=== PATIENT | male | born 1980 | race Caucasian/White ===

== ENCOUNTER 2025-01-19 10:11 | Emergency (ER) | payer OTHER, SELFPAY ==
[2025-01-19] VITALS (19 sets, daily range): BP systolic 156–198; BP diastolic 82–142; PULSE 66–82; RESP 14–22; TEMP 36.4–36.8; O2SAT 96–100; BMI 33.2
--- NOTE | 2025-01-19 10:27 | ED.DIZZY ---
HPI - Dizziness General Chief Complaint: General Medical Stated Complaint: HYPERTENSION,DIZZINESS PER EMS Time Seen by Provider: 01/19/25 10:25 Source: patient, EMS, RN notes reviewed and old records reviewed Mode of arrival: EMS History of Present Illness ED Provider: Autumn Mcneil PA-C HPI Narrative: 44-year-old male with a past medical history of HTN, anxiety, presenting to the ED via EMS complaining of elevated BP since the beginning of the year, worsening recently. Admits has been prescribed Propranolol for anxiety, &newly prescribed Hydralazine 1 week ago by his Digital Ad[employer] Specialist at the [place]. states he has been more aware/monitoring his blood pressures, today was 214/140 and 188/142 for EMS. Admits to compliance with prescribed medications, took 50 mg of Hydralazine this morning and his prescribed Propranolol. Reports mild headache x awhile, unchanged. Denies vision change or loss, numbness, tingling, weakness, CP/SOB, lightheadedness/dizziness, nausea/vomiting Related Data Allergies Allergy/AdvReac Type Severity Reaction Status Date / Time lactose Allergy Intermediate Gastrointestinal Verified 01/19/25 10:35 Upset Review of Systems Review of Systems: Yes all other systems are reviewed and are negative Constitutional: Constitutional: Reports as per HPI Neurologic: Denies Abnormal speech present [facility] Past Medical History Attestation statement: The following information was validated with the patient. Source: old records reviewed Social History Social History Advance Directives: No Advance Directives Information Provided: Yes Physical Exam Vital Signs: Vital Signs: Last Vital Signs Temp 98.1 F 01/19/25 16:01 Pulse 76 01/19/25 16:01 Resp 20 01/19/25 16:01 BP 181/112 H 01/19/25 16:01 Pulse Ox 99 01/19/25 16:01 O2 Del Method Room Air 01/19/25 16:01 BMI result Body Mass Index 33.2 Const: General: cooperative, healthy appearing and no acute distress Orientation/consciousness: patient oriented x3 Limitations: no limitations HEENT: Head: Yes normal to inspection and Yes atraumatic Ears: hearing grossly normal bilaterally General nose exam: Normal external nose present Face and sinus: Yes normal facial exam Throat: Yes posterior oropharynx normal, Yes tonsils normal and Yes uvula midline Eyes: General: appearance normal, both eyes and all related structures Pupils: Equal, round and reactive pupils present EOM: EOMs intact bilaterally Neck: Neck: Yes normal visual inspection and Yes no meningeal signs Resp: Effort & Inspection: normal respiratory effort and no respiratory distress Auscultation: clear to auscultation bilaterally, no crackles, no rales, no rhonchi and no wheezes Cardio: Rate: regular rate Heart sounds: S1 normal heart sound present and S2 normal heart sound present GI: Inspection: Yes normal to inspection Palpation (GI): Soft to palpation, nontender, no guarding and not rigid Skin: Rashes: no rashes Wounds: no wounds Neuro: General: patient oriented x3, tone normal, moves all extremities, no meningeal signs, no focal motor deficits and CN's II-XI intact bilaterally Cranial nerves: Yes CN's II-XII intact bilaterally, Yes Equal, round and reactive pupils present and Yes Bilaterally intact EOM present Cognition (Neuro): normal cognition Speech: No Abnormal speech present Gait exam (Neuro): Normal gait present Motor exam (neuro): 5/5 motor strength present throughout Extrem: General: Yes normal to inspection Course Course Course Narrative: -blood pressure increasing to 186/110 > patient states he is due for his 50 mg of hydralazine. Will dose appropriately and re-evaluate -labs are reassuring. Initial troponin 8.3, will obtain repeat -tox screen positive for THC > repeat troponin without rise, mi unlikely -BP remain elevated, patient very anxious, stressed, suspect this is related to his elevated BP. Will give dose of p.o. amlodipine > BP slightly improved after p.o. amlodipine. Patient increasingly anxious/agitated surrounding ride home. We will give his PRN home dose of Klonopin. Will be taking Uber home -1652--BP 177/103. Patient remains asymptomatic, continues to feel stressed he is in the emergency department. -1700--blood pressure 163/99 after home dose Klonopin given. Safe for discharge home at this time. Discussed he needs to [facility]. His hydralazine is new, & likely needs to be adjusted, his BP needs to be monitored closely. Will not be adding additional prescription at this time Results discussed with patient including worrisome signs and symptoms and strict return precautions, and when to return to the emergency department. They verbalized understanding and feel safe for discharge at this time. Medications Administered Discontinued Medications Generic Name Dose Route Start Last Admin Trade Name Cain PRN Reason Stop Dose Admin Amlodipine Besylate 5 mg 01/19/25 13:50 01/19/25 14:08 Amlodipine Besylate 5 Mg Tablet PO 01/19/25 13:51 5 mg ONCE ONE Administration Protocol Clonazepam 1 mg 01/19/25 15:52 01/19/25 16:04 Clonazepam 1 Mg Tablet PO 01/19/25 15:53 1 mg ONCE ONE Administration Hydralazine HCl 25 mg 01/19/25 11:53 01/19/25 12:36 Hydralazine Hcl 25 Mg Tablet PO 01/19/25 11:54 25 mg ONCE ONE Administration Protocol Hydralazine HCl 25 mg 01/19/25 12:28 01/19/25 12:36 Hydralazine Hcl 25 Mg Tablet PO 01/19/25 12:29 25 mg ONCE ONE Administration Protocol Medical Decision Making Medical Decision Making MDM Narrative: 44-year-old male with a past medical history of HTN, anxiety, presenting to the ED via EMS complaining of elevated BP since the beginning of the year, worsening recently. On exam hypertensive 174/106, NAD, nontoxic appearing, no focal neuro deficits. Concern for hypertensive urgency/emergency. Low suspicion for ICH. Rule out ADIN/atypical ACS. Plan: EKG, labs, BP monitoring Please refer to course for remaining clinical decision making, interpretation of labs/imaging results, and discussions with consultants and/or family members. Differential Diagnosis Differential Diagnoses: The differential diagnosis associated with the presentation includes As above Admission/Observation Consideration of admission/observation: Escalation of care including admission/observation considered Lab Data [facility] Lab Attestation statement: I reviewed the patient's lab results. 01/19/25 10:52 01/19/25 10:52 Labs: Lab Results 01/19/25 01/19/25 01/19/25 Range/Units 10:52 11:45 12:32 WBC 8.1 (4.8-10.8) X10*3/uL RBC 4.94 (4.60-5.80) X10*6/uL Hgb 14.7 (14.0-18.0) g/dl Hct 43.2 (42.0-52.0) % MCV 87.4 (80.0-98.0) fL MCH 29.8 (27.0-33.0) pg MCHC 34.0 (31.0-36.0) g/dl RDW 13.7 (11.0-16.0) % Plt Count 265 (160-400) X10*3/uL MPV 9.8 (9.4-12.4) fL Immature Gran % (Auto) 0.4 (0.0-0.4) % Neut % (Auto) 51.7 (45-73) % Lymph % (Auto) 36.9 (20-40) % [place] % (Auto) 8.4 (2-11) % Eos % (Auto) 2.0 (0-4) % Baso % (Auto) 0.6 (0-2) % Lymph # (Auto) 3.0 (1.2-4.9) X10*3/uL [place] # (Auto) 0.7 (0.1-1.2) X10*3/uL Eos # (Auto) 0.2 (0.0-0.4) X10*3/uL Baso # (Auto) 0.1 (0.0-0.2) X10*3/uL Abs Immat Gran (auto) 0.03 (0.00-0.03) X10*3/uL Absolute Neuts (auto) 4.2 (2.0-8.3) x10*3/uL Absolute Nucleated RBC 0.000 (0.0-0.012) X10*3/uL Nucleated RBC % (auto) 0.0 (0.0-0.2) /100WBC Sodium 140 (135-145) mmol/L Potassium 3.8 (3.3-5.1) mmol/L Chloride 106 (96-108) mmol/L Carbon Dioxide 26 (22-29) mmol/L Anion Gap 12 (12-20) BUN 15 (9-16) mg/dL Creatinine 0.85 (0.5-1.4) mg/dL Estim Creat Clear Calc 137.0 Estimated GFR > 60 Random Glucose 94 (60-115) mg/dL Calcium 9.0 (8.4-10.2) mg/dL Magnesium 2.1 (1.6-2.6) mg/dL Total Bilirubin 0.4 (0.0-1.0) mg/dL Direct Bilirubin 0.1 (0.0-0.5) mg/dL AST 21 (5-37) U/L ALT 31 (0-40) U/L Troponin I High Sens 8.3 6.4 (<3.5-35.0) ng/L Total Protein 6.8 (6.5-8.0) g/dL Albumin 4.3 (3.5-5.0) g/dL Urine Color Yellow Urine Appearance Clear Urine pH 7.0 (5.0-9.0) Ur Specific [place] <= 1.005 (1.005-1.025) Urine Protein Negative (Neg-Trace) mg/dL Urine Glucose (UA) Negative (Negative) mg/dL Urine Ketones Negative (Negative) mg/dL Urine Blood Negative (Negative) Urine Nitrite Negative (Negative) Ur Leukocyte Esterase Negative (Negative) Urine Opiates Screen Not Detected (Not Detect) Ur Buprenorphine Scrn Not Detected (Not Detect) ng/mL Ur Oxycodone Screen Not Detected (Not Detect) ng/mL Urine Methadone Screen Not Detected (Not Detect) ng/mL Urine Fentanyl Screen Not Detected (Not Detect) Ur Barbiturates Screen Not Detected (Not Detect) Ur Phencyclidine Scrn Not Detected (Not Detect) Ur Amphetamines Screen Not Detected (Not Detect) U Benzodiazepines Scrn Not Detected (Not Detect) Urine Cocaine Screen Not Detected (Not Detect) U Marijuana (THC) Screen POSITIVE H (Not Detect) Independent Interpretation I performed an independent interpretation of an: EKG Radiology Impression Discussion of test interpretation with radiology: I have reviewed the radiologist's reading. Independent Historian Clinical information obtained from an independent historian. History obtained from or confirmed by: EMS External Record Review External record reviewed: Inpatient record, Office record, Outpatient record, Prior outpatient labs, Prior outpatient radiology, Primary care record and Outside ED record Tests considered The following testing was considered but not selected: As above Prescription Management I considered prescription management with: Other Chronic Conditions Patient?s care impacted by: Hypertension and Other Social Determinants Patient?s care significantly limited by Social Determinants of Health including: Problems related to primary support group and Other Social Determinant of Health Discharge Plan Discharge Clinical Impression: Uncontrolled hypertension Patient Disposition: Home, Self-Care Instructions: Heart Healthy Diet (DC), Hypertension (ED) Additional Instructions: Your blood work was reassuring today It is crucial you take your blood pressure medications as prescribed and do not miss any doses Continue to monitor blood pressure if remains high, you develop any lightheadedness, dizziness, headaches, chest pains, weakness, numbness or tingling return to the ED immediately Referrals: Physician,Areli J [Primary Care Provider] - 2 days Print Language: French
--- NOTE | 2025-01-19 10:36 | ECG_ITS ---
Test Reason : htn Blood Pressure : */* mmHG Vent. Rate : 64 BPM Atrial Rate : 64 BPM P-R Int : 166 ms QRS Dur : 94 ms QT Int : 400 ms P-R-T Axes : 39 27 8 degrees QTcB Int : 412 ms Normal sinus rhythm Normal ECG No previous ECGs available Referred By: Autumn Mcneil Electronically Signed By: FANNIE CHI
[2025-01-19 10:58] LABS: MANUAL DIFF FLAG NO
[2025-01-19 10:59] LABS: Basophils Absolute Auto 0.1 X10*3/uL (0.0-0.2); Basophils Percent Auto 0.6 % (0-2); Eosinophils Absolute Auto 0.2 X10*3/uL (0.0-0.4); Hematocrit 43.2 % (42.0-52.0); Hemoglobin 14.7 g/dl (14.0-18.0); Imm Gran Abs Auto 0.03 X10*3/uL (0.00-0.03); Imm Gran Pct Auto 0.4 % (0.0-0.4); Lymphocytes Percent Auto 36.9 % (20-40); Mean Corpuscular Hemoglobin 29.8 pg (27.0-33.0); Mean Corpuscular Volume 87.4 fL (80.0-98.0); Mean Platelet Volume 9.8 fL (9.4-12.4); Monocytes Absolute Auto 0.7 X10*3/uL (0.1-1.2); Monocytes Percent Auto 8.4 % (2-11); Neutrophils Absolute Auto 4.2 x10*3/uL (2.0-8.3); Neutrophils Percent Auto 51.7 % (45-73); Platelet Count 265 X10*3/uL (160-400); Red Blood Count 4.94 X10*6/uL (4.60-5.80); Red Cell Distribution Width 13.7 % (11.0-16.0); White Blood Count 8.1 X10*3/uL (4.8-10.8)
[2025-01-19 11:29] LABS: Troponin-I High Sensitivity 8.3 ng/L (<3.5-35.0)
[2025-01-19 11:54] LABS: Appearance Urine Clear; Color Urine Yellow; Glucose Urine UA Negative (Negative); Leukocyte Esterase Urine Negative (Negative); Nitrite Urine Negative (Negative); Specific Gravity - Urine <= 1.005 (1.005-1.025); Urine Blood Negative (Negative); Urine Ketones Negative (Negative); Urine Protein Negative (Neg-Trace)
[2025-01-19 12:04] LABS: Amphetamine Screen Urine Not Detected (Not Detect); Barbiturates, Urine Not Detected (Not Detect); Benzodiazepines Screen Urine Not Detected (Not Detect); Buprenorphine Scr Not Detected (Not Detect); Cannabinoid Screen Urine POSITIVE (Not Detect); Cocaine Screen Urine Not Detected (Not Detect); Fentanyl, urine Not Detected (Not Detect); Methadone Screen, Urine Not Detected (Not Detect); Opiate Screen Urine Not Detected (Not Detect); Oxycodone Screen Urine Not Detected (Not Detect); Phencyclidine Screen Urine Not Detected (Not Detect)
[2025-01-19 12:07] LABS: Alanine Aminotransferase 31 U/L (0-40); Albumin Level 4.3 g/dL (3.5-5.0); Anion Gap 12 (12-20); Aspartate Amino Transferase 21 U/L (5-37); Bilirubin Direct 0.1 mg/dL (0.0-0.5); Bilirubin Total 0.4 mg/dL (0.0-1.0); Blood Urea Nitrogen 15 mg/dL (9-16); Carbon Dioxide 26 mmol/L (22-29); Chloride 106 mmol/L (96-108); Estimated Glomerular Filt Rate > 60; Glucose Random 94 mg/dL (60-115); Magnesium 2.1 mg/dL (1.6-2.6); Potassium 3.8 mmol/L (3.3-5.1); Sodium 140 mmol/L (135-145); Total Protein 6.8 g/dL (6.5-8.0)
--- NOTE | 2025-01-19 12:30 | PC.NURSE ---
When attempting to medicate the patient, he stated I normally take Hydralazine 50mg now . Spoke with FLORENCIA Singh regarding this. Agreed to enter a 2nd order of Hydralazine 25mg for a total administration of Hydralazine 50mg for elevated BP.
[2025-01-19] MEDS: hydrALAZINE HCl 25 MG TABLET PO ×2 (12:36)
--- OUTSIDE RECORDS SUMMARY | 2025-01-19 13:05 | XMS_ITS | Continuity of Care Document ---
Author Name [facility] Organization [facility] Care Team Providers Care Business Strategist Name Role Phone [facility] Unavailable Unavailable Problems Combined list of problems from Department of Defense and Veterans Affairs facilities. It does not include entries that were removed or entered in error. Problem Status Onset Date Problem Type Date of Resolution Comments Source Sleep Apnea (SCT 16766778) Active 020 Condition Sep 27, 2020 Entered By: ANDREA MADERA Comment: Home Sleep test 06/2020 [facility] Attention deficit hyperactivity disorder Active Condition [facility] Attention deficit hyperactivity disorder Active Condition Apr 172019 Entered By: TELMA GUERRERO Comment: per chart reviewJul 11, 2021 Entered By: TELMA GUERRERO Comment: reviewed [facility] Attention deficit hyperactivity disorder, combined type Active Condition [facility] Back pain Active Condition [facility] Bipolar disorder Active Condition Apr 29, 2020 Entered By: VEGA PAULINO Comment: on lithiumOct 2020 Entered By: TELMA GUERRERO Comment: reviewed [facility] Bipolar disorder (SNOMED CT 29134799) Active Condition [facility] Cannabis dependence, continuous (SNOMED CT 438391221) Active Condition [facility] Dyslipidaemia Active Condition Jul Entered By: VEGA PAULINO Comment: 05/2020 LDL 162 no pharm tx [facility] Erectile dysfunction Active Condition [facility] Erectile dysfunction Active Condition Apr 29, 2020 Entered By: VEGA PAULINO Comment: on sildenafil [facility] Erectile Dysfunction (SCT 782854593) Active Condition [place] Family history of diabetes mellitus type 2 Active Condition [facility] HTN - Hypertension (SCT 11390510) Active Condition [place] Hypercholesterolemia Active Condition [facility] Hyperlipidemia Active Condition [facility] Hyperlipidemia (SCT 44077524) Active Condition [place] Low back pain (SNOMED CT 690519251) Active Condition [facility] Mixed anxiety and depressive disorder (SNOMED CT 072449513) Active Condition [facility] Moderate mood disorder (SNOMED CT 8796642) Active Condition [facility] Obesity Active Condition [place] Pain in thoracic spine Active Condition [place] Panic disorder Active Condition Jun 172020 Entered By: TELMA GUERRERO Comment: reviewed [facility] Secondary hypertension Active Condition [place] Spasm of back muscles Active Condition [facility] Spasm of back muscles (SNOMED CT 950499555) Active Condition [facility] Tobacco Use * Active Condition [facility] Vitamin D Deficiency (SCT 55471455) Active Condition [place] Weight gain Active Condition [facility] BACK STRAIN Inactive Condition DoD SUBUNGUAL HEMATOMA RIGHT HAND THUMB Inactive Condition DoD SUBUNGUAL HEMATOMA LEFT HAND THUMB Inactive Condition DoD fear of possible inheritable condition Active Condition DoD AXIS IV PROBLEMS OCCUPATIONAL Active Condition DoD HYPERTENSION (SYSTEMIC) Active Condition DoD cough Active Condition Do[facility] Blood Pressure Isolated Elevated Active Condition [facility] Intervention And Counseling On Cessation Of Tobacco Use Active Condition DoD diarrhea Active Condition DoD ANKLE SPRAIN Inactive Condition DoD AXIS V GLOBAL ASSESS OF FUNCTIONING (GAF) SCALE ___ (100-0) Active Condition DoD PSYCHIATRIC DIAGNOSIS OR CONDITION DEFERRED ON AXIS III Active Condition DoD PSYCHIATRIC DIAGNOSIS OR CONDITION DEFERRED ON AXIS II Active Condition DoD ADJUSTMENT DISORDER WITH ANXIETY AND DEPRESSED MOOD Active Condition DoD midback pain Active Condition DoD ankle joint pain Active Condition DoD FRACTURE OF ANKLE Inactive Condition DoD Body Mass Index Inactive Condition DoD ESSENTIAL HYPERTRIGLYCERIDEMIA Active Condition DoD HYPERLIPIDEMIA Active Condition DoD HIP SPRAIN HAMSTRING INSERTION LEFT Active Condition DoD ADJUSTMENT DISORDER WITH DEPRESSED MOOD Active Condition DoD visit for: services physical Active Condition DoD Outpatient Physician Consultation Active Condition DoD DYSMETABOLIC SYNDROME X Active Condition DoD visit for: issue medical certificate Inactive Condition DoD ADJUSTMENT DISORDER W/ ANXIETY AND PROLONGED DEPRESSED MOOD Active Condition DoD ADJUSTMENT DISORDER WITH ANXIOUS MOOD Active Condition DoD ASSESSMENT OF PATIENT CONDITION WORK STATUS Active Condition DoD UPPER RESPIRATORY INFECTION ACUTE Inactive Condition DoD LUMBAGO Active Condition DoD ABNORMAL WEIGHT GAIN Active Condition D oD OBESITY Active Condition Overweight /Obe sity (NC-3.3) related to (cause by) energy intake exceeding energy output AEB elevated BMI (V85.32) DoD Patient Education Dietary Changing Eating Habits Active Condition Food and nutrition-rela chiki knowledge deficit (NB-1.1) related to (caused by) not fully understanding how diet and exercise lifestyle choices affect long-term health prognosis AEB referral for Medical Nutrition Therapy intervention education DoD RHINITIS Active Condition DoD SOMATIC DYSFUNCTION OF SACRUM Active Condition DoD NICOTINE DEPENDENCE Active Condition Previously used with efexor anmd stratera without problems DoD CERVICALGIA Active Condition likely s tress related. 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, PANIC ATTACKS Active Condition DoD tobacco use Active Condition DoD ALCOHOL ABUSE - IN REMISSION Active Condition DoD ANXIETY DISORD DUE TO GEN MEDICAL COND, GENERALIZED ANXIETY Active Condition DoD PSYCHIATRIC DIAGNOSIS OR CONDITION DEFERRED ON AXIS I Active Condition DoD ALCOHOL ABUSE Active Condition DoD GENERALIZED ANXIETY DISORDER Active Condition DoD PARTNER RELATIONAL PROBLEM Inactive Condition DoD DEPRESSION WITH ANXIETY Active Condition DoD ACUTE BRONCHITIS Inactive Condition DoD SOMATIC DYSFUNCTION OF LUMBAR REGION Active Condition DoD SOMATIC DYSFUNCTION OF CERVICAL REGION Active Condition DoD SOMATIC DYSFUNCTION OF THORACIC REGION Active Condition DoD KNEE SPRAIN Inactive Condition DoD ALLERGIC RHINITIS Active Condition DoD anxiety Active Condition pt to [facility]. Is presently seeing them. [facility] CORNEAL DEGENERATION RECURRENT EROSION Active Condition DoD REFRACTIVE ERROR - MYOPIA Active Condition DoD ASTIGMATISM - REGULAR Active Condition DoD DEPRESSION Active Condition DoD insomnia Active Condition Pt to call for refills prn. 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 Medication Details Route Status Patient Instructions Prescription Expires Prescription Number Last Dispense Date Ordering Provider Order Date Order Qty Source BUPROPION HCL 300MG 24HR TAB,SA TAKE ONE TABLET BY MOUTH EVERY MORNING FOR MOOD ORAL ACTIVE 11/28/2025 [id number] 5 LEESA GUERRERO 2024 30 [place] BUPROPION HCL 300MG 24HR TAB,SA TAKE ONE TABLET BY MOUTH EVERY MORNING FOR MOOD ORAL DISCONT INUED 08/29/2025 [id number] 5 LEESA GUERRERO ANGLE 2023 30 [place] BUPROPION HCL 300MG 24HR TAB,SA TAKE ONE TABLET BY MOUTH EVERY MORNING FOR MOOD ORAL DISCONT INUED 08/01/2025 [id number] 4 LEESA GUERRERO ANGLE 2023 30 [place] BUPROPION HCL 300MG 24HR TAB,SA TAKE ONE TABLET BY MOUTH EVERY MORNING FOR MOOD ORAL DISCONT INUED 01/09/2025 [id number] 4 LEESA GUERRERO ANGLE 2023 30 [place] BUPROPION HCL 300MG 24HR TAB,SA TAKE ONE TABLET BY MOUTH EVERY MORNING FOR MOOD ORAL DISCONT INUED 10/25/2024 [id number] 4 LEESA GUERRERO ANGLE 2023 30 [place] BUPROPION HCL 300MG 24HR TAB,SA TAKE ONE TABLET BY MOUTH EVERY MORNING FOR MOOD ORAL DISCONT INUED 08/01/2024 [id number] 4 LEESA GUERRERO ANGLE 2022 30 [place] CAMPHOR/MEN THOL/METHYL SALICYLATE PATCH APPLY 1 PATCH TOPICALL Y ONCE DAILY NEEDED FOR PAIN (REMOVE PATCH AFTER 8 TO 12 HOURS) TOPICA L 07/05/2024 [id number] ABIMAEL MARYEN F 2022 120 [place] CHOLECALCIF FARRAH 25MCG (1,000UNIT) TAB TAKE ONE TABLET BY MOUTH ONCE DAILY FOR VITAMIN SUPPLEME NTATION ORAL 08/12/2024 [id number] ABIMAEL MARY F 2022 90 [place] DIPHENHYDRA MINE HCL 12.5MG/5ML (ALC-F) LIQUID TAKE 1 TEASPOON FUL (5ML) BY MOUTH AT BEDTIME NEEDED ORAL ACTIVE LEESA GUERRERO 2019 [place] HYDRALAZINE HCL 25MG TAB TAKE ONE TABLET BY MOUTH THREE TIMES DAILY NEEDED FOR HIGH BLOOD PRESSURE TAKE ONE TABLET IF SYSTOLIC PRESSURE IS BETWEEN 150-165 AND 2 TABLETS IF SYSTOLIC PRESSURE IS GREATER THAN 165. DO NOT TAKE THE MED IN THE EVENING WHEN YOU TAKE SILDENAF IL SINCE BLOOD PRESSURE MAY DROP TOO LOW TAKE ONE TABLET IF SYSTOLIC PRESSURE IS BETWEEN 150-165 AND 2 TABLETS IF SYSTOLIC PRESSURE IS GREATER THAN 165. DO NOT TAKE THE MED IN THE EVENING WHEN YOU TAKE SILDENAF [place] SINCE BLOOD PRESSURE MAY DROP TOO LOW ORAL ACTIVE 01/05/2026 [id number] ROBERTODEMI TA 2024 250 [place] LITHIUM CARBONATE 300MG TAB,SA TAKE FIVE TABLETS BY MOUTH AT BEDTIME TO STABILIZ E MOOD ORAL DISCONT INUED BY PROVIDE R 08/01/2025 [id number] 4 LEESA GUERRERO 2023 150 [place] LITHIUM CARBONATE 300MG TAB,SA TAKE FIVE TABLETS BY MOUTH AT BEDTIME TO STABILIZ E MOOD ORAL DISCONT INUED 08/01/2024 [id number] 4 LEESA GUERRERO 2022 150 [place] LUMATEPERON E 21MG CAP,ORAL TAKE ONE CAPSULE BY MOUTH AT BEDTIME FOR BIPOLAR DEPRESSI ON ORAL DISCONT INUED (EDIT) 08/01/2025 [id number] LEESA GUERRERO 2023 30 [place] LUMATEPERON E 42MG CAP,ORAL TAKE ONE CAPSULE BY MOUTH AT BEDTIME FOR BIPOLAR DEPRESSI ON ORAL ACTIVE 11/28/2025 [id number] 5 LEESA GUERRERO 2024 30 [place] LUMATEPERON E 42MG CAP,ORAL TAKE ONE CAPSULE BY MOUTH AT BEDTIME FOR BIPOLAR DEPRESSI ON ORAL DISCONT INUED 10/24/2025 [id number] 5 LEESA GUERRERO 2024 30 [place] LUMATEPERON E 42MG CAP,ORAL TAKE ONE CAPSULE BY MOUTH AT BEDTIME FOR BIPOLAR DEPRESSI ON ORAL DISCONT INUED 08/29/2025 [id number] LEESA GUERRERO 2023 30 [place] MELATONIN CAP/TAB TAKE BY MOUTH AT BEDTIME NEEDED ORAL ACTIVE LEESA GUERRERO ANGLE 2019 [place] METOPROLOL SUCCINATE 50MG TAB,SA TAKE ONE TABLET BY MOUTH EVERY EVENING FOR BLOOD PRESSURE /HEART (REPLACE S 25 MG DOSE) ORAL 08/12/2024 [id number] ABIMAEL MARY RMEN F 2022 90 [facility] IELD PROPRANOLOL HCL 10MG TAB TAKE ONE TABLET BY MOUTH TWICE DAILY FOR ANXIETY ORAL ACTIVE 11/28/2025 [id number] 5 LEESA GUERRERO ANGLE 2024 60 [facility] IELD PROPRANOLOL HCL 10MG TAB TAKE ONE TABLET BY MOUTH TWICE DAILY FOR ANXIETY ORAL DISCONT INUED 08/29/2025 [id number] 4 LEESA GUERRERO ANGLE 2023 60 [facility] IELD PROPRANOLOL HCL 10MG TAB TAKE ONE TABLET BY MOUTH TWICE DAILY FOR ANXIETY ORAL DISCONT INUED 08/01/2025 [id number] 4 LEESA GUERRERO ANGLE 2023 60 [facility] IELD PROPRANOLOL HCL 10MG TAB TAKE ONE TABLET BY MOUTH TWICE DAILY FOR ANXIETY ORAL DISCONT INUED 01/09/2025 [id number] 4 LEESA GUERRERO ANGLE 2023 60 [facility] IELD PROPRANOLOL HCL 10MG TAB TAKE ONE TABLET BY MOUTH TWICE DAILY FOR ANXIETY ORAL DISCONT INUED 10/25/2024 [id number] 4 LEESA GUERRERO ANGLE 2023 60 [facility] IELD SALIVA,MARIE FICIAL SPRAY,ORAL 2 SPRAYS BY MOUTH EVERY 2 HOURS NEEDED FOR DRY MOUTH ORAL ACTIVE 11/28/2025 [id number] 5 LEESA GUERRERO ANGLE 2024 236 [place] SALIVA,MARIE FICIAL SPRAY,ORAL 2 SPRAYS BY MOUTH EVERY 2 HOURS NEEDED FOR DRY MOUTH ORAL DISCONT INUED 10/24/2025 [id number] LEESA GUERRERO ANGLE 2024 236 [place] SILDENAFIL CITRATE 100MG TAB TAKE ONE TABLET BY MOUTH ONCE DAILY NEEDED FOR ERECTILE DYSFUNCT ION TAKE 1 HOUR PRIOR TO SEXUAL ACTIVITY ORAL ACTIVE 11/28/2025 [id number] JEFFTYREELEESA ANGLE 2024 18 [facility] SILDENAFIL CITRATE 100MG TAB TAKE ONE TABLET BY MOUTH ONCE DAILY NEEDED TAKE 1 HOUR PRIOR TO SEXUAL ACTIVITY ORAL 08/05/2024 [id number] 4 ABIMAEL MARY RMEN F 2022 6 [facility] IELD Allergies, Adverse Reactions, Alerts Combined list of allergies from Department of Defense and Veterans Affairs facilities. It does not include entries that were removed or entered in error. Substance Category Reaction Severity Reaction type Status Date Reported Comments Source No Known Allergies Drug allergy (disorder) active 04/15/2008 [employer] Immunizations Combined list of available immunizations from the Department of Defense and Veterans Affairs facilities. 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 COVID-19 (MODERNA), MRNA, LNP-S, PF, 100 MCG/0.5 ML DOSE 1 2020 207 complet ed [facility] [place] [facility] INFLUENZA, INJECTABLE, QUADRIVALENT, PRESERVATIVE FREE 2019 150 complet ed HISTORICA L INFORMATI ON - FROM OTHER PROVIDER, Partner:C CN1.Admin istered by:[facility] ETT.([id number]).N DC:[phone].Add ress:[address]AMHERS GOLDSTEIN.[id number] [facility] [place] [facility] INFLUENZA, INJECTABLE, QUADRIVALENT 2018 158 complet ed Site: Left Deltoid [facility] FLU,3 YRS (HISTORICAL) 2015 88 complet ed Site: Left Deltoid [facility] PNEUMOCOCCAL POLYSACCHARID E [id number] 2015 33 complet ed [facility] DTAP, UNSPECIFIED FORMULATION 2013 107 complet ed Site: Left Deltoid [facility] influenza, live, intranasal, quadrivalent 10 2012 [id number] MedImmune[employer] Inc. (MED) complet ed influenza , live, intranasa l, quadrival ent DoD FLU,3 YRS (HISTORICAL) 2012 88 complet ed [place] [facility] influenza virus vaccine, live, attenuated, for intranasal use 9 2011 [id number] 111 [employer] (MED) complet ed influenza virus vaccine, live, attenuate d, for intranasa l use DoD tetanus toxoid, reduced diphtheria toxoid, and acellular pertu is vaccine, adsorbed 0 2011 [id number] 115 Sanofi Pasteur (PMC) complet ed tetanus toxoid, reduced diphtheri a toxoid, and acellular pertussis vaccine, adsorbed DoD Influenza, seasonal, injectable 1 2010 [id number] 141 Sanofi Pasteur (PMC) complet ed Influenza , seasonal, injectabl e DoD influenza virus vaccine, split virus (incl. purified surface antigen)-reti red CODE 1 2009 [id number] 15 Sanofi Pasteur (PMC) complet ed influenza virus vaccine, split virus (incl. purified surface antigen)- retired CODE DoD Novel influenza-H1N 1-09, injectable 1 2009 [id number] 1 127 [employer] (NOV) complet ed Novel influenza -Q1I1-07, injectabl e DoD influenza virus vaccine, live, attenuated, for intranasal use 1 2008 [id number] 111 MedImmune, Inc. (MED) complet ed influenza virus vaccine, live, attenuate d, for intranasa l use DoD influenza virus vaccine, live, attenuated, for intranasal use 1 2007 [id number] 111 MedImmune, Inc. (MED) complet ed influenza virus vaccine, live, attenuate d, for intranasa l use DoD influenza virus vaccine, live, attenuated, for intranasal use 1 2006 [id number] 111 MedImmune, Inc. (MED) complet ed influenza virus vaccine, live, attenuate d, for intranasa l use DoD anthrax vaccine 1 2006 [id number] 24 [facility] complet ed anthrax vaccine DoD influenza virus vaccine, live, attenuated, for intranasal use 1 2005 [id number] 111 [employer]. (MED) complet ed influenza virus vaccine, live, attenuate d, for intranasa l use DoD typhoid vaccine, live, oral 1 2005 [id number] 25 [employer] ([employer]) complet ed typhoid vaccine, live, oral DoD influenza virus vaccine, split virus (incl. purified surface antigen)-reti red CODE 1 2004 [id number] 15 Sanofi Pasteur (PMC) complet ed influenza virus vaccine, split virus (incl. purified surface antigen)- retired CODE DoD hepatitis A vaccine, adult dosage 2 2004 [id number] 52 Merck (MSD) complet ed hepatitis A vaccine, adult dosage DoD influenza virus vaccine, live, attenuated, for intranasal use 0 2003 [id number] 111 [employer] (MED) complet ed influenza virus vaccine, live, attenuate d, for intranasa l use DoD measles, mumps and rubella virus vaccine 0 2003 03 () Not Given measles, mumps and rubella virus vaccine DoD varicella virus vaccine 1 2003 21 () Not Given varicella virus vaccine DoD hepatitis B vaccine, adult dosage 1 2003 43 () Not Given hepatitis B vaccine, adult dosage DoD hepatitis A vaccine, adult dosage 1 2003 [id number] 52 [employer] (SKB) complet ed hepatitis A vaccine, adult dosage DoD tetanus and diphtheria toxoids, adsorbed, preservative free, for adult use (2 Lf of tetanus toxoid and 2 Lf of diphtheria toxoid) 0 2003 [id number] 09 Sanofi Pasteur (PMC) complet ed tetanus and diphtheri a toxoids, adsorbed, preservat [place] free, for adult use (2 Lf of tetanus toxoid and 2 Lf of diphtheri a toxoid) DoD poliovirus vaccine, inactivated 0 2003 [id number] Sanofi Pasteur (PMC) complet ed polioviru s vaccine, inactivat ed DoD meningococcal polysaccharid e vaccine (MPSV4) 0 2003 [id number] 32 Sanofi Pasteur (PMC) complet ed meningoco ccal polysacch aride vaccine (MPSV4) DoD Results Combined list of recent chemistry, hematology and other laboratory results from Department of Defense and Veterans Affairs, ranging from 15 months to all on record, depending upon the facility. Order Name Results Value Reference Range Date Interpretation Specimen Comments Source METANEPHR RALF, SAGAR ATKINS, PLASMA METANEPHRIN ES [MASS/VOLUM E] IN SERUM OR PLASMA 77 pg/mL 12/31 H Specimen Type: PLASMA Comment: REFERENCE RANGE: <=57 pg/mL This test was developed and its analytical performance characteris tics have been determined by [place]. It has not been cleared or approved by the U.S. Food and Drug Administrat ion. This assay has been validated pursuant to the CLIA regulations and is used for clinical purposes. REFERENCE RANGE: <=148 pg/mL This test was developed and its analytical performance characteris tics have been determined by [place]. It has not been cleared or approved by the U.S. Food and Drug Administrat ion. This assay has been validated pursuant to the CLIA regulations and is used for clinical purposes. REFERENCE RANGE: <=205 pg/mL For additional information , please refer to [email or web address] [email or web address] [email or web address] (This link is being provided for information al/educatio information al/educatio nal purposes only.) Elevations >4-fold upper reference range: strongly suggestive of a pheochromoc ytoma(1). Elevations >1- 4-fold upper reference range: significant but not diagnostic, may be due to medications or stress. Suggest running 24 hr urine fractionate d metanephrin es and/or serum Chromagrani n A for confirmatio n. Reference: (1)Tiffany Andrade et bharti, Plasma Chromograni n A or Urine Fractionate d Metanephrin es Follow-Up Testing Improves the Diagnostic Accuracy of Plasma Fractionate d Metanephrin es for Pheochromoc ytoma. The Journal of Clinical Endocrinolo gy # Metabolism 93(1), 91-95, 2008. This test was developed and its analytical performance characteris tics have been determined by [place] It has not been cleared or approved by the U.S. Food and Drug Administrat ion. This assay has been validated pursuant to the CLIA regulations and is used for clinical purposes. Test Performed by [facility], [employer], [address] [place], [place] Tripp Crowder M.D., Ph.D., Director of Laboratorie s , CLIA [id number] TEST PERFORMED AT: , Ordering Provider: UNRULY MEJIA Report Released Date/Time: Dec 30, 2024 10:58 PM Reporting Lab: [place] [facility] [place] [facility] [address] [id number] Performing Lab: [place] [address] [facility] [place] [facility] [address] [facility], [address] [place] [address] [place] [address] [facility] [place] [facility] METANEPHR RALF, FRACTIONA CHIKI, PLASMA NORMETANEPH RINE [MASS/VOLUM E] IN SERUM OR PLASMA 37 pg/mL 12/31 Specimen Type: PLASMA Comment: REFERENCE RANGE: <=57 pg/mL This test was developed and its analytical performance characteris tics have been determined by [place]. It has not been cleared or approved by the U.S. Food and Drug Administrat ion. This assay has been validated pursuant to the CLIA regulations and is used for clinical purposes. REFERENCE RANGE: <=148 pg/mL This test was developed and its analytical performance characteris tics have been determined by [place]. It has not been cleared or approved by the U.S. Food and Drug Administrat ion. This assay has been validated pursuant to the CLIA regulations and is used for clinical purposes. REFERENCE RANGE: <=205 pg/mL For additional information , please refer to [email or web address] [email or web address] [email or web address]/faq/Me tFractFree (This link is being provided for information al/educatio information al/educatio nal purposes only.) Elevations >4-fold upper reference range: strongly suggestive of a pheochromoc ytoma(1). Elevations >1- 4-fold upper reference range: significant but not diagnostic, may be due to medications or stress. Suggest running 24 hr urine fractionate d metanephrin es and/or serum Chromagrani n A for confirmatio n. Reference: (1)Tiffany Andrade et al, Plasma Chromograni n A or Urine Fractionate d Metanephrin es Follow-Up Testing Improves the Diagnostic Accuracy of Plasma Fractionate d Metanephrin es for Pheochromoc ytoma. The Journal of Clinical Endocrinolo gy # Metabolism 93(1), 91-95, 2007. This test was developed and its analytical performance characteris tics have been determined by [place]. It has not been cleared or approved by the U.S. Food and Drug Administrat ion. This assay has been validated pursuant to the CLIA regulations and is used for clinical purposes. Test Performed by [facility], [facility], [address] [place] [address] Tripp Crowder M.D., Ph.D., Director of Laboratorie s , CLIA [id number] TEST PERFORMED AT: , Ordering Provider: UNRULY MEJIA Report Released Date/Time: Dec 30, 2024 10:58 PM Reporting Lab: [facility] [address] [id number] Performing Lab: [facility] [address] [place] [facility] METANEPHR RALF, FRACTIONA CHIKI, PLASMA METANEPHRIN ES [MASS/VOLUM E] IN SERUM OR PLASMA 114 pg/mL 12/31 Specimen Type: PLASMA Comment: REFERENCE RANGE: <=57 pg/mL This test was developed and its analytical performance characteris tics have been determined by [place]. It has not been cleared or approved by the U.S. Food and Drug Administrat ion. This assay has been validated pursuant to the CLIA regulations and is used for clinical purposes. REFERENCE RANGE: <=148 pg/mL This test was developed and its analytical performance characteris tics have been determined by [place]. It has not been cleared or approved by the U.S. Food and Drug Administrat ion. This assay has been validated pursuant to the CLIA regulations and is used for clinical purposes. REFERENCE RANGE: <=205 pg/mL For additional information , please refer to [email or web address] (This link is being provided for information al/educatio information al/educatio nal purposes only.) Elevations >4-fold upper reference range: strongly suggestive of a pheochromoc ytoma(1). Elevations >1- 4-fold upper reference range: significant but not diagnostic, may be due to medications or stress. Suggest running 24 hr urine fractionate d metanephrin es and/or serum Chromagrani n A for confirmatio n. Reference: (1)Tiffany Andrade et al, Plasma Chromograni n A or Urine Fractionate d Metanephrin es Follow-Up Testing Improves the Diagnostic Accuracy of Plasma Fractionate d Metanephrin es for Pheochromoc ytoma. The Journal of Clinical Endocrinolo gy # Metabolism 93(1), 91-95, 2007. This test was developed and its analytical performance characteris tics have been determined by [employer] [place], [place]. It has not been cleared or approved by the U.S. Food and Drug Administrat ion. This assay has been validated pursuant to the CLIA regulations and is used for clinical purposes. Test Performed by [facility], [facility], [address] [place] [address] Tripp Crowder M.D., Ph.D., Director of Laboratorie s , CLIA [id number] TEST PERFORMED AT: , Ordering Provider: UNRULY MEJIA Report Released Date/Time: Dec 30, 2024 10:58 PM Reporting Lab: [place] [address] [facility] [address] [address] Performing Lab: [place] [address] [facility] CollegeFrogUSEMATTHEW VILLE [id number] [address] [facility] CARD.comCHUSE [facility] ALDOSTERO NE/PLASMA RENIN ACTIVITY RATIO ALDOSTERONE [MASS/VOLUM E] IN SERUM OR PLASMA --SUPINE 4 ng/dL 12/31 Specimen Type: PLASMA Comment: Unable to flag abnormal result(s), please refer Unable to flag abnormal result(s), please refer to reference range(s) below: to reference range(s) below: Adult Reference Ranges for Aldosterone , LC/MS/MS: Adult Reference Ranges for Aldosterone , LC/MS/MS: Upright 8:00 - 10:00 am < or = 28 ng/dL Upright 8:00 - 10:00 am < or = 28 ng/dL Upright 4:00 - 6:00 pm < or = 21 ng/dL Upright 4:00 - 6:00 pm < or = 21 ng/dL Supine 8:00 - 10:00 am 3 - 16 ng/dL Supine 8:00 - 10:00 am 3 - 16 ng/dL This test was developed and its analytical performance characteris tics have been determined by [facility] [place]. It has not been cleared or approved by the U.S. Food and Drug Administrat ion. This assay has been validated pursuant to the CLIA regulations and is used for clinical purposes. Test Performed by [facility], [facility], [address] [place] [address] Tripp Crowder M.D., Ph.D., Director of Laboratorie s , CLIA [id number] TEST PERFORMED AT: , Ordering Provider: UNRULY MEJIA Report Released Date/Time: Dec 30, 2024 10:58 PM Reporting Lab: [facility] [address] [address] Performing Lab: [facility]MAD[facility] [address] [address] [facility] ALDOSTERO NE/PLASMA RENIN ACTIVITY RATIO ALDOSTERONE [MASS/VOLUM E] IN SERUM OR PLASMA --UPRIGHT 4 ng/dL 12/31 Specimen Type: PLASMA Comment: Unable to flag abnormal result(s), please refer Unable to flag abnormal result(s), please refer to reference range(s) below: to reference range(s) below: Adult Reference Ranges for Aldosterone , LC/MS/MS: Adult Reference Ranges for Aldosterone , LC/MS/MS: Upright 8:00 - 10:00 am < or = 28 ng/dL Upright 8:00 - 10:00 am < or = 28 ng/dL Upright 4:00 - 6:00 pm < or = 21 ng/dL Upright 4:00 - 6:00 pm < or = 21 ng/dL Supine 8:00 - 10:00 am 3 - 16 ng/dL Supine 8:00 - 10:00 am 3 - 16 ng/dL This test was developed and its analytical performance characteris tics have been determined by [facility] [place]. It has not been cleared or approved by the U.S. Food and Drug Administrat ion. This assay has been validated pursuant to the CLIA regulations and is used for clinical purposes. Test Performed by [facility], [facility], [address] [place] [address] Tripp Crowder M.D., Ph.D., Director of Laboratorie s , CLIA [id number] TEST PERFORMED AT: , Ordering Provider: UNRULY MEJIA Report Released Date/Time: Dec 30, 2024 10:58 PM Reporting Lab: [facility] [address] [address] Performing Lab: [facility] [address] ALDOSTERO NE/PLASMA RENIN ACTIVITY RATIO RENIN [ENZYMATIC ACTIVITY/VO LUME] IN PLASMA 0.08 0.25 - 5.82 12/31 L Specimen Type: PLASMA Comment: Unable to flag abnormal result(s), please refer Unable to flag abnormal result(s), please refer to reference range(s) below: to reference range(s) below: Adult Reference Ranges for Aldosterone , LC/MS/MS: Adult Reference Ranges for Aldosterone , LC/MS/MS: Upright 8:00 - 10:00 am < or = 28 ng/dL Upright 8:00 - 10:00 am < or = 28 ng/dL Upright 4:00 - 6:00 pm < or = 21 ng/dL Upright 4:00 - 6:00 pm < or = 21 ng/dL Supine 8:00 - 10:00 am 3 - 16 ng/dL Supine 8:00 - 10:00 am 3 - 16 ng/dL This test was developed and its analytical performance characteris tics have been determined by [facility] [place]. It has not been cleared or approved by the U.S. Food and Drug Administrat ion. This assay has been validated pursuant to the CLIA regulations and is used for clinical purposes. Test Performed by [facility], [facility], [address] [place], [place] Tripp Crowder M.D., Ph.D., Director of Laboratorie s , CLIA [id number] TEST PERFORMED AT: , Ordering Provider: UNRULY MEJIA Report Released Date/Time: Dec 30, 2024 10:58 PM Reporting Lab: [facility] [address] [address] Performing Lab: [place] 25eight[facility] [[email or web address]] [facility] [address] [address] [facility] CARD.[facility]ST[facility] ALDOSTERO NE/PLASMA RENIN ACTIVITY RATIO ALDOSTERONE /RENIN [RATIO] IN PLASMA 50.0 {ratio } 0.9 - 28.9 12/31 H Specimen Type: PLASMA Comment: Unable to flag abnormal result(s), please refer Unable to flag abnormal result(s), please refer to reference range(s) below: to reference range(s) below: Adult Reference Ranges for Aldosterone , LC/MS/MS: Adult Reference Ranges for Aldosterone , LC/MS/MS: Upright 8:00 - 10:00 am < or = 28 ng/dL Upright 8:00 - 10:00 am < or = 28 ng/dL Upright 4:00 - 6:00 pm < or = 21 ng/dL Upright 4:00 - 6:00 pm < or = 21 ng/dL Supine 8:00 - 10:00 am 3 - 16 ng/dL Supine 8:00 - 10:00 am 3 - 16 ng/dL This test was developed and its analytical performance characteris tics have been determined by [place] It has not been cleared or approved by the U.S. Food and Drug Administrat ion. This assay has been validated pursuant to the CLIA regulations and is used for clinical purposes. Test Performed by [facility], [facility], [address] [place] [address] Tripp Crowder M.D., Ph.D., Director of Laboratorie s , CLIA [id number] TEST PERFORMED AT: , Ordering Provider: UNRULY MEJIA Report Released Date/Time: Dec 30, 2024 10:58 PM Reporting Lab: [facility]TRN [place] [facility] [address] [address] Performing Lab: [facility]CH[facility] [address] [place] [facility] CORTISOL (AM) CORTISOL [MASS/VOLUM E] IN SERUM OR PLASMA --AM PEAK SPECIMEN 3.83 ug/dL 6 - 28 12/31 L Specimen Type: SERUM No comment entered. Ordering Provider: UNRULY MEJIA Report Released Date/Time: Dec 30, 2024 10:58 PM Reporting Lab: [facility] [place] [facility] [address] [address] Performing Lab: [facility] [place] [facility] [address] [address] [facility] [place] MASSUSE [facility] TSH THYROTROPIN [UNITS/VOLU ME] IN SERUM OR PLASMA BY DETECTION LIMIT <= 0.005 MIU/L 1.21 u[IU]/ mL 0.35 - 4.94 12/31 Specimen Type: SERUM No comment entered. Ordering Provider: UNRULY MEJIA Report Released Date/Time: Dec 30, 2024 10:58 PM Reporting Lab: [facility] [place] [facility] [address] [address] Performing Lab: [facility] [facility] [address] [address] [facility] [place] [facility] OSMOLALIT Y (URINE) OSMOLALITY OF URINE 335 300 - 1000 12/17 Specimen Type: URINE No comment entered. Ordering Provider: UNRULY MEJIA Report Released Date/Time: Nov 10, 2024 09:46 PM Reporting Lab: [place] CN[place] [facility] [address] [address] Performing Lab: [place] [facility] [address] [address] [facility]ENTERRL WSTRN [place] [facility] OSMOLALIT Y (SERUM) OSMOLALITY OF SERUM OR PLASMA 297 280 - 300 12/17 Specimen Type: SERUM No comment entered. Ordering Provider: UNRULY MEJIA Report Released Date/Time: Nov 10, 2024 09:46 PM Reporting Lab: [facility]RL [facility]N [place] [facility] [address] [address] Performing Lab: [place] [facility] [address] [address] [facility]ENTERRL WSTRN [place] [facility] CALCIUM CALCIUM [MASS/VOLUM E] IN SERUM OR PLASMA 9.5 mg/dL 8.5 - 10.2 12/17 Specimen Type: SERUM No comment entered. Ordering Provider: UNRULY MEJIA Report Released Date/Time: Nov 10, 2024 09:46 PM Reporting Lab: [place] [facility] [address] [address] Performing Lab: [place] [facility] [address] [address] [facility]RL WSTRN [place] [facility] BASIC METABOLIC PANEL (non-fast ing) UREA NITROGEN [MASS/VOLUM E] IN SERUM OR PLASMA 19 mg/dL 7 - 25 12/17 Specimen Type: SERUM No comment entered. Ordering Provider: UNRULY MEJIA Report Released Date/Time: Nov 10, 2024 09:46 PM Reporting Lab: [place] [facility] [address] [address] Performing Lab: [place] [facility] [address] [address] [facility]RL WSTRN [place] [facility] BASIC METABOLIC PANEL (non-fast ing) GLUCOSE [MASS/VOLUM E] IN SERUM OR PLASMA 81 mg/dL 65 - 100 12/17 Specimen Type: SERUM No comment entered. Ordering Provider: UNRULY MEJIA Report Released Date/Time: Nov 10, 2024 09:46 PM Reporting Lab: [place] [facility] [address] [address] Performing Lab: [place] CN[facility] [facility] [address] [address] [place] CNTRL W[facility]N [facility] BASIC METABOLIC PANEL (non-fast ing) SODIUM [MOLES/VOLU ME] IN SERUM OR PLASMA 139 mmol/L 135 - 145 12/17 Specimen Type: SERUM No comment entered. Ordering Provider: UNRULY MEJIA Report Released Date/Time: Nov 10, 2024 09:46 PM Reporting Lab: [place] [facility] [address] [address] Performing Lab: [place] CN[place] [facility] [address] [address] [facility]ENTERRL WSTRN [facility] BASIC METABOLIC PANEL (non-fast ing) POTASSIUM [MOLES/VOLU ME] IN SERUM OR PLASMA 3.7 mmol/L 3.5 - 5.0 12/17 Specimen Type: SERUM No comment entered. Ordering Provider: UNRULY MEJIA Report Released Date/Time: Nov 10, 2024 09:46 PM Reporting Lab: [place] [facility] [facility] [address] [address] Performing Lab: [place] CN[facility]L [place] [address] [address] [place] CNTRL WSTRN [facility] BASIC METABOLIC PANEL (non-fast ing) CHLORIDE [MOLES/VOLU ME] IN SERUM OR PLASMA 106 mmol/L 100 - 110 12/17 Specimen Type: SERUM No comment entered. Ordering Provider: UNRULY MEJIA Report Released Date/Time: Nov 10, 2024 09:46 PM Reporting Lab: [place] [facility] [address] [address] Performing Lab: [place] CN[place] [facility] [address] [address] [facility] BASIC METABOLIC PANEL (non-fast ing) CARBON DIOXIDE, TOTAL [MOLES/VOLU ME] IN SERUM OR PLASMA 24 meq/L 20 - 30 12/17 Specimen Type: SERUM No comment entered. Ordering Provider: UNRULY MEJIA Report Released Date/Time: Nov 10, 2024 09:46 PM Reporting Lab: [address] [address] Performing Lab: [address] [address] [facility] BASIC METABOLIC PANEL (non-fast ing) CALCIUM [MASS/VOLUM E] IN SERUM OR PLASMA 9.5 mg/dL 8.5 - 10.2 12/17 Specimen Type: SERUM No comment entered. Ordering Provider: UNRULY MEJIA Report Released Date/Time: Nov 10, 2024 09:46 PM Reporting Lab: [address] [address] Performing Lab: [address] [address] [facility] BASIC METABOLIC PANEL (non-fast ing) CREATININE [MASS/VOLUM E] IN SERUM OR PLASMA 0.92 mg/dL 0.50 - 1.40 12/17 Specimen Type: SERUM No comment entered. Ordering Provider: UNRULY MEJIA Report Released Date/Time: Nov 10, 2024 09:46 PM Reporting Lab: [address] [address] Performing Lab: [address] [address] [facility] BASIC METABOLIC PANEL (non-fast ing) GLOMERULAR FILTRATION RATE/1.73 SQ M.PREDICTED [VOLUME RATE/AREA] IN SERUM, PLASMA OR BLOOD BY CREATININE- BASED FORMULA (CKD-EPI 2020) >90mL/ min 60 12/17 Specimen Type: SERUM No comment entered. Ordering Provider: UNRULY MEJIA Report Released Date/Time: Nov 10, 2024 09:46 PM Reporting Lab: [facility]ENTERRL TRN [place] [facility] [address] [address] Performing Lab: [place] [facility] [address] [address] [facility]ENTERRL WSTRN [place] [facility] LIPID PANEL FASTING CHOLESTEROL [MASS/VOLUM E] IN SERUM OR PLASMA 170 mg/dL 09/01 Specimen Type: SERUM No comment entered. Ordering Provider: AISHA GUERRERO Report Released Date/Time: Aug 28, 2024 06:44 PM Reporting Lab: [facility]ENTERRMARY [facility] CENTERTRN [facility] [address] [address] Performing Lab: [facility] CENTERRL [facility]ERN [facility] HOSPITALUSE[address] [address] [place] LIPID PANEL FASTING TRIGLYCERID E [MASS/VOLUM E] IN SERUM OR PLASMA 180 mg/dL 0 - 150 09/01 H Specimen Type: SERUM No comment entered. Ordering Provider: AISHA GUERRERO Report Released Date/Time: Aug 28, 2024 06:44 PM Reporting Lab: [facility]ENTERR[facility] CENTERTRN [facility] [address] [address] Performing Lab: [facility]ENTERRL TRN [facility]ITALUSE[address] [address] [place] LIPID PANEL FASTING CHOLESTEROL IN LDL [MASS/VOLUM E] IN SERUM OR PLASMA BY CALCULATION 89 mg/dL 0 - 129 09/01 Specimen Type: SERUM No comment entered. Ordering Provider: AISHA UGERRERO Report Released Date/Time: Aug 28, 2024 06:44 PM Reporting Lab: [facility]ENTERRMARY [facility] CENTERTRN [facility]ITALUS[facility] [address] [address] Performing Lab: [facility] CENTERRBRYAN WHIT[facility]OSPITALN [facility]OSPITALUSE[address] [address] [place] LIPID PANEL FASTING CHOLESTEROL .TOTAL/CHOL ESTEROL IN HDL [MASS RATIO] IN SERUM OR PLASMA 3.8 09/01 Specimen Type: SERUM No comment entered. Ordering Provider: AISHA GUERRERO Report Released Date/Time: Aug 28, 2024 06:44 PM Reporting Lab: [place] [facility] [place] [facility] [address] [address] Performing Lab: [place] [facility] [address] [address] [employer] [place] LIPID PANEL FASTING CHOLESTEROL IN HDL [MASS/VOLUM E] IN SERUM OR PLASMA 45 mg/dL 40 - 60 09/01 Specimen Type: SERUM No comment entered. Ordering Provider: AISHA GUERRERO Report Released Date/Time: Aug 28, 2024 06:44 PM Reporting Lab: [place] [facility] [address] [address] Performing Lab: [place] [facility] [address] [address] [employer] [place] LITHIUM LITHIUM [MOLES/VOLU ME] IN SERUM OR PLASMA 0.49 mmol/L 0.5 - 1.4 09/01 L Specimen Type: SERUM Comment: Patient states date/time of last dose was [id number], 1830Hrs, L Ordering Provider: AISHA GUERRERO Report Released Date/Time: Jul 31, 2024 04:43 PM Reporting Lab: [facility]ENTERRL [facility] [place] [facility] [address] [address] Performing Lab: [place] [facility] [address] [address] [employer] [place] Vital Signs Combined list of inpatient and outpatient Vital Signs from Department of Defense and Veterans Affairs, ranging from 12 months to all on record, depending upon the facility. Vital Sign Value Date Comments Source SYSTOLIC BLOOD PRESSURE 156 12/22/19 25 15:16:47 [facility] [place] [facility] DIASTOLIC BLOOD PRESSURE 115 025 15:16:47 [facility] [place] [facility] PULSE OXIMETRY 98 12/21/2024 15:16:47 [facility] [place] [facility] WEIGHT 235.1 12/21/2024 15:16:47 [facility] [place] [facility] BMI 32 kg/m2 12/21/2024 15:16:47 [facility] [place] [facility] PAIN 5 12/21/2024 15:16:47 [facility] [place] [facility] TEMPERATURE 98.4 12/21/2024 15:16:47 [facility] [place] [facility] PULSE 56 12/21/2024 15:16:47 [facility] [place] [facility] RESPIRATION 16 12/21/2024 15:16:47 [facility] [place] [facility] SYSTOLIC BLOOD PRESSURE 152 11/09/19 25 15:03:17 [facility] [place] [facility] DIASTOLIC BLOOD PRESSURE 84 025 15:03:17 [facility] [place] [facility] PULSE OXIMETRY 95 11/09/2024 15:03:17 [facility] [place] [facility] WEIGHT 240.8 11/09/2024 15:03:17 [facility] [place] [facility] BMI 33 kg/m2 11/09/2024 15:03:17 [facility] [place] [facility] PAIN 0 11/09/2024 15:03:17 [facility] [place] [facility] TEMPERATURE 98 11/09/2024 15:03:17 [facility] [place] [facility] PULSE 65 11/09/2024 15:03:17 [facility] [place] [facility] RESPIRATION 14 11/09/2024 15:03:17 [facility] [place] [facility] Encounters Combined list of: 1) Encounters from Department of Veterans Affairs facilities going backup to the last 18 months, not all VA inpatient encounters are included; 2) Encounters from the Department of Defense facilities going backup to 280 months. Location Location Details Encounter Type Encounter Number Reason For Visit Attending Provider ADM Date DC Date Status Disposition Source Shubham Shankar([facility] jc [facility] Flight Medicine) OUTPATIENT [id number] 25yr/pr oblem w/conse ntratio n,short attenti on span x6mos HETAL MOORE 05/01 Released w/o Limitations [facility] Medicin e) [facility] h[facility]ankar([facility] jc [facility] Flight Medicine) OUTPATIENT [id number] fu med concern s / stress med AHLTA SYSTEM ADMINISTRA TOR 07/31 [facility] Shankar([facility] 22nd STS Flight Medicin e) [facility] OUTPATIENT [id number] JESÚS ALDRIDGE 08/03 Released w/o Limitations [facility] Optometry ) OUTPATIENT [id number] AD EYE EXAM PAULETTEPATEL 08/07 Released w/o Limitations [facility] Optomet ry) [facility] Mental Health) OUTPATIENT [id number] JESÚS BONDS 08/22 Released w/o Limitations [facility]) [facility] Mental Health) OUTPATIENT [id number] JESÚS Aldridge 08/31 Released w/o Limitations [facility]) [facility] Mental Health) OUTPATIENT [id number] JESÚS ALDRIDGE 09/05 Released w/o Limitations [facility]) [facility] Mental Health) OUTPATIENT [id number] JESÚS BONDS 09/21 Released w/o Limitations [facility]) [facility] nd [facility] Flight Medicine) OUTPATIENT [id number] life skills f/u-nee ds med for anxiety HETAL MOORE 09/24 Released w/o Limitations [facility] 22nd STS Flight Medicin e) [facility] 22nd [facility] Flight Medicine) OUTPATIENT [id number] 25YO/L. KNEE.FLORENCIA IN.X5DY HETAL MOORE 12/11 Released w/o Limitations [facility] 22nd STS Flight Medicin e) [facility] Sh[facility] Mental Health) OUTPATIENT [id number] MARITAL INTAKE/ RESCHED ULED FROM 24 CAREY CAMPOS 12/14 Released w/o Limitations [facility]) [facility]ub[facility] Sh[facility] Mental [facility]) OUTPATIENT [id number] MARITAL CAREY MONTENEGRO 12/28 Released w/o Limitations Shub[facility] Sh[facility]) [facility]ub[facility]( [facility]) OUTPATIENT [id number] 30yo f/u NANDA Dela Cruz 01/08 Released w/o Limitations [facility]( [facility]) Shubham [facility] Shankar([facility]) OUTPATIENT [id number] sore throatx 3days FLORINDA BERNABE 01/25 Released w/o Limitations [facility]) [facility] [place] [facility]ank[facility]) TELE CONSULT [id number] [facility] intake appt JESÚS CHÁVEZ 02/25 [facility]ankar([facility] [place] [facility] [facility] OUT[facility] [id number] intake JESÚS CHÁVEZ 02/28 Released w/o Limitations [facility]ank[facility]) [facility] [place] [facility] Mental Health) OUTPATIENT [id number] JESÚS ALDRIDGE 03/20 Released w/o Limitations [facility]) [facility] [place] [facility]) OUTPATIENT [id number] depress ion ev per life skills QUINTEN Soto 03/26 Released w/o Limitations [facility] [place] [place] [facility] Family Medicin e) [facility] Shankar([facility] Mental Health[facility] OUTPATIENT [id number] JESÚS ALDRIDGE 03/27 Released w/o Limitations [facility]) [facility] [place] [facility] Mental Health) OUTPATIENT [id number] f/u JESÚS CHÁVEZ 04/03 Released w/o Limitations [facility]) [facility] [place] Mental Health) TELE CONSULT [id number] Cx appt JESÚS CHÁVEZ F 04/10 [facility]) [facility]([facility] Mental Health) OUTPATIENT [id number] resc from [id number] JESÚS CHÁVEZ 04/26 Released w/o Limitations [facility]) [facility]([facility] Mental Health) OUTPATIENT [id number] JESÚS CHÁVEZ 05/01 Released w/o Limitations [facility]) [facility] [place] Mental Health) OUTPATIENT [id number] marital intake ELY CONWAY 05/02 Released w/o Limitations [facility]) [facility] [place] Mental Health) OUTPATIENT [id number] FOL JESÚS CHÁVEZ 05/08 Released w/o Limitations [facility]) [facility] [place] Mental Health) OUTPATIENT [id number] f/u per provide ELY Valentine 05/08 Released w/o Limitations [facility]) [facility] [place] Mental Health) OUTPATIENT [id number] JESÚS CHÁVEZ 05/15 Released w/o Limitations [facility]) [facility] 22nd [facility] Family Medicine) OUTPATIENT [id number] DEPRESS ION X 9 MO QUINTEN CHUNG 05/23 Released w/o Limitations [facility] 22nd [facility] Family Medicin e) [facility] [place]([facility] Substance Abuse) OUTPATIENT [id number] self referra VILLA Sierra 05/27 Released w/o Limitations [facility] Substan ce Abuse) [facility] [place]([facility] Mental Health) OUTPATIENT [id number] GORDON slot added per Capt. JESÚS Peters 05/27 Released w/o Limitations [facility] [place] [place]) [facility] Substance Abuse) OUTPATIENT [id number] INTAKE f/u VILLA DELGADO 05/29 Released w/o Limitations [facility] [place] Substance Abuse) OUTPATIENT [id number] ORIENTA TION VILLA DELGADO 06/03 Released w/o Limitations [facility] Substance Abuse) OUTPATIENT [id number] TT VILLA DELGADO 06/03 Released w/o Limitations [facility]([facility] Mental Health) OUTPATIENT [id number] [facility] ELY CONWAY 06/10 Released w/o Limitations [facility]) [facility] Mental Health) OUTPATIENT [id number] JESÚS CHÁVEZ 06/12 Released w/o Limitations [facility]) [facility]([facility] Substance Abuse) OUTPATIENT [id number] VILLA Reilly 06/13 Released w/o Limitations [facility]([facility] Mental Health) OUTPATIENT [id number] ELY YANG 06/18 Released w/o Limitations [facility] [place] [place]) [facility]([facility] Mental Health) OUTPATIENT [id number] JESÚS CHÁVEZ 06/19 Released w/o Limitations [facility]) [facility]([facility] Substance Abuse) OUTPATIENT [id number] VILLA Reilly 06/20 Released w/o Limitations [facility] Substance Abuse) OUTPATIENT [id number] group VILLA DELGADO 06/27 Released w/o Limitations [facility]ord Substan ce Abuse) [facility] Substance Abuse) OUTPATIENT [id number] VILLA DELGADO 06/27 Released w/o Limitations [facility](M [facility]ord Substan ce Abuse) [facility] Mental Health) OUTPATIENT [id number] SPECIAL SLOT PER ELY MERRITT 06/28 Released w/o Limitations [facility] Mental Health) OUTPATIENT [id number] F/U JESÚS CHÁVEZ 07/01 Released w/o Limitations [facility]([facility] Substance Abuse) OUTPATIENT [id number] VILLA DELGADO 07/03 Released w/o Limitations [facility]) [facility]illy Shankar([facility] Substance Abuse) OUTPATIENT [id number] adapt group VILLA DELGADO 07/04 Released w/o Limitations [facility] OUTPATIENT [id number] DEPRESS ION SX XMOS HETAL MOORE 07/05 Released w/o Limitations [facility]) [facility]([facility] Mental Health) TELE CONSULT [id number] Cancell ation of today's couples appoint ment ELY CONWAY 07/12 [facility]) [facility]([facility] nd [facility] Flight [facility]) OUTPATIENT [id number] f/u depress ion HETAL MOORE 07/15 Released w/o Limitations [facility]) [facility] Mental Health) OUTPATIENT [id number] F/U JESÚS CHÁVEZ F 07/15 Released w/o Limitations [facility] [place]([facility] Substance Abuse) OUTPATIENT [id number] VILLA Reilly 07/17 Released w/o Limitations [facility](M [facility] Substan ce Abuse) [facility]([facility] Substance Abuse) OUTPATIENT [id number] VILLA Reilly 07/18 Released w/o Limitations [facility](M [facility]ord Substan ce Abuse) [facility]([facility] Substance Abuse) OUTPATIENT [id number] VILLA Villasenor 07/24 Released w/o Limitations [facility](M [facility] Substan ce Abuse) [facility]([facility] Substance Abuse) OUTPATIENT [id number] VILLA Reilly 07/31 Released w/o Limitations [facility](M [facility]ord Substan ce Abuse) [facility] Substance Abuse) OUTPATIENT [id number] VILLA DELGADO 08/01 Released w/o Limitations [facility] Substan ce Abuse) [facility] [place]([facility] Mental Health) OUTPATIENT [id number] follow up JESÚS CHÁVEZ 08/02 Released w/o Limitations [facility] [place]) [facility]([facility] Substance Abuse) OUTPATIENT [id number] VILLA Reilly 08/07 Released w/o Limitations [facility]) [facility] [place]([facility] Mental Health) TELE CONSULT [id number] [facility]- Pt. cx ELY CONWAY 08/13 [facility]([facility] Mental Health) OUTPATIENT [id number] follow up ELY CONWAY 08/13 Released with Work/Duty Limitations [facility]) [facility] [place]([facility] Substance Abuse) OUTPATIENT [id number] adapt ELY CONWAY 08/15 Released with Work/Duty Limitations [facility]) [facility] [id number] [facility] JESÚS CHÁVEZ F 08/20 Released w/o Limitations [facility]([facility] Substance Abuse) OUTPATIENT [id number] mood managem ent group VILLA DELGADO 08/23 Released w/o Limitations [facility]) [facility] OUTPATIENT [id number] follow up JESÚS CHÁVEZ F 08/27 Released w/o Limitations [facility]) [facility] Substance Abuse) OUTPATIENT [id number] VILLA REILLY 09/05 Released w/o Limitations [facility]) [facility]([facility] Substance Abuse) OUTPATIENT [id number] GROUP VILLA DELGADO 09/13 Released w/o Limitations [facility]) [facility] OUTPATIENT [id number] [place] [facility] follow up ELY CONWAY 09/17 Released w/o Limitations [facility] [place]([facility] Mental Health) OUTPATIENT [id number] follow up JESÚS CHÁVEZ 09/17 Released w/o Limitations [facility] [place]) [facility] [place]([facility] Substance Abuse) OUTPATIENT [id number] JANKI CORRIGAN 09/19 Released w/o Limitations [facility]) [facility]([facility] Mental Health) TELE CONSULT [id number] c-Pt. cancel JESÚS CHÁVEZ 09/23 [facility]) [facility]) OUTPATIENT [id number] F/U HETAL SILVA 10/02 Released w/o Limitations [facility]) [facility] Mental Health) OUTPATIENT [id number] [facility] 9JESÚS Licona 10/02 Released w/o Limitations [facility]) [facility] Mental Health) OUTPATIENT [id number] JESÚS SUTHERLAND F 10/22 Released w/o Limitations [facility]) [facility]) OUTPATIENT [id number] depress ion/x1m /person al; CHARANJIT SWAN 11/01 Released w/o Limitations [facility]) [facility] OUTPATIENT [id number] 26Y/AD/ PT SAYS IT PRIVATE XMOS. HETAL MOORE 11/29 Released w/o Limitations [facility]) [facility] Substance Abuse) OUTPATIENT [id number] arrive at 1300hrs JANKI CORRIGAN 12/04 Released w/o Limitations [facility] Substan ce Abuse) [facility] Mental Health) OUTPATIENT [id number] JESÚS Sutherland 12/05 Released w/o Limitations [facility]) [facility] Mental Health) OUTPATIENT [id number] f/u JESÚS CHÁVEZ 12/12 Released w/o Limitations [facility]) [facility]nar([facility] Substance Abuse) OUTPATIENT [id number] r/s initial evaluat ion (showti me 1200) VILLA DELGADO 12/23 Released w/o Limitations [facility] Substan ce Abuse) [facility]([facility] Mental Health) OUTPATIENT [id number] JESÚS Aldridge 12/30 Released w/o Limitations [facility]) [facility]([facility] Mental Health) OUTPATIENT [id number] JESÚS Sutherland 01/06 Released w/o Limitations [facility]) [facility]([facility] Substance Abuse) OUTPATIENT [id number] ULISSES MORIN 01/08 Released w/o Limitations [facility] Substan ce Abuse) [facility] Mental Health) TELE CONSULT [id number] No-Show JESÚS Haque 01/13 [facility]) [facility]([facility] Social Work) OUTPATIENT [id number] JESÚS MIRELES 01/13 Released w/o Limitations [facility] Social Work) [facility]([facility] Social Work) OUTPATIENT [id number] JESÚS MIRELES 01/13 Released w/o Limitations [facility] Social Work) [facility]([facility] Flight Medicine) OUTPATIENT [id number] on depress ion needs med refill PAGE STORY 01/15 Released w/o Limitations [facility] Flight Medicin e) [facility]([facility] Flight Medicine) OUTPATIENT [id number] poss.bi lat dewey splints x 1wk CHARANJIT SWAN 01/17 Released with Work/Duty Limitations [facility] Flight Medicin e) [facility] Mental Health) OUTPATIENT [id number] F/U JESÚS AMARO 01/23 Released w/o Limitations [facility]) [facility] Health) OUTPATIENT [id number] JESÚS Sutherland 01/31 Released w/o Limitations [facility]) [facility]([facility] Mental Health) OUTPATIENT [id number] DEPLOY ENT CLEARAN CE ELY CONWAY 02/13 Released with Work/Duty Limitations [facility]) [facility] Mental Health) OUTPATIENT [id number] walk in ELY CONWAY 02/14 Released w/o Limitations [facility]) [facility] Mental Health) OUTPATIENT [id number] f/u JESÚS CHÁVEZ 02/17 Released w/o Limitations [facility]) [facility]([facility] Mental Health) OUTPATIENT [id number] f/u JESÚS CHÁVEZ 03/10 Released w/o Limitations [facility]) [facility]([facility] Mental Health) OUTPATIENT [id number] JESÚS Sutherland 04/07 Released w/o Limitations [facility]) [facility]([facility] Substance Abuse) OUTPATIENT [id number] VILLA DELGADO 06/11 Released w/o Limitations [facility] Substan ce Abuse) [facility]([facility] Mental Health) TELE CONSULT [id number] [facility]- SHANNEN E ANHT ELY CONWAY 07/03 [facility]) [facility] OUTPATIENT [id number] f/u PAULINO MACARIO 07/04 Released w/o Limitations [facility](P sychiat ry Clinic) [facility] Mental Health) OUTPATIENT [id number] marital restart ELY CONWAY 07/11 Released w/o Limitations [facility]) [facility]([facility] Mental [facility]) TELE CONSULT [id number] Pt called to cnx couples appt ELY CONWAY 07/21 [facility]) [facility]([facility] Mental Health) TELE CONSULT [id number] facilit y cx ELY CONWAY 07/23 [facility]) [facility]([facility] Mental [facility]) TELE CONSULT [id number] pt cnx of today's couples f/u ELY CONWAY 08/05 [facility] gideon [facility]([facility] Mental [facility]) OUTPATIENT [id number] Case Termina tion ELY CONWAY 08/05 Released w/o Limitations [facility]) [facility]([facility] 22nd [facility] Family Medicine) OUTPATIENT [id number] NECK BHUAR7B Y QUINTEN CHUNG A 08/12 Released w/o Limitations [facility] 22nd [facility] Family Medicin e) [facility]ropra tic Clinic) OUTPATIENT [id number] CERVICA LGMITCH DIAZ 08/20 Released w/o Limitations [facility]( Chiropr actic Clinic) [facility]) OUTPATIENT [id number] MITCH ARMAS 09/01 Released w/o Limitations [facility]) [facility]) OUTPATIENT [id number] MITCH ARMAS 09/17 Released w/o Limitations [facility]( Chiropr actic Clinic) [facility] 22nd [facility] Flight Medicine) OUTPATIENT [id number] FU TOBACCO SESSATI ON/BALTA RGY MED TAWANA BUSH 09/23 Released w/o Limitations [facility] Flight Medicin e) [facility]([facility] Nutrition Clinic) OUTPATIENT [id number] Body Composi tion Improve ment Program #1 MATIAS BERRY 12/02 Released w/o Limitations [facility] Nutriti on Clinic) [facility]([facility] Nutrition Clinic) OUTPATIENT [id number] Body Composi tion Improve ment Program #2 MATIAS BERRY 12/09 Released w/o Limitations [facility] Nutriti on Clinic) [facility]([facility] Flight Medicine) OUTPATIENT [id number] F/U CHIN SPLINTS PAGE STORY 12/21 Released with Work/Duty Limitations [facility] Flight Medicin e) [facility]([facility] Flight Medicine) OUTPATIENT [id number] weight gain x3wks TAWANA BUSH 03/11 Released w/o Limitations [facility] Flight Medicin e) [facility]([facility] Nutrition [facility]) OUTPATIENT [id number] Body Composi tion Improve ment Program follow up MATIAS BERRY 04/15 Released w/o Limitations [facility] Nutriti on Clinic) [facility]([facility] Airman [facility]) OUTPATIENT [id number] insomni a x2days TAWANA BUSH 08/26 Released w/o Limitations [facility] Airman [facility]) [facility] [facility] [id number] BACK CONCERN S X4D THIAGO MCGINNIS V 10/19 Released w/o Limitations [facility] OUTPATIENT [id number] 62 CS PHA TAWANA BUSH 02/10 Released w/o Limitations [facility] OUTPATIENT [id number] Leg Pain MARLA HILL 01/10 Released with Work/Duty Limitations [facility] TELE CONSULT [id number] N/D since 0200 KOENIGDINORAH 01/17 [facility]erred for Appointment [facility]) [facility]) OUTPATIENT [id number] AF AILEEN GARZA 03/14 Released w/o Limitations [employer]) TELE CONSULT [id number] med JUAN ALBERTO Alonzo 03/14 [employer]) OUTPATIENT [id number] F/U Meds DISEESTHER, MASOUD R 03/31 Released w/o Limitations [employer]) OUTPATIENT [id number] f/u pain in both legs from running MASOUD UNGER R 05/26 Released with Work/Duty Limitations [employer]) OUTPATIENT [id number] fup leg pain-re sched ed from Jun MASOUD UNGER R 07/17 Released with Work/Duty Limitations [employer]) TELE CONSULT [id number] JULIEN Multani 07/31 [employer]) OUTPATIENT [id number] f/U dewey splits DISEESTHER, MASOUD R 08/31 Released w/o Limitations [employer]) TELE CONSULT [id number] referra l to podiatr y EMILJULIEN 09/01 [employer]) TELE CONSULT [id number] Patient broke leg on Saturday. Torsten ambrosio on Profile and how to get one JULIEN STEIN 12/13 [employer] [employer]([facility]) OUTPATIENT [id number] f/u ER visit ankle fx needs profile JOSEFINA UNGERAna Smith 12/21 Released with Work/Duty Limitations [employer]) TELE CONSULT [id number] follow up xray JULIEN STEIN 01/11 [employer]) OUTPATIENT [id number] ankle f/u MASOUD UNGER 02/07 Released with Work/Duty Limitations [employer]) OUTPATIENT [id number] Follow up Ankle injury JUAN ALBERTO BERNABE 03/23 Released w/o Limitations [employer]) OUTPATIENT [id number] AF PHA ADIMORA, QING E 04/13 Released w/o Limitations [employer]) TELE CONSULT [id number] xray results JULIEN STEIN 04/18 [employer]) TELE CONSULT [id number] f/u labs JULIEN STEIN 04/18 [employer]) OUTPATIENT [id number] F/U lipids OSCAR ORELLANA 05/17 Released with Work/Duty Limitations [employer] [employer]([facility]) OUTPATIENT [id number] Weight Managem ent grief counselor ALLISON Nicolas Lupe 05/17 Released w/o Limitations [employer]([facility]) [employer]([facility]) OUTPATIENT [id number] Back Pain OSCAR ORELLANA 05/23 Released w/o Limitations [employer] [employer]([facility]) TELE CONSULT [id number] f/u mri results JULIEN STEIN 07/03 [employer] [employer]([facility]) TELE CONSULT [id number] Diarrhe a and Vomitin g x 24 hours JULIEN STEIN 07/05 [employer] [employer]([facility]) TELE CONSULT [id number] Referra l Renewal -Physio ALFRED LEE 07/17 [employer] [employer]([facility]) OUTPATIENT [id number] Lt ankle pain (previo us MRI) OSCAR ORELLANA 07/30 Released w/o Limitations [employer] [employer]([facility]) OUTPATIENT [id number] Back Pain OSCAR ORELLANA 08/24 Released with Work/Duty Limitations [employer] [employer]([facility]) OUTPATIENT [id number] [employer] Chief mireya EASTON ALLISON Lupe 08/31 Released w/o Limitations [employer]([facility]) [employer]([facility]) OUTPATIENT [id number] Follow up Ankle pain OSCAR ORELLANA 10/05 Released w/o Limitations [employer] [employer] OUTPATIENT [id number] ankle joint pain FELICITY MONTEMAYOR 10/19 Released w/o Limitations [employer] [facility] [employer]([facility]) OUTPATIENT [id number] Med refill OSCAR ORELLANA 11/21 Released w/o Limitations [employer] [employer]([facility]) OUTPATIENT [id number] f/u lt ankle FELICITY MONTEMAYOR 11/29 Released w/o Limitations [employer]) TELE CONSULT [id number] Notes Entered by: HIRAL GUTIÉRREZ 13 Dec 2011 1004 ------- ------- ------- ------- -- Sore throat JULIEN STEIN 12/12 [employer]) TELE CONSULT [id number] Notes Entered by: JUVENAL AVILES 05 Feb 2012 0840 ------- ------- ------- ------- -- Diarrhe a for 3 hours. JULIEN STEIN 02/04 [employer]) OUTPATIENT [id number] Anxiety OSCAR ORELLANA 04/23 Released w/o Limitations [employer]) TELE CONSULT [id number] Notes Entered by: Luis ORELLANA 25 Apr 2012 1248 ------- ------- ------- ------- -- Follow up lab results KWAME DAVIDSON 04/25 [employer]) OUTPATIENT [id number] f/u lt ankle FELICITY MONTEMAYOR 05/21 Released w/o Limitations [employer]) TELE CONSULT [id number] Notes Entered by: JUVENAL AVILES 01 Jul 2012 1210 ------- ------- ------- ------- -- Chasing Profile for ankle pain CARLOS PATRICIA 07/01 [employer] [employer]([facility]) OUTPATIENT [id number] Discuss dosage of medicat ion OSCAR ORELLANA 07/09 Released w/o Limitations [employer] [employer]([facility]) OUTPATIENT [id number] Notes Entered by: Michael BOWMAN 26 Sep 2012 0951 ------- ------- ------- ------- -- ELMA MALDONADO 09/26 Released w/o Limitations [employer] [employer]([facility]) OUTPATIENT [id number] Linda deluna from OSCAR Eaton 10/24 Released w/o Limitations [employer] [employer] OUTPATIENT [id number] f/u lt FELICITY Grant 11/17 Released with Work/Duty Limitations [employer] [employer] OUTPATIENT [id number] f/u for l FELICITY Grant 12/15 Released w/o Limitations [employer] [employer] OUTPATIENT [id number] f/u lt FELICITY Grant 01/30 Released w/o Limitations [employer]) OUTPATIENT [id number] Change back to old meds OSCAR ORELLANA 02/02 Released w/o Limitations [employer]([facility]) [employer]([facility]) TELE CONSULT [id number] Notes Entered by: Luis ORELLANA 05 Feb 2013 1154 ------- ------- ------- ------- -- Lab testing request OSCAR ORELLANA 02/05 [employer]([facility]) [employer]([facility]) OUTPATIENT [id number] discuss having lab ordered cystic fibrosi s CAREY FOX 02/12 Released w/o Limitations [employer]([facility]) [employer]([facility]) OUTPATIENT [id number] EFMP CS Intervi ew R/S from 1530 RONEL TED Arreola 03/12 Released w/o Limitations [employer]([facility]) [employer]([facility]) OUTPATIENT [id number] Change of meds OSCAR ORELLANA 03/12 Released w/o Limitations [employer]([facility]) [employer]([facility] OUTPATIENT [id number] ALEX HERNANDEZ 05/13 Released w/o Limitations [employer] [employer]([facility]) OUTPATIENT [id number] Follow up on injured thumb OSCAR ORELLANA 05/26 Released w/o Limitations [employer]([facility]) [employer]([facility]) OUTPATIENT [id number] seperat ion physica l OSCAR ORELLANA 05/28 Released w/o Limitations [employer]([facility] Team [facility]) [facility] OFFICE O/P EST MOD 30-39 MIN [id number] Diagnos is: ICD-10- CM F31.9 Bipolar disorde r, unspeci ELKE Holder 08/01 [place] [facility] Outpatient Encounter [id number] 08/01 [facility] [place] [place] [facility] Outpatient Encounter [id number] ARSALAN MACIAS 08/01 [facility] En[facility] [id number] 08/05 [facility] [place] Outpatient Encounter [id number] Diagnos is: ICD-10- CM F31.9 Bipolar disorde r, unspeci ELKE Holder AN 08/05 [place] [facility] OFFICE O/P EST MOD 30-39 MIN [id number] Diagnos is: ICD-10- CM I10 Essenti al (primar y) hyperte nsion TYRA,CAR MEN F 08/12 [place] [facility] Encounter [id number] 09/04 [facility] En[facility] [id number] 09/04 [facility] Encounter [id number] 10/03 [facility] En[facility] [id number] 10/15 [facility] [place] OFFICE O/P EST MOD 30 MIN [id number] Diagnos is: ICD-10- CM F31.9 Bipolar disorde r, unspeci ELKE Holder AN 10/25 [place] [facility] En[facility] [id number] ISMAEL BRAUN 11/26 [facility] [place] OFFICE O/P EST MOD 30 MIN [id number] Diagnos is: ICD-10- CM F31.9 Bipolar disorde r, unspeci fied CESAR,ELKE AN 01/08 [place] [facility] [facility] Outpatient Encounter [id number] 02/05 [facility] [place] [place] [facility] EST MOD 30 MIN [id number] Diagnos is: ICD-10- CM F31.9 Bipolar disorde r, unspeci fied CESAR,ELKE AN 03/26 [facility] MOD 30 MIN [id number] Diagnos is: ICD-10- CM F31.9 Bipolar disorde r, unspeci fied CESARELKE AN 05/08 [facility] EST MOD 30 MIN [id number] Diagnos is: ICD-10- CM F31.9 Bipolar disorde r, unspeci fied CESAR,ELKE AN 07/31 [place] [facility] [place] [facility] QNHP OL DIG ASSMT&MGMT 08-05 [id number] 1. Diagnos is: ICD-10- CM F31.9 Bipolar disorde r, unspeci fied TERESAYOVANI 08/03 [facility] [place] [place] [facility] Outpatient Encounter [id number] ISMAEL BRAUN 08/03 [place] [facility] [place] [facility] OFF[facility] O/P EST MOD 30 MIN [id number] Diagnos is: ICD-10- CM F31.9 Bipolar disorde r, unspeci fied CESAR,ELKE AN 08/28 [place] [facility] [facility] Outpatient Encounter [id number] ELKE GUERRERO AN 10/23 [place] [facility] [place] [place] [facility] Outpatient Encounter [id number] 11/06 [place] [facility] [place] [facility] OFF/OP CONSLTJ NEW/EST HI 55 [id number] Diagnos is: ICD-10- CM 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 SHELLY MEJIAJAT A 11/09 [facility] FEE [id number] Diagnos is: ICD-10- CM 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 SHELLY MEJIAJAT A 11/09 [facility] OFFICE O/P EST MOD 30 MIN [id number] Diagnos is: ICD-10- CM F31.9 Bipolar disorde r, unspeci fied ELKE GUERRERO AN 11/27 [facility] [place] [facility] MIN [id number] Diagnos is: ICD-10- CM 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 SHELLY MEJIAJAT A 12/21 [facility] FEE [id number] Diagnos is: ICD-10- CM 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 Procedure Procedure Type Code Date Perfomer Comments Sourc e FOOT, ARCH SUPPORT, REMOVABLE, PREMOLDED, LONGITUDINAL, EACH 01/31/20 13 [facility] PSYCHOTHERAPY, 60 MINUTES WITH PATIENT 12/24/19 13 [facility] INDIVIDUAL PSYCHOTHERAPY, INSIGHT ORIENTED, BEHAVIOR MODIFYING AND/OR SUPPORTIVE, IN AN OFFICE OR OUTPATIENT FACILITY, APPROXIMATELY 45 TO 50 MINUTES NCYO-ZE-GIOT WITH THE PATIENT 11/29/19 13 [facility] INDIVIDUAL PSYCHOTHERAPY, INSIGHT ORIENTED, BEHAVIOR MODIFYING AND/OR SUPPORTIVE, IN AN OFFICE OR OUTPATIENT FACILITY, APPROXIMATELY 45 TO 50 MINUTES QWCB-HB-NSPQ WITH THE PATIENT 11/19/19 13 [facility] ANKLE CONTROL ORTHOSIS, STIRRUP STYLE, RIGID, INCLUDES ANY TYPE INTERFACE (E.G., PNEUMATIC, GEL), PREFABRICATED, WEL-TDD-BFTHK 10/28/19 13 [facility] INDIVIDUAL PSYCHOTHERAPY, INSIGHT ORIENTED, BEHAVIOR MODIFYING AND/OR SUPPORTIVE, IN AN OFFICE OR OUTPATIENT FACILITY, APPROXIMATELY 45 TO 50 MINUTES ABDC-IC-XRBU WITH THE PATIENT 10/13/19 13 [facility] SCREENING TEST OF VISUAL ACUITY, QUANTITATIVE, BILATERAL 09/26/19 13 [facility] INDIVIDUAL PSYCHOTHERAPY, INSIGHT ORIENTED, BEHAVIOR MODIFYING AND/OR SUPPORTIVE, IN AN OFFICE OR OUTPATIENT FACILITY, APPROXIMATELY 45 TO 50 MINUTES FLRY-NS-QMII WITH THE PATIENT 09/23/19 13 [facility] INDIVIDUAL PSYCHOTHERAPY, INSIGHT ORIENTED, BEHAVIOR MODIFYING AND/OR SUPPORTIVE, IN AN OFFICE OR OUTPATIENT FACILITY, APPROXIMATELY 45 TO 50 MINUTES DPXN-IP-CLNJ WITH THE PATIENT 08/29/20 12 [facility] INDIVIDUAL PSYCHOTHERAPY, INSIGHT ORIENTED, BEHAVIOR MODIFYING AND/OR SUPPORTIVE, IN AN OFFICE OR OUTPATIENT FACILITY, APPROXIMATELY 45 TO 50 MINUTES AUDW-EI-WDIU WITH THE PATIENT 08/12/20 12 [facility] INDIVIDUAL PSYCHOTHERAPY, INSIGHT ORIENTED, BEHAVIOR MODIFYING AND/OR SUPPORTIVE, IN AN OFFICE OR OUTPATIENT FACILITY, APPROXIMATELY 45 TO 50 MINUTES QUBT-PN-QSVE WITH THE PATIENT 07/18/20 12 [facility] OSTEOPATHIC MANIPULATIVE TREATMENT (OMT); 1-2 BODY REGIONS INVOLVED 07/09/20 12 [facility] INDIVIDUAL PSYCHOTHERAPY, INSIGHT ORIENTED, BEHAVIOR MODIFYING AND/OR SUPPORTIVE, IN AN OFFICE OR OUTPATIENT FACILITY, APPROXIMATELY 45 TO 50 MINUTES CGJI-UO-VODG WITH THE PATIENT 07/03/20 12 [facility] TELE ASSESS & MGT SRV PROV QUAL NONPHYS HLTH CARE PRO TO EST PAT,PARENT,GUARD NOT ORIG REL ASSESS & MGT SRV PROV W/IN PREV 7 DAYS NOR LEAD ASSESS & MGT SRV/PX W/IN NXT 24 HR/SOON APT;5-10 MIN MED DIS 07/01/20 12 [facility] INDIVIDUAL PSYCHOTHERAPY, INSIGHT ORIENTED, BEHAVIOR MODIFYING AND/OR SUPPORTIVE, IN AN OFFICE OR OUTPATIENT FACILITY, APPROXIMATELY 20 TO 30 MINUTES RQTH-DP-MQVJ WITH THE PATIENT 06/20/20 12 [facility] INDIVIDUAL PSYCHOTHERAPY, INSIGHT ORIENTED, BEHAVIOR MODIFYING AND/OR SUPPORTIVE, IN AN OFFICE OR OUTPATIENT FACILITY, APPROXIMATELY 45 TO 50 MINUTES NXIF-FA-VQYD WITH THE PATIENT 06/06/20 12 [facility] INDIVIDUAL PSYCHOTHERAPY, INSIGHT ORIENTED, BEHAVIOR MODIFYING AND/OR SUPPORTIVE, IN AN OFFICE OR OUTPATIENT FACILITY, APPROXIMATELY 45 TO 50 MINUTES ZJDL-LZ-EMVO WITH THE PATIENT 05/28/20 12 [facility] INDIVIDUAL PSYCHOTHERAPY, INSIGHT ORIENTED, BEHAVIOR MODIFYING AND/OR SUPPORTIVE, IN AN OFFICE OR OUTPATIENT FACILITY, APPROXIMATELY 45 TO 50 MINUTES TEJT-FB-OVVJ WITH THE PATIENT 05/05/20 12 [facility] INDIVIDUAL PSYCHOTHERAPY, INSIGHT ORIENTED, BEHAVIOR MODIFYING AND/OR SUPPORTIVE, IN AN OFFICE OR OUTPATIENT FACILITY, APPROXIMATELY 45 TO 50 MINUTES UNNT-IK-ZFPO WITH THE PATIENT 02/19/20 12 [facility] INDIVIDUAL PSYCHOTHERAPY, INSIGHT ORIENTED, BEHAVIOR MODIFYING AND/OR SUPPORTIVE, IN AN OFFICE OR OUTPATIENT FACILITY, APPROXIMATELY 45 TO 50 MINUTES ODVI-DU-ACBV WITH THE PATIENT 01/22/20 12 [facility] INDIVIDUAL PSYCHOTHERAPY, INSIGHT ORIENTED, BEHAVIOR MODIFYING AND/OR SUPPORTIVE, IN AN OFFICE OR OUTPATIENT FACILITY, APPROXIMATELY 45 TO 50 MINUTES BPSJ-IG-FIWC WITH THE PATIENT 01/08/20 12 [facility] INDIVIDUAL PSYCHOTHERAPY, INSIGHT ORIENTED, BEHAVIOR MODIFYING AND/OR SUPPORTIVE, IN AN OFFICE OR OUTPATIENT FACILITY, APPROXIMATELY 45 TO 50 MINUTES TAXH-ZV-ESLK WITH THE PATIENT 12/12/19 12 [facility] INDIVIDUAL PSYCHOTHERAPY, INSIGHT ORIENTED, BEHAVIOR MODIFYING AND/OR SUPPORTIVE, IN AN OFFICE OR OUTPATIENT FACILITY, APPROXIMATELY 45 TO 50 MINUTES BLYN-NF-PCUB WITH THE PATIENT 11/06/19 12 [facility] INDIVIDUAL PSYCHOTHERAPY, INSIGHT ORIENTED, BEHAVIOR MODIFYING AND/OR SUPPORTIVE, IN AN OFFICE OR OUTPATIENT FACILITY, APPROXIMATELY 45 TO 50 MINUTES BMVC-VM-GIBJ WITH THE PATIENT 10/23/19 12 [facility] ANKLE FOOT ORTHOSIS, MULTILIGAMENTOUS ANKLE SUPPORT, PREFABRICATED, UKB-AXR-IMGWS 10/19/19 12 [facility] INDIVIDUAL PSYCHOTHERAPY, INSIGHT ORIENTED, BEHAVIOR MODIFYING AND/OR SUPPORTIVE, IN AN OFFICE OR OUTPATIENT FACILITY, APPROXIMATELY 45 TO 50 MINUTES VWKG-TT-CTJS WITH THE PATIENT 09/03/20 11 [facility] PATIENT SCREENED FOR TOBACCO USE AND RECEIVED TOBACCO CESSATION INTERVENTION (COUNSELING, PHARMACOTHERAPY, OR BOTH), IF IDENTIFIED A TOBACCO USER (PV, CAD) 08/31/20 11 [facility] INDIVIDUAL PSYCHOTHERAPY, INSIGHT ORIENTED, BEHAVIOR MODIFYING AND/OR SUPPORTIVE, IN AN OFFICE OR OUTPATIENT FACILITY, APPROXIMATELY 45 TO 50 MINUTES KMHP-VB-SRPW WITH THE PATIENT 08/22/20 11 [facility] INDIVIDUAL PSYCHOTHERAPY, INSIGHT ORIENTED, BEHAVIOR MODIFYING AND/OR SUPPORTIVE, IN AN OFFICE OR OUTPATIENT FACILITY, APPROXIMATELY 45 TO 50 MINUTES PAYV-DL-VEAL WITH THE PATIENT 08/08/20 11 [facility] INDIVIDUAL PSYCHOTHERAPY, INSIGHT ORIENTED, BEHAVIOR MODIFYING AND/OR SUPPORTIVE, IN AN OFFICE OR OUTPATIENT FACILITY, APPROXIMATELY 45 TO 50 MINUTES EKRQ-QQ-SNEW WITH THE PATIENT 06/04/20 11 [facility] PSYCHIATRIC DIAGNOSTIC INTERVIEW EXAMINATION 05/22/20 11 [facility] MEDICAL NUTRITION THERAPY; INITIAL ASSESSMENT AND INTERVENTION, INDIVIDUAL, LQMN-EO-GDLG WITH THE PATIENT, EACH 15 MINUTES 05/17/20 11 [facility] SCREENING TEST OF VISUAL ACUITY, QUANTITATIVE, BILATERAL 04/13/20 11 [facility] WALKING BOOT,NON-PNEUMAT,W/W/O JOINTS,W/W/O INTERFACE MATERIAL,PREFABRICATED ITEM THAT HAS BEEN TRIMMED,BENT,MOLDED, SEMBLED,OR OTHERWISE CUSTOMIZED TO FIT A SPECIFIC PATIENT,AN INDIV W EXPERTISE 12/22/19 11 [facility] APPLICATION OF SHORT LEG CAST (BELOW KNEE TO TOES); WALKING OR AMBULATORY TYPE 12/12/19 11 [facility] INDIVIDUAL PSYCHOTHERAPY, INSIGHT ORIENTED, BEHAVIOR MODIFYING AND/OR SUPPORTIVE, IN AN OFFICE OR OUTPATIENT FACILITY, APPROXIMATELY 45 TO 50 MINUTES RLRL-SH-QPBF WITH THE PATIENT 04/18/20 10 [facility] PSYCHIATRIC DIAGNOSTIC INTERVIEW EXAMINATION 03/31/20 10 [facility] SCREENING TEST OF VISUAL ACUITY, QUANTITATIVE, BILATERAL 03/14/20 10 [facility] PSYCHIATRIC EVALUATION OF HOSPITAL RECORDS, OTHER PSYCHIATRIC REPORTS, PSYCHOMETRIC AND/OR PROJECTIVE TESTS, AND OTHER ACCUMULATED DATA FOR MEDICALDIAGNOSTIC PURPOSES 02/03/20 10 [facility] INDIVIDUAL PSYCHOTHERAPY, INSIGHT ORIENTED, BEHAVIOR MODIFYING AND/OR SUPPORTIVE, IN AN OFFICE OR OUTPATIENT FACILITY, APPROXIMATELY 45 TO 50 MINUTES JCGD-OP-WHFO W THE PATIENT; W MED EVAL & MGT SER 01/26/20 10 [facility] INDIVIDUAL PSYCHOTHERAPY, INSIGHT ORIENTED, BEHAVIOR MODIFYING AND/OR SUPPORTIVE, IN AN OFFICE OR OUTPATIENT FACILITY, APPROXIMATELY 45 TO 50 MINUTES WCHY-TF-XANT W THE PATIENT; W MED EVAL & MGT SER 12/09/19 10 [facility] INDIVIDUAL PSYCHOTHERAPY, INSIGHT ORIENTED, BEHAVIOR MODIFYING AND/OR SUPPORTIVE, IN AN OFFICE OR OUTPATIENT FACILITY, APPROXIMATELY 45 TO 50 MINUTES KQML-MI-OPRA WITH THE PATIENT 11/30/19 10 [facility] INDIVIDUAL PSYCHOTHERAPY, INSIGHT ORIENTED, BEHAVIOR MODIFYING AND/OR SUPPORTIVE, IN AN OFFICE OR OUTPATIENT FACILITY, APPROXIMATELY 45 TO 50 MINUTES HKRW-WQ-QQBL W THE PATIENT; [facility] EVAL & MGT SER 11/18/19 10 [facility] INDIVIDUAL PSYCHOTHERAPY, INSIGHT ORIENTED, BEHAVIOR MODIFYING AND/OR SUPPORTIVE, IN AN OFFICE OR OUTPATIENT FACILITY, APPROXIMATELY 45 TO 50 MINUTES XOSN-IR-BBHG W THE PATIENT; W [facility] EVAL & MGT SER 08/17/20 09 [facility] INDIVIDUAL PSYCHOTHERAPY, INSIGHT ORIENTED, BEHAVIOR MODIFYING AND/OR SUPPORTIVE, IN AN OFFICE OR OUTPATIENT FACILITY, APPROXIMATELY 75 TO 80 MINUTES MCSW-AL-KGFY WITH THE PATIENT 07/29/20 09 [facility] INDIVIDUAL PSYCHOTHERAPY, INSIGHT ORIENTED, BEHAVIOR MODIFYING AND/OR SUPPORTIVE, IN AN OFFICE OR OUTPATIENT FACILITY, APPROXIMATELY 45 TO 50 MINUTES DGXO-KN-GXDW W THE PATIENT; [place] [facility] EVAL & MGT SER 07/13/20 09 [facility] INDIVIDUAL PSYCHOTHERAPY, INSIGHT ORIENTED, BEHAVIOR MODIFYING AND/OR SUPPORTIVE, IN AN OFFICE OR OUTPATIENT FACILITY, APPROXIMATELY 45 TO 50 MINUTES [id number]-[id number] WITH THE PATIENT 06/22/20 09 [facility] PSYCHIATRIC EVALUATION OF HOSPITAL RECORDS, OTHER PSYCHIATRIC REPORTS, PSYCHOMETRIC AND/OR PROJECTIVE TESTS, AND OTHER ACCUMULATED DATA FOR MEDICALDIAGNOSTIC PURPOSES 06/21/20 09 [facility] INDIVIDUAL PSYCHOTHERAPY, INSIGHT ORIENTED, BEHAVIOR MODIFYING AND/OR SUPPORTIVE, IN AN OFFICE OR OUTPATIENT FACILITY, APPROXIMATELY 45 TO 50 MINUTES KIUC-[id number] W THE PATIENT; W [facility] EVAL & MGT SER 06/15/20 09 [facility] INDIVIDUAL PSYCHOTHERAPY, INSIGHT ORIENTED, BEHAVIOR MODIFYING AND/OR SUPPORTIVE, IN AN OFFICE OR OUTPATIENT FACILITY, APPROXIMATELY 45 TO 50 MINUTES YSCQ-ZI-CULO WITH THE PATIENT 06/08/20 09 [facility] ENVIRONMENTAL INTERVENTION FOR MEDICAL MGMT PURPOSES ON A PSYCHIATRIC PATIENT'S BEHALF WITH AGENCIES, EMPLOYERS, OR INSTITUTIONS 06/06/20 09 [facility] INDIVIDUAL PSYCHOTHERAPY, INSIGHT ORIENTED, BEHAVIOR MODIFYING AND/OR SUPPORTIVE, IN AN OFFICE OR OUTPATIENT FACILITY, APPROXIMATELY 45 TO 50 MINUTES TLGE-KC-[id number] W THE PATIENT; W [facility] EVAL & MGT SER 05/26/20 09 [facility] PSYCHIATRIC DIAGNOSTIC INTERVIEW EXAMINATION 05/18/20 09 [facility] INFLUENZA VIRUS VACCINE, TRIVALENT, LIVE (LAIV3), FOR INTRANASAL USE 07/09/20 08 [facility] MEDICAL NUTRITION THERAPY; RE-ASSESSMENT AND INTERVENTION, INDIVIDUAL, EBMG-UI-[id number] WITH THE PATIENT, EACH 15 MINUTES 04/15/20 08 [facility] INDIVIDUAL PSYCHOTHERAPY, INSIGHT ORIENTED, BEHAVIOR MODIFYING AND/OR SUPPORTIVE, IN AN OFFICE OR OUTPATIENT FACILITY, APPROXIMATELY 45 TO 50 MINUTES EWFJ-FM-FUHR W THE PATIENT; W MED EVAL & MGT SER 04/02/20 08 [facility] MEDICAL NUTRITION THERAPY; GROUP (2 OR MORE INDIVIDUAL(S)), EACH 30 MINUTES 12/10/19 08 [facility] MEDICAL NUTRITION THERAPY; GROUP (2 OR MORE INDIVIDUAL(S)), EACH 30 MINUTES 12/03/19 08 [facility] INDIVIDUAL PSYCHOTHERAPY, INSIGHT ORIENTED, BEHAVIOR MODIFYING AND/OR SUPPORTIVE, IN AN OFFICE OR OUTPATIENT FACILITY, APPROXIMATELY 45 TO 50 MINUTES OBQP-XJ-[id number] W THE PATIENT; W MED EVAL & MGT SER 10/16/19 08 [facility] CHIROPRACTIC MANIPULATIVE TREATMENT (CMT); SPINAL, 3-4 REGIONS 09/17/19 08 [facility] CHIROPRACTIC MANIPULATIVE TREATMENT (CMT); SPINAL, 3-4 REGIONS 09/01/20 07 [facility] CHIROPRACTIC MANIPULATIVE TREATMENT (CMT); SPINAL, 3-4 REGIONS 08/20/20 07 [facility] PSYCHIATRIC EVALUATION OF HOSPITAL RECORDS, OTHER PSYCHIATRIC REPORTS, PSYCHOMETRIC AND/OR PROJECTIVE TESTS, AND OTHER ACCUMULATED DATA FOR MEDICALDIAGNOSTIC PURPOSES 08/05/20 07 [facility] FAMILY PSYCHOTHERAPY (CONJOINT PSYCHOTHERAPY) (WITH PATIENT PRESENT), 50 MINUTES 07/11/20 07 [facility] INDIVIDUAL PSYCHOTHERAPY, INSIGHT ORIENTED, BEHAVIOR MODIFYING AND/OR SUPPORTIVE, IN AN OFFICE OR OUTPATIENT FACILITY, APPROXIMATELY 45 TO 50 MINUTES UPAR-YO-GZOX W THE PATIENT; W MED EVAL & MGT SER 07/04/20 07 [facility] PSYCHIATRIC DIAGNOSTIC INTERVIEW EXAMINATION 06/11/20 07 [facility] INDIVIDUAL PSYCHOTHERAPY, INSIGHT ORIENTED, BEHAVIOR MODIFYING AND/OR SUPPORTIVE, IN AN OFFICE OR OUTPATIENT FACILITY, APPROXIMATELY 45 TO 50 MINUTES [id number]-FP-RVZT WITH THE PATIENT 04/07/20 07 [facility] PREPARATION OF REPORT OF PATIENT'S PSYCHIATRIC STATUS, HISTORY, TREATMENT, OR PROGRESS (OTHER THAN FOR LEGAL OR CONSULTATIVE PURPOSES) FOR OTHER INDIVIDUALS, AGENCIES, OR INSURANCE CARRIERS 03/12/20 07 [facility] INDIVIDUAL PSYCHOTHERAPY, INSIGHT ORIENTED, BEHAVIOR MODIFYING AND/OR SUPPORTIVE, IN AN OFFICE OR OUTPATIENT FACILITY, APPROXIMATELY 45 TO 50 MINUTES [id number]-[id number] WITH THE PATIENT 03/10/20 07 [facility] INDIVIDUAL PSYCHOTHERAPY, INSIGHT ORIENTED, BEHAVIOR MODIFYING AND/OR SUPPORTIVE, IN AN OFFICE OR OUTPATIENT FACILITY, APPROXIMATELY 45 TO 50 MINUTES [id number]-HQ-ZCGE W THE PATIENT; W MED EVAL & MGT SER 02/25/20 07 [facility] INDIVIDUAL PSYCHOTHERAPY, INSIGHT ORIENTED, BEHAVIOR MODIFYING AND/OR SUPPORTIVE, IN AN OFFICE OR OUTPATIENT FACILITY, APPROXIMATELY 45 TO 50 MINUTES YZYS-EI-XKCS WITH THE PATIENT 02/18/20 07 [facility] INDIVIDUAL PSYCHOTHERAPY, INSIGHT ORIENTED, BEHAVIOR MODIFYING AND/OR SUPPORTIVE, IN AN OFFICE OR OUTPATIENT FACILITY, APPROXIMATELY 45 TO 50 MINUTES HSIU-NZ-[id number] WITH THE PATIENT 02/15/20 07 [facility] PSYCHIATRIC EVALUATION OF HOSPITAL RECORDS, OTHER PSYCHIATRIC REPORTS, PSYCHOMETRIC AND/OR PROJECTIVE TESTS, AND OTHER ACCUMULATED DATA FOR MEDICALDIAGNOSTIC PURPOSES 02/14/20 07 [facility] INDIVIDUAL PSYCHOTHERAPY, INSIGHT ORIENTED, BEHAVIOR MODIFYING AND/OR SUPPORTIVE, IN AN OFFICE OR OUTPATIENT FACILITY, APPROXIMATELY 45 TO 50 MINUTES RBTK-EN-[id number] WITH THE PATIENT 02/01/20 07 [facility] PSYCHIATRIC DIAGNOSTIC INTERVIEW EXAMINATION 01/25/20 07 [facility] INDIVIDUAL PSYCHOTHERAPY, INSIGHT ORIENTED, BEHAVIOR MODIFYING AND/OR SUPPORTIVE, IN AN OFFICE OR OUTPATIENT FACILITY, APPROXIMATELY 45 TO 50 MINUTES EAMD-UE-KTNL WITH THE PATIENT 01/24/20 07 [facility] PSYCHIATRIC EVALUATION OF HOSPITAL RECORDS, OTHER PSYCHIATRIC REPORTS, PSYCHOMETRIC AND/OR PROJECTIVE TESTS, AND OTHER ACCUMULATED DATA FOR MEDICALDIAGNOSTIC PURPOSES 01/14/20 07 [facility] INDIVIDUAL PSYCHOTHERAPY, INSIGHT ORIENTED, BEHAVIOR MODIFYING AND/OR SUPPORTIVE, IN AN OFFICE OR OUTPATIENT FACILITY, APPROXIMATELY 45 TO 50 MINUTES LPUQ-XP-NWGQ WITH THE PATIENT 01/07/20 07 [facility] INDIVIDUAL PSYCHOTHERAPY, INSIGHT ORIENTED, BEHAVIOR MODIFYING AND/OR SUPPORTIVE, IN AN OFFICE OR OUTPATIENT FACILITY, APPROXIMATELY 45 TO 50 MINUTES [id number]-YG-[id number] WITH THE PATIENT 12/31/19 07 [facility] PSYCHIATRIC DIAGNOSTIC INTERVIEW EXAMINATION 12/24/19 07 [facility] PSYCHIATRIC EVALUATION OF HOSPITAL RECORDS, OTHER PSYCHIATRIC REPORTS, PSYCHOMETRIC AND/OR PROJECTIVE TESTS, AND OTHER ACCUMULATED DATA FOR MEDICALDIAGNOSTIC PURPOSES 12/13/19 07 [facility] INDIVIDUAL PSYCHOTHERAPY, INSIGHT ORIENTED, BEHAVIOR MODIFYING AND/OR SUPPORTIVE, IN AN OFFICE OR OUTPATIENT FACILITY, APPROXIMATELY 45 TO 50 MINUTES YJUP-SD-ULIE WITH THE PATIENT 10/22/19 07 [facility] INDIVIDUAL PSYCHOTHERAPY, INSIGHT ORIENTED, BEHAVIOR MODIFYING AND/OR SUPPORTIVE, IN AN OFFICE OR OUTPATIENT FACILITY, APPROXIMATELY 45 TO 50 MINUTES FXCF-UZ-XKKC WITH THE PATIENT 10/02/19 07 [facility] ENVIRONMENTAL INTERVENTION FOR MEDICAL MGMT PURPOSES ON A PSYCHIATRIC PATIENT'S BEHALF WITH AGENCIES, EMPLOYERS, OR INSTITUTIONS 09/19/19 07 [facility] INDIVIDUAL PSYCHOTHERAPY, INSIGHT ORIENTED, BEHAVIOR MODIFYING AND/OR SUPPORTIVE, IN AN OFFICE OR OUTPATIENT FACILITY, APPROXIMATELY 45 TO 50 MINUTES SJQR-AQ-[id number] WITH THE PATIENT 09/17/19 [facility] FAMILY PSYCHOTHERAPY (CONJOINT PSYCHOTHERAPY) (WITH PATIENT PRESENT), 50 MINUTES 09/17/19 DoD GROUP PSYCHOTHERAPY (OTHER THAN OF A MULTIPLE-FAMILY GROUP) 09/12/20 DoD GROUP PSYCHOTHERAPY (OTHER THAN OF A MULTIPLE-FAMILY GROUP) 09/05/20 Do[facility] GROUP PSYCHOTHERAPY (OTHER THAN OF A MULTIPLE-FAMILY GROUP) 08/29/20 [facility] INDIVIDUAL PSYCHOTHERAPY, INSIGHT ORIENTED, BEHAVIOR MODIFYING AND/OR SUPPORTIVE, IN AN OFFICE OR OUTPATIENT FACILITY, APPROXIMATELY 20 TO 30 MINUTES AOUQ-CF-WWCI WITH THE PATIENT 08/27/20 [facility] GROUP PSYCHOTHERAPY (OTHER THAN OF A MULTIPLE-FAMILY GROUP) 08/21/20 [facility] INDIVIDUAL PSYCHOTHERAPY, INSIGHT ORIENTED, BEHAVIOR MODIFYING AND/OR SUPPORTIVE, IN AN OFFICE OR OUTPATIENT FACILITY, APPROXIMATELY 45 TO 50 MINUTES TMRC-RL-HHPV WITH THE PATIENT 08/20/20 [facility] GROUP PSYCHOTHERAPY (OTHER THAN OF A MULTIPLE-FAMILY GROUP) 08/15/20 Do[facility] GROUP PSYCHOTHERAPY (OTHER THAN OF A MULTIPLE-FAMILY GROUP) 08/14/20 [facility] FAMILY PSYCHOTHERAPY (CONJOINT PSYCHOTHERAPY) (WITH PATIENT PRESENT), 50 MINUTES 08/13/20 Do[facility] GROUP PSYCHOTHERAPY (OTHER THAN OF A MULTIPLE-FAMILY GROUP) 08/07/20 [facility] INTERACTIVE GROUP PSYCHOTHERAPY 08/01/20 [facility] INTERACTIVE GROUP PSYCHOTHERAPY 07/31/20 [facility] INDIVIDUAL PSYCHOTHERAPY, INSIGHT ORIENTED, BEHAVIOR MODIFYING AND/OR SUPPORTIVE, IN AN OFFICE OR OUTPATIENT FACILITY, APPROXIMATELY 20 TO 30 MINUTES EPNO-PS-IRDN WITH THE PATIENT 07/24/20 [facility] INTERACTIVE GROUP PSYCHOTHERAPY 07/18/20 [facility] INTERACTIVE GROUP PSYCHOTHERAPY 07/17/20 [facility] INDIVIDUAL PSYCHOTHERAPY, INSIGHT ORIENTED, BEHAVIOR MODIFYING AND/OR SUPPORTIVE, IN AN OFFICE OR OUTPATIENT FACILITY, APPROXIMATELY 45 TO 50 MINUTES DIMQ-CV-BJNR WITH THE PATIENT 07/15/20 [facility] GROUP PSYCHOTHERAPY (OTHER THAN OF A MULTIPLE-FAMILY GROUP) 07/11/20 [facility] INTERACTIVE GROUP PSYCHOTHERAPY 07/04/20 [facility] INTERACTIVE GROUP PSYCHOTHERAPY 07/03/20 [facility] INDIVIDUAL PSYCHOTHERAPY, INSIGHT ORIENTED, BEHAVIOR MODIFYING AND/OR SUPPORTIVE, IN AN OFFICE OR OUTPATIENT FACILITY, APPROXIMATELY 45 TO 50 MINUTES TAVC-TU-PHLQ WITH THE PATIENT 07/01/20 [facility] FAMILY PSYCHOTHERAPY (CONJOINT PSYCHOTHERAPY) (WITH PATIENT PRESENT), 50 MINUTES 06/28/20 DoD INTERACTIVE GROUP PSYCHOTHERAPY 06/27/20 [facility] INDIVIDUAL PSYCHOTHERAPY, INSIGHT ORIENTED, BEHAVIOR MODIFYING AND/OR SUPPORTIVE, IN AN OFFICE OR OUTPATIENT FACILITY, APPROXIMATELY 20 TO 30 MINUTES DOWC-UK-HFFI WITH THE PATIENT 06/26/20 Do[facility] INTERACTIVE GROUP PSYCHOTHERAPY 06/20/20 [facility] INDIVIDUAL PSYCHOTHERAPY, INSIGHT ORIENTED, BEHAVIOR MODIFYING AND/OR SUPPORTIVE, IN AN OFFICE OR OUTPATIENT FACILITY, APPROXIMATELY 45 TO 50 MINUTES XPKC-ZB-QWSV WITH THE PATIENT 06/19/20 [facility] FAMILY PSYCHOTHERAPY (CONJOINT PSYCHOTHERAPY) (WITH PATIENT PRESENT), 50 MINUTES 06/18/20 DoD INTERACTIVE GROUP PSYCHOTHERAPY 06/13/20 DoD INDIVIDUAL PSYCHOTHERAPY, INSIGHT ORIENTED, BEHAVIOR MODIFYING AND/OR SUPPORTIVE, IN AN OFFICE OR OUTPATIENT FACILITY, APPROXIMATELY 45 TO 50 MINUTES ZTHS-WF-[id number] WITH THE PATIENT 06/12/20 [facility] FAMILY PSYCHOTHERAPY (CONJOINT PSYCHOTHERAPY) (WITH PATIENT PRESENT), 50 MINUTES 06/10/20 DoD INTERACTIVE GROUP PSYCHOTHERAPY 06/06/20 [facility] ENVIRONMENTAL INTERVENTION FOR MEDICAL MGMT PURPOSES ON A PSYCHIATRIC PATIENT'S BEHALF WITH AGENCIES, EMPLOYERS, OR INSTITUTIONS 06/03/20 [facility] INDIVIDUAL PSYCHOTHERAPY, INSIGHT ORIENTED, BEHAVIOR MODIFYING AND/OR SUPPORTIVE, IN AN OFFICE OR OUTPATIENT FACILITY, APPROXIMATELY 20 TO 30 MINUTES EYXV-AN-PAKK WITH THE PATIENT 06/03/20 [facility] PSYCHIATRIC DIAGNOSTIC INTERVIEW EXAMINATION 05/29/20 [facility] FAMILY PSYCHOTHERAPY (CONJOINT PSYCHOTHERAPY) (WITH PATIENT PRESENT), 50 MINUTES 05/27/20 [facility] INDIVIDUAL PSYCHOTHERAPY, INSIGHT ORIENTED, BEHAVIOR MODIFYING AND/OR SUPPORTIVE, IN AN OFFICE OR OUTPATIENT FACILITY, APPROXIMATELY 20 TO 30 MINUTES LARY-GE-ZHMI WITH THE PATIENT 05/27/20 [facility] INDIVIDUAL PSYCHOTHERAPY, INSIGHT ORIENTED, BEHAVIOR MODIFYING AND/OR SUPPORTIVE, IN AN OFFICE OR OUTPATIENT FACILITY, APPROXIMATELY 45 TO 50 MINUTES OHQQ-IB-WVMX WITH THE PATIENT 05/15/20 [facility] FAMILY PSYCHOTHERAPY (CONJOINT PSYCHOTHERAPY) (WITH PATIENT PRESENT), 50 MINUTES 05/08/20 [facility] INDIVIDUAL PSYCHOTHERAPY, INSIGHT ORIENTED, BEHAVIOR MODIFYING AND/OR SUPPORTIVE, IN AN OFFICE OR OUTPATIENT FACILITY, APPROXIMATELY 45 TO 50 MINUTES KCRF-UU-MHHA WITH THE PATIENT 05/08/20 [facility] FAMILY PSYCHOTHERAPY (CONJOINT PSYCHOTHERAPY) (WITH PATIENT PRESENT), 50 MINUTES 05/02/20 [facility] INDIVIDUAL PSYCHOTHERAPY, INSIGHT ORIENTED, BEHAVIOR MODIFYING AND/OR SUPPORTIVE, IN AN OFFICE OR OUTPATIENT FACILITY, APPROXIMATELY 45 TO 50 MINUTES ZMIL-PY-[id number] WITH THE PATIENT 05/01/20 [facility] INDIVIDUAL PSYCHOTHERAPY, INSIGHT ORIENTED, BEHAVIOR MODIFYING AND/OR SUPPORTIVE, IN AN OFFICE OR OUTPATIENT FACILITY, APPROXIMATELY 45 TO 50 MINUTES SNTK-JM-SKSM WITH THE PATIENT 04/26/20 [facility] INDIVIDUAL PSYCHOTHERAPY, INSIGHT ORIENTED, BEHAVIOR MODIFYING AND/OR SUPPORTIVE, IN AN OFFICE OR OUTPATIENT FACILITY, APPROXIMATELY 45 TO 50 MINUTES BUWI-SR-DOZW WITH THE PATIENT 04/03/20 [facility] INDIVIDUAL PSYCHOTHERAPY, INSIGHT ORIENTED, BEHAVIOR MODIFYING AND/OR SUPPORTIVE, IN AN OFFICE OR OUTPATIENT FACILITY, APPROXIMATELY 45 TO 50 MINUTES HKTA-NE-LRVZ WITH THE PATIENT 03/27/20 [facility] INDIVIDUAL PSYCHOTHERAPY, INSIGHT ORIENTED, BEHAVIOR MODIFYING AND/OR SUPPORTIVE, IN AN OFFICE OR OUTPATIENT FACILITY, APPROXIMATELY 45 TO 50 MINUTES AVFP-KW-ZAZR WITH THE PATIENT 03/20/20 [facility] INDIVIDUAL PSYCHOTHERAPY, INSIGHT ORIENTED, BEHAVIOR MODIFYING AND/OR SUPPORTIVE, IN AN OFFICE OR OUTPATIENT FACILITY, APPROXIMATELY 45 TO 50 MINUTES VORK-MI-UQKA WITH THE PATIENT 02/29/20 DoD APPLICATION OF A MODALITY TO 1 OR MORE AREAS; TRACTION, MECHANICAL 01/09/20 DoD FAMILY PSYCHOTHERAPY (CONJOINT PSYCHOTHERAPY) (WITH PATIENT PRESENT), 50 MINUTES 12/29/19 DoD PSYCHIATRIC DIAGNOSTIC INTERVIEW EXAMINATION 12/15/19 [facility] OPHTHALMOLOGICAL SERVICES: MEDICAL EXAMINATION AND EVALUATION, WITH INITIATION OR CONTINUATION OF DIAGNOSTIC AND TREATMENT PROGRAM; INTERMEDIATE, ESTABLISHED PATIENT 12/13/19 [facility] APPLICATION OF A MODALITY TO 1 OR MORE AREAS; TRACTION, MECHANICAL 11/09/19 [facility] APPLICATION OF A MODALITY TO 1 OR MORE AREAS; TRACTION, MECHANICAL 10/05/19 [facility] INDIVIDUAL PSYCHOTHERAPY, INSIGHT ORIENTED, BEHAVIOR MODIFYING AND/OR SUPPORTIVE, IN AN OFFICE OR OUTPATIENT FACILITY, APPROXIMATELY 45 TO 50 MINUTES [id number]-TA-[id number] WITH THE PATIENT 09/21/19 [facility] MEDICAL NUTRITION THERAPY; GROUP (2 OR MORE INDIVIDUAL(S)), EACH 30 MINUTES 09/05/20 [facility] INDIVIDUAL PSYCHOTHERAPY, INSIGHT ORIENTED, BEHAVIOR MODIFYING AND/OR SUPPORTIVE, IN AN OFFICE OR OUTPATIENT FACILITY, APPROXIMATELY 45 TO 50 MINUTES ONQR-HZ-EXVG WITH THE PATIENT 09/05/20 [facility] INDIVIDUAL PSYCHOTHERAPY, INSIGHT ORIENTED, BEHAVIOR MODIFYING AND/OR SUPPORTIVE, IN AN OFFICE OR OUTPATIENT FACILITY, APPROXIMATELY 45 TO 50 MINUTES PABP-MK-FJRF WITH THE PATIENT 08/31/20 DoD APPLICATION OF A MODALITY TO 1 OR MORE AREAS; TRACTION, MECHANICAL 08/27/20 [facility] INDIVIDUAL PSYCHOTHERAPY, INSIGHT ORIENTED, BEHAVIOR MODIFYING AND/OR SUPPORTIVE, IN AN OFFICE OR OUTPATIENT FACILITY, APPROXIMATELY 45 TO 50 MINUTES SOWQ-BL-WAMH WITH THE PATIENT 08/22/20 05 [facility] APPLICATION OF A MODALITY TO 1 OR MORE AREAS; TRACTION, MECHANICAL 08/20/20 [facility] OPHTHALMOLOGICAL SERVICES: MEDICAL EXAMINATION AND EVALUATION WITH INITIATION OF DIAGNOSTIC AND TREATMENT PROGRAM; COMPREHENSIVE, NEW PATIENT, 1 OR MORE VISITS 08/07/20 [facility] INDIVIDUAL PSYCHOTHERAPY, INSIGHT ORIENTED, BEHAVIOR MODIFYING AND/OR SUPPORTIVE, IN AN OFFICE OR OUTPATIENT FACILITY, APPROXIMATELY 45 TO 50 MINUTES UHRO-BN-WOWO WITH THE PATIENT 07/24/20 [facility] INDIVIDUAL PSYCHOTHERAPY, INSIGHT ORIENTED, BEHAVIOR MODIFYING AND/OR SUPPORTIVE, IN AN OFFICE OR OUTPATIENT FACILITY, APPROXIMATELY 45 TO 50 MINUTES WEED-HE-VDYI WITH THE PATIENT 07/18/20 [facility] INDIVIDUAL PSYCHOTHERAPY, INSIGHT ORIENTED, BEHAVIOR MODIFYING AND/OR SUPPORTIVE, IN AN OFFICE OR OUTPATIENT FACILITY, APPROXIMATELY 45 TO 50 MINUTES ITYE-YO-SVVH WITH THE PATIENT 07/13/20 [facility] PSYCHIATRIC DIAGNOSTIC INTERVIEW EXAMINATION 07/05/20 [facility] POLYSOMNOGRAPHY; AGE 6 YEARS OR OLDER, SLEEP STAGING WITH 4 OR MORE ADDITIONAL PARAMETERS OF SLEEP, ATTENDED BY A TECHNOLOGIST 06/11/20 [facility] POLYSOMNOGRAPHY; AGE 6 YEARS OR OLDER, SLEEP STAGING WITH 4 OR MORE ADDITIONAL PARAMETERS OF SLEEP, ATTENDED BY A TECHNOLOGIST 06/05/20 [facility] OPHTHALMOLOGICAL SERVICES: MEDICAL EXAMINATION AND EVALUATION WITH INITIATION OF DIAGNOSTIC AND TREATMENT PROGRAM; INTERMEDIATE, NEW PATIENT 05/14/20 [facility] SCREENING TEST OF VISUAL ACUITY, QUANTITATIVE, BILATERAL 05/14/20 [facility] Psychiatric Therapy Group (Interactive) Psychiatric Therapy Group (Interactive) [id number] 07/17/20 06 VILLA DELGADO [facility] Psychiatric Therapy Individual Approximately 45-50 Minutes Psychiatric Therapy Individual Approximately 45-50 Minutes [id number] 07/15/20 06 JESÚS CHÁVEZ [facility] Psychiatric Therapy Group (Interactive) Psychiatric Therapy Group (Interactive) [id number] 07/04/20 06 VILLA DELGADO [facility] Psychiatric Therapy Group (Interactive) Psychiatric Therapy Group (Interactive) [id number] 07/03/20 06 VILLA DELGADO [facility] Psychiatric Therapy Individual Approximately 45-50 Minutes Psychiatric Therapy Individual Approximately 45-50 Minutes [id number] 07/01/20 06 JESÚS CHÁVEZ [facility] Clinical Social Work Counseling Marital 06/28/20 06 ELY CONWAY [facility] Psychiatric Therapy Individual Approximately 20-30 Minutes Psychiatric Therapy Individual Approximately 20-30 Minutes [id number] 06/27/20 06 VILLA DELGADO [facility] Psychiatric Therapy Group (Interactive) Psychiatric Therapy Group (Interactive) [id number] 06/27/20 06 DANNYVILLA EMMANUEL [facility] Psychiatric Therapy Group (Interactive) Psychiatric Therapy Group (Interactive) [id number] 06/21/20 06 DANNYVILLA EMMANUEL [facility] Psychiatric Therapy Individual Approximately 45-50 Minutes Psychiatric Therapy Individual Approximately 45-50 Minutes [id number] 06/19/20 06 JESÚS CHÁVEZ [facility] Clinical Social Work Counseling Marital 06/19/20 06 ELY CONWAY [facility] Psychiatric Therapy Group (Interactive) Psychiatric Therapy Group (Interactive) [id number] 06/13/20 06 DANNYVILLA EMMANUEL [facility] Psychiatric Therapy Individual Approximately 45-50 Minutes Psychiatric Therapy Individual Approximately 45-50 Minutes [id number] 06/12/20 06 JESÚS CHÁVEZ [facility] Clinical Social Work Counseling Marital 06/10/20 06 ELY CONWAY [facility] Psychiatric Therapy Environmental Intervention Psychiatric Therapy Environmental Intervention [id number] 06/03/20 06 DANNY VILLA Sudhir [facility] Psychiatric Therapy Individual Approximately 20-30 Minutes Psychiatric Therapy Individual Approximately 20-30 Minutes [id number] 06/03/20 06 DANNYVILLA [facility] Psychiatric Therapy Individual Approximately 20-30 Minutes Psychiatric Therapy Individual Approximately 20-30 Minutes [id number] 05/29/20 06 VILLA DELGADO [facility] Psychiatric Evaluation Comprehensive Examination Psychiatric Evaluation Comprehensive Examination [id number] 05/29/20 06 VILLA DELGADO [facility] Psychiatric Therapy Marital 05/27/20 06 JESÚS CHÁVEZ [facility] Psychiatric Therapy Individual Approximately 45-50 Minutes Psychiatric Therapy Individual Approximately 45-50 Minutes [id number] 05/15/20 06 JESÚS CHÁVEZ [facility] Psychiatric Therapy Individual Approximately 45-50 Minutes Psychiatric Therapy Individual Approximately 45-50 Minutes [id number] 05/08/20 06 JESÚS CHÁVEZ [facility] Clinical Social Work Counseling Family Conjoint 05/08/20 06 ELY CONWAY Clinical Social Work Counseling Marital 05/02/20 06 ELY CONWAY Psychiatric Therapy Individual Approximately 45-50 Minutes Psychiatric Therapy Individual Approximately 45-50 Minutes [id number] 05/01/20 06 JESÚS CHÁVEZ [facility] Psychiatric Therapy Individual Approximately 45-50 Minutes Psychiatric Therapy Individual Approximately 45-50 Minutes [id number] 04/26/20 06 KYLERJESÚS [facility] Psychiatric Therapy Individual Approximately 45-50 Minutes Psychiatric Therapy Individual Approximately 45-50 Minutes [id number] 04/03/20 06 KYLERJESÚS [facility] Psychiatric Therapy Individual Approximately 45-50 Minutes Psychiatric Therapy Individual Approximately 45-50 Minutes [id number] 03/27/20 06 KYLERJESÚS [facility] Psychiatric Therapy Individual Approximately 45-50 Minutes Psychiatric Therapy Individual Approximately 45-50 Minutes [id number] 03/20/20 06 KYLERJESÚS [facility] Psychiatric Therapy Individual Approximately 45-50 Minutes Psychiatric Therapy Individual Approximately 45-50 Minutes [id number] 02/29/20 06 KYLER JESÚS Quesada [facility] Modalities Cryotherapy Cold Packs Modalities Cryotherapy Cold Packs [id number] 01/09/20 06 NANDA RAYO [facility] Modalities Traction Modalities Traction [id number] 0 01/09/20 06 NANDA RAYO [facility] Chiropractic Manip Treatmt (CMT) Spinal Three To Four Region Chiropractic Manip Treatmt (CMT) Spinal Three To Four Region [id number] 01/09/20 06 NANDA RAYO [facility] Psychiatric Therapy Marital 12/29/19 06 CAREY CORRIGAN [facility] Psychiatric Evaluation Comprehensive Examination Psychiatric Evaluation Comprehensive Examination [id number] 12/15/19 06 CAREY CORRIGAN [facility] Psychiatric Therapy Individual Approximately 45-50 Minutes Psychiatric Therapy Individual Approximately 45-50 Minutes [id number] 09/21/19 06 KYLERJESSÚ [facility] Psychiatric Therapy Individual Approximately 45-50 Minutes Psychiatric Therapy Individual Approximately 45-50 Minutes [id number] 09/05/20 05 KYLER JESÚS Dipak [facility] Psychiatric Therapy Individual Approximately 45-50 Minutes Psychiatric Therapy Individual Approximately 45-50 Minutes [id number] 08/31/20 05 KYLER JESÚS Dipak [facility] Psychiatric Therapy Individual Approximately 45-50 Minutes Psychiatric Therapy Individual Approximately 45-50 Minutes [id number] 08/22/20 05 JESÚS CHÁVEZ [facility] Ophthalmological New Patient Start Comprehensive Care Ophthalmological New Patient Start Comprehensive Care [id number] 08/08/20 05 PATEL CALDWELL Determination Of Refractive State Determination Of Refractive State [id number] 08/08/20 05 PATEL CALDWELL [facility] [facility] Fitting Monofocals (Not For Aphakia) [facility] Fitting Monofocals (Not For Aphakia) [id number] 08/08/20 05 PATEL CALDWELL [facility] Foot, arch support, removable, premolded, longitudinal, each 01/31/20 13 FELICITY MONTEMAYOR [facility] Psychiatric Therapy Individual Approximately 45-50 Minutes Psychiatric Therapy Individual Approximately 45-50 Minutes [id number] 11/29/19 13 KATINA ALFONSO [facility] Psychiatric Therapy Individual Approximately 45-50 Minutes Psychiatric Therapy Individual Approximately 45-50 Minutes [id number] 11/19/19 13 KATINA ALFONSO [facility] Psychiatric Therapy Individual Approximately 45-50 Minutes Psychiatric Therapy Individual Approximately 45-50 Minutes [id number] 10/13/19 13 KATINA ALFONSO [facility] Screening Test Of Visual Acuity, Quantitative, Bilateral Screening Test Of Visual Acuity, Quantitative, Bilateral [id number] 09/26/19 13 ELMA ALDANA [facility] Psychiatric Therapy Individual Approximately 45-50 Minutes Psychiatric Therapy Individual Approximately 45-50 Minutes [id number] 09/23/19 13 KATINA ALFONSO [facility] Psychiatric Therapy Individual Approximately 45-50 Minutes Psychiatric Therapy Individual Approximately 45-50 Minutes [id number] 08/29/20 12 KATINA LAFONSO [facility] Psychiatric Therapy Individual Approximately 45-50 Minutes Psychiatric Therapy Individual Approximately 45-50 Minutes [id number] 08/12/20 12 KATINA ALFONSO [facility] Psychiatric Therapy Individual Approximately 45-50 Minutes Psychiatric Therapy Individual Approximately 45-50 Minutes [id number] 07/18/20 12 KATINA ALFONSO [facility] Osteopathic Manip Treatment (OMT) 1-2 Body Regions Involved Osteopathic Manip Treatment (OMT) 1-2 Body Regions Involved [id number] 07/09/20 12 OSCAR ORELLANA [facility] Psychiatric Therapy Individual Approximately 45-50 Minutes Psychiatric Therapy Individual Approximately 45-50 Minutes [id number] 07/03/20 12 KATINA ALFONSO [facility] Non-Physician Phone Call To Patient/Provider Brief (5-10min) Non-Physician Phone Call To Patient/Provider Brief (5-10min) [id number] 07/02/20 12 CARLOS PATRICIA [facility] Psychiatric Therapy Individual Approximately 20-30 Minutes Psychiatric Therapy Individual Approximately 20-30 Minutes [id number] 06/20/20 12 KATINA ALFONSO [facility] Psychiatric Therapy Individual Approximately 45-50 Minutes Psychiatric Therapy Individual Approximately 45-50 Minutes [id number] 06/06/20 12 KATINA ALFONSO [facility] Psychiatric Therapy Individual Approximately 45-50 Minutes Psychiatric Therapy Individual Approximately 45-50 Minutes [id number] 05/28/20 12 BARBIE GTZ [facility] Psychiatric Therapy Individual Approximately 45-50 Minutes Psychiatric Therapy Individual Approximately 45-50 Minutes [id number] 05/07/20 12 BARBIE GTZ [facility] Psychiatric Therapy Individual Approximately 45-50 Minutes Psychiatric Therapy Individual Approximately 45-50 Minutes [id number] 02/23/20 12 BARBIE TGZ [facility] Psychiatric Therapy Individual Approximately 45-50 Minutes Psychiatric Therapy Individual Approximately 45-50 Minutes [id number] 01/26/20 12 BARBIE GTZ [facility] Psychiatric Therapy Individual Approximately 45-50 Minutes Psychiatric Therapy Individual Approximately 45-50 Minutes [id number] 01/11/20 12 BARBIE GTZ [facility] Psychiatric Therapy Individual Approximately 45-50 Minutes Psychiatric Therapy Individual Approximately 45-50 Minutes [id number] 12/13/19 12 BARBIE GTZ [facility] Psychiatric Therapy Individual Approximately 45-50 Minutes Psychiatric Therapy Individual Approximately 45-50 Minutes [id number] 11/12/19 12 BARBIE GTZ [facility] Psychiatric Therapy Individual Approximately 45-50 Minutes Psychiatric Therapy Individual Approximately 45-50 Minutes [id number] 10/23/19 12 BARBIE GTZ [facility] Ankle foot orthosis, multiligamentous ankle support, prefabricated, [id number] 10/19/19 12 FELICITY MONTEMAYOR [facility] Psychiatric Therapy Individual Approximately 45-50 Minutes Psychiatric Therapy Individual Approximately 45-50 Minutes [id number] 09/05/20 11 BARBIE GTZ [facility] A e ment & Intervention Tobacco Use Screening With Ce ation Counseling 08/31/20 11 ALLISON EASTON [facility] Psychiatric Therapy Individual Approximately 45-50 Minutes Psychiatric Therapy Individual Approximately 45-50 Minutes [id number] 08/23/20 11 BARBIE GTZ [facility] Psychiatric Therapy Individual Approximately 45-50 Minutes Psychiatric Therapy Individual Approximately 45-50 Minutes [id number] 08/08/20 11 BARBIE GTZ [facility] Psychiatric Therapy Individual Approximately 45-50 Minutes Psychiatric Therapy Individual Approximately 45-50 Minutes [id number] 06/09/20 11 BARBIE GTZ [facility] Psychiatric Evaluation Comprehensive Examination Psychiatric Evaluation Comprehensive Examination [id number] 06/02/20 11 BARBIE GTZ [facility] Medical Nutrition Therapy Initial A e ment, Intervention Medical Nutrition Therapy Initial Assessment, Intervention [id number] 05/17/20 11 ALLISON EASTON Screening Test Of Visual Acuity, Quantitative, Bilateral Screening Test Of Visual Acuity, Quantitative, Bilateral [id number] 04/16/20 11 QING ALEXANDRE [facility] Walking boot, non-pneumatic, with or without joints, with or without interface material, prefabricated, includes fitting and adjustment 12/22/19 11 MASOUD UNGER [facility] Psychiatric Therapy Individual Approximately 45-50 Minutes Psychiatric Therapy Individual Approximately 45-50 Minutes [id number] 04/18/20 10 KATINA ALFONSO [facility] Psychiatric Evaluation Comprehensive Examination Psychiatric Evaluation Comprehensive Examination [id number] 04/03/20 10 KATINA ALFONSO [facility] Screening Test Of Visual Acuity, Quantitative, Bilateral Screening Test Of Visual Acuity, Quantitative, Bilateral [id number] 03/14/20 10 AILEEN HAMMOND [facility] Psychiatric Evaluation Review of Records and Reports Psychiatric Evaluation Review of Records and Reports [id number] 02/03/20 10 IZABELYOKO YOUNGNY L DoD Psychiat Therapy Indiv Appr 45-50 Min W/ Med Eval Managemt Psychiat Therapy Indiv Appr 45-50 Min W/ Med Eval Managemt [id number] 01/26/20 10 IZABELYOKONY L DoD Psychiat Therapy Indiv Appr 45-50 Min W/ Med Eval Managemt Psychiat Therapy Indiv Appr 45-50 Min W/ Med Eval Managemt [id number] 12/09/19 10 IZABELYOKONY L [facility] Psychiatric Therapy Individual Approximately 45-50 Minutes Psychiatric Therapy Individual Approximately 45-50 Minutes [id number] 11/30/19 10 VILLA DELGADO [facility] Psychiat Therapy Indiv Appr 45-50 Min W/ Med Eval Managemt Psychiat Therapy Indiv Appr 45-50 Min W/ Med Eval Managemt [id number] 11/18/19 10 YOKO PAIZNY L DoD Psychiat Therapy Indiv Appr 45-50 Min W/ Med Eval Managemt Psychiat Therapy Indiv Appr 45-50 Min W/ Med Eval Managemt [id number] 08/17/20 09 IZABELYOKONY L DoD Psychiatric Therapy Indiv By A Physician Approx 75-80 Min Psychiatric Therapy Indiv By A Physician Approx 75-80 Min [id number] 07/29/20 09 VILLA DELGADO [facility] Psychiat Therapy Indiv Appr 45-50 Min W/ Med Eval Managemt Psychiat Therapy Indiv Appr 45-50 Min W/ Med Eval Managemt [id number] 07/13/20 09 IZABELYOKO YOUNGNY L DoD Psychiatric Therapy Individual Approximately 45-50 Minutes Psychiatric Therapy Individual Approximately 45-50 Minutes [id number] 06/22/20 09 VILLA DELGADO [facility] Psychiatric Evaluation Review of Records and Reports Psychiatric Evaluation Review of Records and Reports [id number] 06/21/20 09 JUMA VINCENT [facility] Psychiat Therapy Indiv Appr 45-50 Min W/ Med Eval Managemt Psychiat Therapy Indiv Appr 45-50 Min W/ Med Eval Managemt [id number] 06/15/20 09 NORTH PAIZ [facility] Psychiatric Therapy Environmental Intervention Psychiatric Therapy Environmental Intervention [id number] 06/14/20 09 ASHA SKAGGS [facility] Psychiatric Therapy Individual Approximately 45-50 Minutes Psychiatric Therapy Individual Approximately 45-50 Minutes [id number] 06/08/20 09 VILLA DELGADO [facility] Psychiat Therapy Indiv Appr 45-50 Min W/ Med Eval Managemt Psychiat Therapy Indiv Appr 45-50 Min W/ Med Eval Managemt [id number] 05/26/20 09 NORTH PAIZ [facility] Psychiatric Evaluation Comprehensive Examination Psychiatric Evaluation Comprehensive Examination [id number] 05/18/20 09 NORTH PAIZ [facility] Medical Nutrition Therapy Re-a e ment, Intervention Medical Nutrition Therapy Re-assessment, Intervention [id number] 04/16/20 08 JAMALMATIAS F [facility] Psychiat Therapy Indiv Appr 45-50 Min W/ Med Eval Managemt Psychiat Therapy Indiv Appr 45-50 Min W/ Med Eval Managemt [id number] 04/02/20 08 PAULINO MACARIO [facility] Medical Nutrition Therapy Group (2 or More Individual(s)) Medical Nutrition Therapy Group (2 or More Individual(s)) [id number] 12/12/19 08 JAMAL, MATIAS F [facility] Medical Nutrition Therapy Group (2 or More Individual(s)) Medical Nutrition Therapy Group (2 or More Individual(s)) [id number] 12/05/19 08 JAMALALEXANDEROE F [facility] Psychiat Therapy Indiv Appr 45-50 Min W/ Med Eval Managemt Psychiat Therapy Indiv Appr 45-50 Min W/ Med Eval Managemt [id number] 10/16/19 08 PAULINO MACARIO [facility] Chiropractic Manip Treatmt (CMT) Spinal [facility] Chiropractic Manip Treatmt (CMT) Spinal [facility] [id number] 09/17/19 08 MITCH ARMAS [facility] Chiropractic Manip Treatmt (CMT) Spinal [facility] Chiropractic Manip Treatmt (CMT) Spinal [facility] [id number] 09/01/20 07 MITCH ARMAS [facility] Chiropractic Manip Treatmt (CMT) Spinal [facility] [place] [facility] Chiropractic Manip Treatmt (CMT) Spinal [facility] [place] [facility] [id number] 08/20/20 07 MITCH ARMAS Psychiatric Evaluation Review of Records and Reports Psychiatric Evaluation Review of Records and Reports [id number] 08/05/20 07 ELY CONWAY [facility] Clinical Social Work Counseling Marital 07/11/20 07 ELY CONWAY Psychiat Therapy Indiv Appr 45-50 Min W/ Med Eval Managemt Psychiat Therapy Indiv Appr 45-50 Min W/ Med Eval Managemt [id number] 07/04/20 07 PAULINO MACARIO [facility] Psychiatric Evaluation Comprehensive Examination Psychiatric Evaluation Comprehensive Examination [id number] 06/11/20 07 VILLA DELGADO [facility] Psychiatric Therapy Individual Approximately 45-50 Minutes Psychiatric Therapy Individual Approximately 45-50 Minutes [id number] 04/07/20 07 JESÚS CHÁVEZ [facility] Psychiatric Therapy Preparation of Psychiatric Status Report Psychiatric Therapy Preparation of Psychiatric Status Report [id number] 03/12/20 07 PAULINO MACARIO [facility] Psychiatric Evaluation Comprehensive Examination Psychiatric Evaluation Comprehensive Examination [id number] 03/12/20 07 PAULINO MACARIO [facility] Psychiatric Therapy Individual Approximately 45-50 Minutes Psychiatric Therapy Individual Approximately 45-50 Minutes [id number] 03/10/20 07 JESÚS CHÁVEZ Psychiat Therapy Indiv Appr 45-50 Min W/ Med Eval Managemt Psychiat Therapy Indiv Appr 45-50 Min W/ Med Eval Managemt [id number] 02/25/20 07 PAULINO MACARIO [facility] Psychiatric Therapy Individual Approximately 45-50 Minutes Psychiatric Therapy Individual Approximately 45-50 Minutes [id number] 02/18/20 07 JESÚS CHÁVEZ [facility] Social Work Individual Outpatient Counseling 45-50 Minutes Social Work Individual Outpatient Counseling 45-50 Minutes [id number] 02/15/20 07 ELY CONWAY [facility] Psychiatric Evaluation Review of Records and Reports Psychiatric Evaluation Review of Records and Reports [id number] 02/14/20 07 ELY CONWAY [facility] Psychiatric Therapy Individual Approximately 45-50 Minutes Psychiatric Therapy Individual Approximately 45-50 Minutes [id number] 02/01/20 07 KYLER JESÚS Dipak [facility] Psychiatric Evaluation Comprehensive Examination Psychiatric Evaluation Comprehensive Examination [id number] 01/26/20 07 LILIYA MACARIONY Luis [facility] Psychiatric Therapy Individual Approximately 45-50 Minutes Psychiatric Therapy Individual Approximately 45-50 Minutes [id number] 01/24/20 07 KYLER JESÚS Dipak [facility] Psychiatric Evaluation Review of Records and Reports Psychiatric Evaluation Review of Records and Reports [id number] 01/14/20 07 JESÚS CHÁVEZ [facility] Psychiatric Therapy Individual Approximately 45-50 Minutes Psychiatric Therapy Individual Approximately 45-50 Minutes [id number] 01/07/20 07 KYLER JESÚS Dipak [facility] Psychiatric Therapy Individual Approximately 45-50 Minutes Psychiatric Therapy Individual Approximately 45-50 Minutes [id number] 12/31/19 07 JESÚS CHÁVEZ [facility] Psychiatric Evaluation Comprehensive Examination Psychiatric Evaluation Comprehensive Examination [id number] 12/24/19 07 VILLA DELGADO [facility] Psychiatric Evaluation Review of Records and Reports Psychiatric Evaluation Review of Records and Reports [id number] 12/14/19 07 KYLER JESÚS Quesada [facility] Psychiatric Therapy Individual Approximately 45-50 Minutes Psychiatric Therapy Individual Approximately 45-50 Minutes [id number] 10/22/19 07 KYLER JESÚS Dipak [facility] Psychiatric Therapy Individual Approximately 45-50 Minutes Psychiatric Therapy Individual Approximately 45-50 Minutes [id number] 10/02/19 07 JESÚS CHÁVEZ [facility] Psychiatric Therapy Environmental Intervention Psychiatric Therapy Environmental Intervention [id number] 09/24/19 07 JANKI CORRIGAN [facility] Psychiatric Therapy Individual Approximately 45-50 Minutes Psychiatric Therapy Individual Approximately 45-50 Minutes [id number] 09/17/19 07 JESÚS CHÁVEZ [facility] Clinical Social Work Counseling Marital 09/17/19 07 ELY CONWAY [facility] Psychiatric Therapy Group (Interview) Psychiatric Therapy Group (Interview) [id number] 09/13/20 06 VILLA DELGADO [facility] Psychiatric Therapy Group (Interview) Psychiatric Therapy Group (Interview) [id number] 09/05/20 06 VILLA DELGADO [facility] Psychiatric Therapy Group (Interview) Psychiatric Therapy Group (Interview) [id number] 08/29/20 06 VILLA DELGADO [facility] Psychiatric Therapy Individual Approximately 20-30 Minutes Psychiatric Therapy Individual Approximately 20-30 Minutes [id number] 08/28/20 06 JESÚS CHÁVEZ [facility] Psychiatric Therapy Group (Interview) Psychiatric Therapy Group (Interview) [id number] 08/23/20 06 VILLA DELGADO [facility] Psychiatric Therapy Individual Approximately 45-50 Minutes Psychiatric Therapy Individual Approximately 45-50 Minutes [id number] 08/20/20 06 CHÁVEZ JESÚS Dipak [facility] Psychiatric Therapy Group (Interview) Psychiatric Therapy Group (Interview) [id number] 08/15/20 06 ELY CONWAY [facility] Psychiatric Therapy Group (Interview) Psychiatric Therapy Group (Interview) [id number] 08/14/20 06 ELY CONWAY [facility] Clinical Social Work Counseling Family Conjoint 08/14/20 06 ELY CONWAY [facility] Psychiatric Therapy Group (Interview) Psychiatric Therapy Group (Interview) [id number] 08/07/20 06 VILLA DELGADO [facility] Psychiatric Therapy Group (Interactive) Psychiatric Therapy Group (Interactive) [id number] 08/01/20 06 VILLA DELGADO [facility] Psychiatric Therapy Group (Interactive) Psychiatric Therapy Group (Interactive) [id number] 07/31/20 06 VILLA DELGADO [facility] Psychiatric Therapy Individual Approximately 20-30 Minutes Psychiatric Therapy Individual Approximately 20-30 Minutes [id number] 07/24/20 06 VILLA DELGADO [facility] Psychiatric Therapy Group (Interactive) Psychiatric Therapy Group (Interactive) [id number] 07/24/20 06 VILLA DELGADO [facility] Psychiatric Therapy Group (Interactive) Psychiatric Therapy Group (Interactive) [id number] 07/18/20 06 VILLA DELGADO [facility] Social History Combined list of available smoking, tobacco, and other social history from Department of Defense and Veterans Affairs facilities. Social History Type Response Date Comment Sourc e Tobacco smoking status [facility] VA-TOBACCO NEVER USED 07/05/2023 [facility] History of tobacco use VA-TOBACCO QUIT 5 TO < 15 YRS 06/12/2022 [place] History of tobacco use VA-TOBACCO FORMER USER 06/22/2021 [facility] History of tobacco use VA-TOBACCO FORMER USER 05/09/2020 [place] History of tobacco use QUIT TOBACCO USE 1-7 YEARS AGO 10/23/2018 [facility] History of tobacco use VA-TOBACCO FORMER USER 10/17/2018 [facility] History of tobacco use QUIT TOBACCO USE 1-7 YEARS AGO 07/01/2017 [facility] History of tobacco use QUIT TOBACCO USE 1-7 YEARS AGO 10/15/2016 [facility] History of tobacco use QUIT TOBACCO USE IN PAST YEAR 12/14/2015 [facility] History of tobacco use V1-PT READY TO QUIT TOBACCO USE 12/23/2014 [facility] History of tobacco use CURRENT SMOKER 01/20/2014 1/2 ppd [facility] This section is an empty social history section. [facility] Plan of Care List of future care activities from Department of Veterans Affairs facilities. Additional future care activities may be listed in the Assessment and Plan section. Date/Time Care Activity Care Activity Detail Facili ty 02/26/2025 AMBULATORY - PSYCHIATRY AMBULATORY - PSYC [facility]
--- OUTSIDE RECORDS SUMMARY | 2025-01-19 13:05 | XMS_ITS | Encounter Summary ---
Author Name [facility] Organization [facility] Address [address] [place] [id number] Care Team Providers Care Dyed Raw Stock Blower Feeder Name Role Phone SUZANNE PUENTES Primary Care Provider UnavailJOSHUA Hicks Primary Care Provider Unavail able Selected Encounter This section includes the information on record at [place] for the Encounter. 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 Date/Time Primary/Secondary Diagnosis Diagnosis Name Provider Source Nov 10, 2024 10:25 PM PRIMARY Nephrogenic diabetes insipidus SHELLY MEJIAJATA [facility] Nov 10, 2024 10:25 PM SECONDARY Essential (primary) hypertension DEMI MEJIATA [facility] Nov 10, 2024 10:25 PM SECONDARY Other polyuria SHELLY MEJIAJATA [facility] Nov 10, 2024 10:25 PM SECONDARY Polydipsia [facility] Plan of Treatment: Future Appointments (+ 6 months) and Future Tests (+/- 45 days) The Plan of Treatment section includes future care activities for the patient from all [facility] treatment[facility]. This section includes future appointments and future orders which are active, pending or scheduled. Future Appointments This section includes appointments that were scheduled to occur 6 months from the date of the Encounter, up to a maximum of 20 appointments. The data comes from all [facility]. Appointment Date/Time Appointment Type Appointme nt Facility Name Nov 27, 2024 03:30 PM AMBULATORY - PSYCHIATRY [facility] Dec 21, 2024 03:00 PM AMBULATORY - NONE [facility] Dec 21, 2024 03:00 PM [facility] Feb 26, 2025 03:00 PM AMBULATORY - PSYCHIATRY [facility] Mar 15, 2025 01:00 PM AMBULATORY - NONE [facility] Mar 15, 2025 01:00 PM AMBULATORY - MEDICINE [facility] Active, Pending, and Scheduled Orders This section includes a listing of several types of active, pending, and scheduled orders, including clinic medications orders, diagnostic test orders, procedure orders and consult orders; where the start date of the order is 45 days before the date of the Encounter or 45 days after the date of theEncounter. The data comes from all [facility]. Test Date/Time Test Type Test Details Facility Name Dec 17, 2024 12:00 AM Laboratory - Chemi stry Order SODIUM, 24 HR URINE 24 HOUR URINE 24 HR URINE [facility] Social History: Smoking Status (Most current) and Tobacco Use (All prior to encounter date) This section includes the most current, and the historical, smoking and tobacco- related health factors from the [place] facility where the Encounter took place. Current Smoking Status This section includes the most current smoking, or tobacco-related health factor, from the [place] facility where the Encounter took place. Date/Time Current Smoking Status Comment [facility] Jul 05, 2023 03:00 PM DC-TOBACCO NEVER USED [facility] Tobacco Use History This section includes a history of the smoking, or tobacco-related health factors, that were collected on or before the date of the Encounter. The data comes from the [place] facility where the Encounter took place. Date/Time Smoking Status/Tobacco Use Comment F acility Jun 12, 2022 09:00 AM DC-TOBACCO FORMER USER [facility] Jun 12, 2022 09:00 AM DC-TOBACCO QUIT 5 TO < 15 YRS [facility] May 09, 2020 09:30 AM VA-TOBACCO FORMER USER [facility] May 09, 2020 09:30 AM DC-TOBACCO QUIT 5 TO < 15 YRS [facility] Encounter Notes: All associated encounter notes This section contains the clinical notes associated to the Encounter. Date/Time Encounter Note(s) Provider Source Nov 09, 2024 03:52 PM NEPHROLOGY E & M N OTE: LOCAL TITLE: NEPHROLOGY NOTE STANDARD TITLE: NEPHROLOGY E & M NOTE DATE OF NOTE: NOV 09, 2024@15:52 ENTRY DATE: NOV 09, 2024@15:52:19 AUTHOR: UNRULY MEJIA COSIGNER: URGENCY: STATUS: COMPLETED Pt with hx of Biploar d/o who was on Sesser and had polyuria, was referred to the clinic by his psychiatrist Dr Ronald Bolaños, for mgmt of polyuria The telemedicine process was explained to the [facility] and they consented to a telenephrology visit. The was located in [facility] and I was in [place] during the encounter. ACTIVE PROBLEMS: Active problems - Computerized Problem List is the source for the followin. Hyperlipidemia ([facility] [id number]) 2. Vitamin D Deficiency ([facility] [id number]) 3. HTN - Hypertension ([facility] [id number]) 4. Pain in thoracic spine 5. Erectile Dysfunction ([facility] [id number]) 6. Secondary hypertension 7. Obesity 8. Sleep Apnea ([facility] [id number]) Home Sleep test 06/2020 9. Attention deficit hyperactivity disorder per chart review reviewed 10. Panic disorder reviewed 11. Bipolar disorder on lithium reviewed 12. Erectile dysfunction on sildenafil 13. Dyslipidaemia 05/2020 LDL 162 no pharm tx 14. Family history of diabetes mellitus type 2 Patient has a history of bipolar disorder. He stated that he had been on lithium since 2016. And he had developed frequent urination, 12 to 15 times per day, and also waking up at night to use the bathroom. He stated that he's on a new medication at this time and has stopped taking lithium since the past month. Although lithium worked well for him, the frequent urination was bothersome. However , despite of discontinuing lithium he continues to have frequent urination -Patient has a history of hypertension, that was diagnosed a couple years ago . Patient has been on metoprolol and his blood pressure are not well controlled. Patient does have a blood pressure cuff at home and stated that blood pressure remain on the higher side.. 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 He leaves home at seven in the morning and returns at 2:30 PM He occasionally drink tea in the morning, but does not like to drink any coffee I did discuss his diet with him, and he likes to add more salt to his food Normally eat two pieces of bread, occasional cheese and pickles and chips or Syriac food/soy sauce, does like to eat deli meat as well as canned soups He also stated that he mainly eats fruits and vegetables and meats He denies any edema on his extremities. He denied any other complaints. ROS: negative other than as stated above OUTPATIENT MEDICATIONS: Active Outpatient Medications (including Supplies): Active Outpatient Medications Status = 1) ARTIFICIAL SALIVA ORAL SPRAY 2 SPRAYS BY MOUTH EVERY 2 HOURS ACTIVE NEEDED FOR DRY MOUTH 2) BUPROPION HCL 300MG 24HR SA TAB TAKE ONE TABLET BY MOUTH ACTIVE EVERY MORNING Indication: FOR MOOD 3) LITHIUM CARBONATE 300MG SA TAB TAKE FIVE TABLETS BY MOUTH AT ACTIVE BEDTIME TO STABILIZE MOOD Indication: FOR BIPOLAR DISORDER 4) LUMATEPERONE 42MG ORAL CAP TAKE ONE CAPSULE BY MOUTH AT ACTIVE BEDTIME Indication: FOR BIPOLAR DEPRESSION 5) PROPRANOLOL HCL 10MG TAB TAKE ONE TABLET BY MOUTH TWICE ACTIVE DAILY FOR ANXIETY Active Non-VA Medications Status = 1) Non-VA DIPHENHYDRAMINE HCL 12.5MG/5ML ALC-F LIQ 1 ACTIVE TEASPOONFUL (5ML) BY MOUTH AT BEDTIME NEEDED 2) Non-VA MELATONIN CAP/TAB BY MOUTH AT BEDTIME NEEDED ACTIVE 7 Total Medications Allergies/ADR: Patient has answered NKA FHx: Heart disease and DMT2 run in the family Dad - hx of alcoholism Mom- Bipolar d/o SocHx Lives with his fiance and 2 children 3rd child visits on weekends No current hx of cigarette smoking, stopped in 2014 gave up alcohol in 2018 Uses marijuana - helps with muscle aches, migraines and anxiety VITAL SIGNS: Pulse: 65 (11/09/2024 15:03) B/P: 152/84 (11/09/2024 15:03) Temperature: 98 F [36.7 C] (11/09/2024 15:03) Weight: 240.8 lb [109.23 kg] (11/09/2024 15:03) Height: 72 in [182.9 cm] (06/12/2022 08:44) BMI: BMI: 32.7 Respiration: 14 (11/09/2024 15:03) PULSE OXEMETRY: POx 95% RA (11/09/2024 15:03) PHYSICAL EXAM: This was a telemedicine visit. The patient was alert and orientated to time, place and person. He was speaking fluently and was engaged in the meeting. He was well dressed and groomed with no signs of heart failure, fluid overload or uremia. 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 This can be treated using either HCTZ and/or amiloride, this combination is mainly used when pt is on Sesser and wishes to continue the same This will be also useful since patient has HTN For now - pt will get 24 hour urine volume, sodium, osmolaliy of both urine and serum, as well as BMP done - Urine volume will be used to define polyuria Pt will also maintain BP log, monitoring BP three times a day as demonstrated Diuretics will be introduced once BP log is evaluated # Recommendations for the patient as above I spent 60 minutes on this encounter that included a review of the patients active medication list, the recent lab results /es/ UNRULY MEJIA MD PHOTOVOLTAIC TESTING TECHNICIAN Signed: 11/10/2024 22:26 UNRULY MEJIA [facility]
--- OUTSIDE RECORDS SUMMARY | 2025-01-19 13:06 | XMS_ITS | Encounter Summary ---
Author Name [facility] [place] [facility] [place] [facility] [place] Address [address] [place] [address] Care Team Providers Care Mill Controller Name Role Phone SUZANNE PUENTES Primary Care Provider UnavailJOSHUA Hicks Primary Care Provider Unavail able Selected Encounter This section includes the information on record at [place] for the Encounter. Date/Time Encounter Type Encounter Description Reason Provider Source Nov 27, 2024 03:30 PM OFFICE O/P EST MOD 30 MIN [facility] - IND ICD-10-CM F31.9 Bipolar disorder, unspecified TELMA GUERRERO Encounter Template Text not used by [place] Assessments - Encounter Diagnoses This section includes the primary and secondary diagnoses documented for the Encounter. Date/Time Primary/Secondary Diagnosis Diagnosis Name Provider Source Nov 27, 2024 04:38 PM PRIMARY Bipolar disorder, unspecified TELMA GUERRERO LBAYNE Nov 27, 2024 04:38 PM SECONDARY Attention-deficit hyperactivity disorder, unspecified type TELMA GUERRERO Nov 27, 2024 04:38 PM SECONDARY Male erectile dysfunction, unspecified TELMA GUERRERO BLAYNE Nov 27, 2024 04:38 PM SECONDARY Panic disorder [episodic paroxysmal anxiety] TELMA GUERRERO Plan of Treatment: Future Appointments (+ 6 months) and Future Tests (+/- 45 days) The Plan of Treatment section includes future care activities for the patient from all [facility]. This section includes future appointments and future orders which are active, pending or scheduled. Future Appointments This section includes appointments that were scheduled to occur 6 months from the date of the Encounter, up to a maximum of 20 appointments. The data comes from all [facility]. Appointment Date/Time Appointment Type Appointme nt Facility Name Dec 21, 2024 03:00 PM AMBULATORY - NONE [facility] Dec 21, 2024 03:00 PM AMBULATORY - MEDICINE [facility] Feb 26, 2025 03:00 PM AMBULATORY - PSYCHIATRY [facility] Mar 15, 2025 01:00 PM AMBULATORY - NONE [facility] Mar 15, 2025 01:00 PM AMBULATORY - MEDICINE [facility] Active, Pending, and Scheduled Orders This section includes a listing of several types of active, pending, and scheduled orders, including clinic medications orders, diagnostic test orders, procedure orders and consult orders; where the start date of the order is 45 days before the date of the Encounter or 45 days after the date of theEncounter. The data comes from all [facility]. Test Date/Time Test Type Test Details Facility Name Dec 17, 2024 12:00 AM Laboratory - Chemistry Order SODIUM, 24 HR URINE 24 HOUR URINE 24 HR URINE [facility] Dec 31, 2024 08:00 AM Laboratory - Chemistry Order CORTISOL, FREE 24 HR URINE (q) 24 HOUR URINE 24 HR URINE [facility] Dec 31, 2024 08:00 AM Laboratory - Chemistry Order METANEPHRINES PANEL, 24HR URINE 24 HR URINE (25mL 6N HCL) [facility] Dec 31, 2024 08:00 AM Laboratory - Chemistry Order CATECHOLAMINES, FRAC, 24HR UR (QU) 24 HR URINE (25mL 6N HCL) [facility] Dec 31, 2024 03:11 PM Laboratory - Chemistry Order CATECHOLAMINES,FRAC,OLIVE SMA-QU BLOOD ([id number]) [facility] Lab Results: +/- 30 days of the encounter This section includes the Chemistry and Hematology Lab Results on record with [facility] for the patient. Radiology Reports and Pathology Reports are provided separately, in subsequent sections. Lab Results This section contains the Chemistry/Hematology Results that were resulted 30 days before or 30 daysafter the date of the Encounter. Date/Time Source Result Type Result - Unit Interpretation Reference Range Specimen Type Comment Dec [facility], [facility]24 02:[address] [facility] [place] [facility] OSMOLALITY (URINE) URINE Specimen Type: URINE No comment entered. Ordering Provider: UNRULY MEJIA Report Released Date/Time: Nov 10, 2024 09:46 PM Reporting [facility]: [facility] [place] [facility] [address] [address] Performing Lab: [facility] [place] [facility] [address] [facility] [address] OSMOLALITY (URINE) [phone] Dec 17, 2024 02:54 PM [facility] OSMOLALITY (SERUM) SERUM Specimen Type: SERUM No comment entered. Ordering Provider: UNRULY MEJIA Report Released Date/Time: Nov 10, 2024 09:46 PM Reporting Lab: [facility] [place] [facility] [address] [address] [facility]forming Lab[facility] [place] [facility] [address] [facility] [address] OSMOLALITY (SERUM) [phone] Dec 17, 2024 02:54 PM [facility] CALCIUM SERUM Specimen Type: SERUM No comment entered. Ordering Provider: UNRULY MEJIA Report Released Date/Time: Nov 10, 2024 09:46 PM Reporting [facility] [place] [facility] [address] [address] Performing Lab[facility] [place] [facility] [address] [address] CALCIUM 9.5 mg/dL 8.5-10.2 Dec 17, 2024 02:[address] [facility] BASIC METABOLIC PANEL (non-fasting) SERUM Spe cimen Type: SERUM No comment entered. Ordering Provider: UNRULY MEJIA Report Released Date/Time: Nov 10, 2024 09:46 PM Reporting [facility] [place] [facility] [address] [address] Performing Lab: [facility] [place] [facility] [address] [address] UREA NITROGEN 19 mg/dL 7-25 GLUCOSE 81 mg/dL 65-100 SODIUM 139 mmol/L 135-145 POTASSIUM 3.7 mmol/L 3.5-5.0 CHLORIDE 106 mmol/L 100-110 CO2 24 meq/L 20-30 CALCIUM 9.5 mg/dL 8.5-10.2 CREATININE, Serum 0.92 mg/dL 0.50-1.40 eGFR(CKD-EPI 2020) >90 mL/min >60 Social History: Smoking Status (Most current) and Tobacco Use (All prior to encounter date) This section includes the most current, and the historical, smoking and tobacco- related health factors from the [place] facility where the Encounter took place. Current Smoking Status This section includes the most current smoking, or tobacco-related health factor, from the [place] facility where the Encounter took place. Date/Time Current Smoking Status Comment Gely itreese Jul 05, 2023 03:00 PM VA-TOBACCO NEVER USED [facility] Tobacco Use History This section includes a history of the smoking, or tobacco-related health factors, that were collected on or before the date of the Encounter. The data comes from the [place] facility where the Encounter took place. Date/Time Smoking Status/Tobacco Use Comment F acility Jun 12, 2022 09:00 AM VA-TOBACCO FORMER USER [facility] Jun 12, 2022 09:00 AM [place]-TOBACCO QUIT 5 TO < 15 YRS [facility] May 09, 2020 09:30 AM VA-TOBACCO FORMER USER [facility] May 09, 2020 09:30 AM [place]-TOBACCO QUIT 5 TO < 15 YRS [facility] Encounter Notes: All associated encounter notes This section contains the clinical notes associated to the Encounter. Date/Time Encounter Note(s) Provider Source Nov 27, 2024 04:20 PM TELEHEALTH NOTE: LOCAL TITLE: [facility] VIDEO CONNECT PSYCHIATRIST NOTE STANDARD TITLE: TELEHEALTH NOTE DATE OF NOTE: NOV 27, 2024@16:20 ENTRY DATE: NOV 27, 2024@16:20:23 AUTHOR: TELMA GUERRERO EXP COSIGNER: URGENCY: STATUS: COMPLETED [facility] Video Connect (VVC) Standard Documentation VVC Clinician Resources Only: E911 (Emergency Call Relay Center): [phone] [facility] Crisis Line - 988 then press #1. HUNTER Suicide Coordinator [phone], Ext. [phone]; Back-up Ext. [phone] [place] Police, Dillan HARRISON [phone] Introduction: Visit is being conducted by [place] [employer] [facility]. [facility] identified with 2 identifiers: [X] Full Name [X] Date of [ ] VA ID Card Emergency Plan: [facility] confirmed and/or provided the following information in case of emergency or technology failure. PATIENT PHONE - PHONE NUMBER [CELLULAR] - Is patient phone number correct, if not, enter below: 's phone number: NATTY TORRE [address], [place], [address] 's present location and address for appointment: home 's emergency contact name and phone number: see cover reported that location is private and safe: Yes Informed Consent: informed of the risks and benefits of Telehealth video care. has the right to refuse video services. If refuses video visit, a [id number] visit will be scheduled. [employer] verbalized consent for this video visit: Yes provided consent for any other persons present for visit: N/A If yes, who and relationship to patient: Secure visit: Visit was locked for security and privacy:Yes Does this visit involve laterality/specific side of body? N/A Time spent: 21-30 minutes >16 mins supportive therapy (including empathic listening, insight building, and psychoeducation). The presents today for follow-up. PATIENT REPORT: is conversational. Mood is euthymnic. He denies symptoms of hypomania. reports normal sleep and energy. There is no irritability or pressured speech. He is taking Caplyta consistently and feels that it is helpful. self-discontinued lithium (after years of treatment with it) in September,. He feels that mood has been stable off lithium, likely due to mood stabilizing effects of Caplyta. He is happy that it does not cause drowsiness, but notes excessive xerostomia. We discussed strategies to address this side effects--he feels benefits outweigh side effects. DCF has been involved with his family for many months--there is another visit today--he feels it will go well. Again, there are no symptoms of hypomania--no irritability, pressured speech, racing thoughts, or grandiosity. Anxiety is manageable. Sleep is interrupted by having to wake up to urinate. 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 I encouraged PCP follow-up. requests that I renew sildenafil (previously prescribed by Dr. Goodman). As previously noted, he's uncertain to what extent propranolol may be helping. I discussed how it may be contributing to xerostomia. If he takes a drug holiday, he agrees to pay attention to symptoms and also BP (he has a wrist cuff). 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 He previosuly discussed encouragement he gets when thinking about Jose Race from wrestling. He's maintained his sobriety from alcohol. was cooperative with questions asked. Cognitive exam was grossly intact. TP was logical and organized. TC was pertinent to topic. Speech was of regular rate, rhythm, volume, and tone. Mood was euthymic. He denied SI and HI. Insight and judgment were intact. 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 He resides with / cody (?), Silvia, her 10-year-old son Rene, and their 2-year-old son, Samy. Rene has severe autism. Silvia has a 15-year-old son, Wojciech, who comes over for visitations. 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 SOCIAL HISTORY: [employer] FROM Mar TO May PSYCH MED HISTORY: bupropion (xerostomia) vortioxetine (GI upset) mirtazapine venlafaxine duloxetine paroxetine escitalopram Lamictal (didn't like the way it made him feel) Latuda (RLS) Vraylar (sexual side effects) quetiapine Abilify Rexulti lithium (several years, self-discontinued 10/10) SUBSTANCE USE: marijuana--daily, reports not to excess-- helpful for anxiety and irritability denies illicit substances no alcohol since 2018 ACTIVE OUTPATIENT MEDICATIONS (including Supplies): Active Outpatient Medications (including Supplies): ARTIFICIAL SALIVA ORAL SPRAY 2 SPRAYS BY MOUTH EVERY 2 ACTIVE (S) HOURS NEEDED FOR DRY MOUTH BUPROPION HCL 300MG 24HR SA TAB TAKE ONE TABLET BY MOUTH ACTIVE (S) EVERY MORNING Indication: FOR MOOD LUMATEPERONE 42MG ORAL CAP TAKE ONE CAPSULE BY MOUTH AT ACTIVE (S) BEDTIME Indication: FOR BIPOLAR DEPRESSION PROPRANOLOL HCL 10MG TAB TAKE ONE TABLET BY MOUTH TWICE ACTIVE (S) DAILY FOR ANXIETY SILDENAFIL CITRATE 100MG TAB TAKE ONE TABLET BY MOUTH ONCE ACTIVE (S) DAILY NEEDED TAKE 1 HOUR PRIOR TO SEXUAL ACTIVITY Indication: FOR ERECTILE DYSFUNCTION Non-VA DIPHENHYDRAMINE HCL 12.5MG/5ML ALC-F LIQ 1 ACTIVE TEASPOONFUL (5ML) BY MOUTH AT BEDTIME NEEDED Non-VA MELATONIN CAP/TAB BY MOUTH AT BEDTIME NEEDED ACTIVE 7 Total Medications ALLERGIES: Patient has answered NKA I discussed the findings and plan with the patient. I educated the patient about their mental health condition. Startex repeated back the plan and education. IMPRESSION (DSM-5): Primary: Bipolar Disorder Type II--currently euthymic Panic Disorder ADHD by history ASD? r/o Alcohol Use Disorder (in sustained full remission with last drink February 2019) r/o Cannabis Use Disorder--has medical card Tobacco Use Disorder, sustained full remission (last cigarette 2014) Secondary: ED PLAN: Continue bupropion XL 300mg QAM, a medication that has been traditionally helpful for mood/ ADHD. He is aware of potential risks/ side effects/ interactions. He is encouraged to use sugar-free gum and saliva spray as needed. He is aware of risk for hypomanic/manic switch, and has been educated on the signs and symptoms--he agrees to let me know immediately were this to happen. Risk is less likely as he's mood stabilized with Caplyta. Further, recent literature supports the use of antidepressants in Bipolar Disorder Type II. Continue Caplyta 42mg for Bipolar Disorder. He is benefiting. Startex self-discontinued lithium in September,--he feels stable off the medication (likely due to the Caplyta). I appreciate Nephrology consult note from 11/09/[address] Mejia. He has follow- up for nephrogenic DI. Will continue hydroxyzine 25mg tid PRN for anxiety and sleep for now--he does not feel it is particularly helpful. He takes rarely. No need for refill. Continue propranolol 10mg bid for anxiety--unclear how helpful this is, but may be benefiting BP. I encouraged again PCP follow-up regarding BP. He was prescribed eight Klonopin 1mg tabs PRN for anxiety at a previous visit-- he has not reiflled and is using responsibly. UDS reviewed from 10/13/21--he has a medical marijuana card. I encouraged him to cut back on marijuana. See previous note for details about conversaiton regarding side effects of Klonopin. UDS from 03/21/22 reviewed. No need for refill today--he is aware that his cannabis use poses a barrier. Continue PRN melatonin for sleep. He requests refill of sildenafil (previously prescribed by Dr. Goodman). Medication education provided. Congratulated him in his abstinence from alcohol. Offer support/ Relapse Prevention--not interested in formal treatment. Encourage him to use his CPAP nightly. I encouraged him to refrain from marijuana--he has a medical card and feels that he is using it in moderation. We discussed potential mental health side effects. He was previously offered individual therapy but declines. He was referred to couples therapy. The patient denied suicidal and violent ideation, but the suicide prevention information and hotline were reviewed with the patient. The patient also understands to call 911 or to go to ER in the event of an emergency. I completed a thorough risk assessment today, taking into consideration both the patient's risk factors andprotective factors. After careful consideration, it is my clinical opinion that juanita is probably at low-risk for harm to self and others. The rationale for the psychiatric medications and the alternatives to treatment were discussed with the patient. The side effect profile of the psychiatric medications was reviewed with the patient. This also included discussion of potential drug interactions with the psychiatric medication. Patient demonstrated reasonable understanding of the medication side effects and the above issues. The benefits of psychiatric medications outweigh risks for this patient. I asked the patient to call the clinic if the patientdoes not like the effect of psychiatric medication or if has side effectss with psychiatric medication. The benefits of treatment outweigh risks for thispatient. Follow-up with PCP for regular health maintenance. He reports he plans to request one at [place]. FOLLOW-UP: 12 weeks, sooner if needed Medication Reconciliation: Outpatient: Has the patient been taking medications as documented in the EMLR? YES: The patient has been taking medications as documented in the EMLR. Essential Medication List for Review used to complete this medication reconciliation. INCLUDED IN THIS LIST: Alphabetical list of active outpatient prescriptions dispensed from this [place] (local) and dispensed from another [place] or [facility] facility (remote) as well as inpatient orders (local, pending and active), local clinic medications, locally documented non-VA medications, and local prescriptions that have or been discontinued in the past 90 days. - All changes in medications, including all non-VA/Herbal/OTC medications were entered into CPRS. - If there were any medications the patient should no longer take, they were discontinued. - The patient/caregiver was instructed to update this list, discard old lists, and take this list to the next appointment, whether with a VA or non-VA provider. /akil/ TELMA GUERRERO DO Psychiatrist Signed: 11/27/2024 16:38 Receipt Acknowledged By: 11/30/2024 09:24 /akil/ MARTELL AYALA ADVANCED MINE ENGINEER 11/30/2024 07:10 /akil/ Michelle Youngblood ADVANCED MINE ENGINEER TELMA GUERRERO
--- OUTSIDE RECORDS SUMMARY | 2025-01-19 13:06 | XMS_ITS | Encounter Summary ---
Author Name [facility] [place] [facility] [place] [facility] [facility] [place] Address [address] [place] [address] Care Team Providers Care Fish Technologist Name Role Phone SUZANNE PUENTES Primary Care Provider UnavailJOSHUA Hicks Primary Care Provider Unavail able Selected Encounter This section includes the information on record at [place] for the Encounter. 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 Date/Time Primary/Secondary Diagnosis Diagnosis Name Provider Source Dec 24, 2024 01:10 PM PRIMARY Nephrogenic diabetes insipidus UNRULY MEJIA BLAYNE Dec 24, 2024 01:10 PM SECONDARY Essential (primary) hypertension UNRULY MEJIA BLAYNE Plan of Treatment: Future Appointments (+ 6 [...] 20 appointments. The data comes from all [facility]. Appointment Date/Time Appointment Type Appointme nt Facility Name Feb 26, 2025 03:00 PM AMBULATORY - PSYCHIATRY [facility] Mar 15, 2025 01:00 PM AMBULATORY - NONE [facility] Mar 15, 2025 01:00 PM AMBULATORY - MEDICINE [facility] Active, Pending, and Scheduled Orders This section includes a listing of several types of active, pending, and scheduled orders, including clinic medications orders, diagnostic test orders, procedure orders and consult orders; where the start date of the order is 45 days before the date of the Encounter or 45 days after the date of theEncounter. The data comes from all [facility]. Test Date/Time Test Type Test Details Facility Name Dec 17, 2024 12:00 AM Laboratory - Chemistry Order SODIUM, 24 HR URINE 24 HOUR URINE 24 HR URINE [facility] Dec 31, 2024 08:00 AM Laboratory - Chemistry Order CORTISOL, FREE 24 HR URINE (q) 24 HOUR URINE 24 HR URINE [facility] Dec 31, 2024 08:00 AM Laboratory - Chemistry Order METANEPHRINES PANEL, 24HR URINE 24 HR URINE (25mL 6N HCL) [facility] Dec 31, 2024 08:00 AM Laboratory - Chemistry Order CATECHOLAMINES, FRAC, 24HR UR (QU) 24 HR URINE (25mL 6N HCL) [facility] Dec 31, 2024 03:11 PM Laboratory - Chemistry Order CATECHOLAMINES,FRAC,OLIVE SMA-QU BLOOD ([id number]) [facility] Lab Results: +/- 30 days of [...] Interpretation Reference Range Specimen Type Comment Dec 31, 2024 03:13 PM [facility] METANEPHRINES, FRACTIONATED, PLASMA PLASMA Spe cimen Type: PLASMA Comment: REFERENCE RANGE: <=57 pg/mL This test was developed and its analytical performance characteristics have been determined by [facility] [place]. It has not been cleared or approved by the U.S. Food and Drug Administration. This assay has been validated pursuant to the CLIA regulations and is used for clinical purposes. REFERENCE RANGE: <=148 pg/mL This test was developed and its analytical performance characteristics have been determined by [facility] [place]. It has not been cleared or approved by the U.S. Food and Drug Administration. This assay has been validated pursuant to the CLIA regulations and is used for clinical purposes. REFERENCE RANGE: <=205 pg/mL For additional information, please refer to http://education. eGood. Wildfang/faq/MetFractF ree (This link is being provided for informational/edu catio informational/edu cational purposes only.) Elevations >4-fold upper reference range: strongly suggestive of a pheochromocytoma( 1). Elevations >1- 4-fold upper reference range: significant but not diagnostic, may be due to medications or stress. Suggest running 24 hr urine fractionated metanephrines and/or serum Chromagranin A for confirmation. Reference: (1)Efrain Andrade et al, Plasma Chromogranin A or Urine Fractionated Metanephrines Follow-Up Testing Improves the Diagnostic Accuracy of Plasma Fractionated Metanephrines for Pheochromocytoma. The Journal of Clinical Endocrinology # Metabolism 93(1), 91-95, 2008. This test was developed and its analytical performance characteristics have been determined by [place] It has not been cleared or approved by the U.S. Food and Drug Administration. This assay has been validated pursuant to the CLIA regulations and is used for clinical purposes. Test Performed by [facility], [place], [address] [facility], [place], [place] Tripp Crowder M.D., Ph.D., Director of Laboratories , CLIA [id number] TEST PERFORMED AT: , Ordering Provider: UNRULY MEJIA Report Released Date/Time: Dec 30, 2024 10:58 PM Reporting Lab: [facility] [address] [address] Performing Lab: [facility] [address] [address] Metanephrines,Free,Plasma 77 pg/mL H SEE B ELOW Normetanephrines,Free,Plasma 37 pg/mL SE E BELOW Total,Free([place]+Normeta) 114 pg/mL SEE B ELOW Dec 31, 2024 03:13 PM [facility] ALDOSTERONE/PLASMA RENIN ACTIVITY RATIO PLASMA Specimen Type: PLASMA Comment: Unable to flag abnormal result(s), please refer Unable to flag abnormal result(s), please refer to reference range(s) below: to reference range(s) below: Adult Reference Ranges for Aldosterone, LC/MS/MS: Adult Reference Ranges for Aldosterone, LC/MS/MS: Upright 8:00 - 10:00 am < [...] test was developed and its analytical performance characteristics have been determined by [facility] [place]. It has not been cleared or approved by the U.S. Food and Drug Administration. This assay has been validated pursuant to the CLIA regulations and is used for clinical purposes. Test Performed by [facility], [facility], [address] [place] [address] Tripp Crowder M.D., Ph.D., Director of Laboratories , CLIA [id number] TEST PERFORMED AT: , Ordering Provider: UNRULY MEJIA Report Released Date/Time: Dec 30, 2024 10:58 PM Reporting Lab: [facility] [address] [address] Performing Lab: [facility] [address] [address] ALDOSTERONE SUPINE,LC/MS/MS 4 ng/dL ALDOSTERONE UPRIGHT,LC/MS/MS 4 ng/dL RENIN ACTIVITY (PLASMA) 0.08 L 0.25-5.8 2 Aldosterone/Plasma Renin Activity 50.0 {ratio} H 0.9-28.9 Dec 31, 2024 03:13 PM [facility] CORTISOL (AM) SERUM Specimen Type: SERUM No comment entered. Ordering Provider: UNRULY MEJIA Report Released Date/Time: Dec 30, 2024 10:58 PM Reporting Lab: [place] [facility] [place] [facility] [address] [address] Performing Lab: [place] [facility] [place] [facility] [address] [facility] [address] CORTISOL (AM) 3.83 ug/dL L 6-28 Dec 31, 2024 03:13 PM [place] [facility] TSH SERUM Specimen Type: SERUM No comment entered. Ordering Provider: UNRULY MEJIA Report Released Date/Time: Dec 30, 2024 10:58 PM Reporting Lab: [place] [facility] [place] [facility] [address] [address] Performing Lab: [place] [facility] [place] [facility] [address] [address] TSH 1.21 u[IU]/mL 0.35-4.94 Dec 17, 2024 02:55 PM [place] [facility] [place] [facility] OSMOLALITY (URINE) URINE Specimen Type: URINE No comment entered. Ordering Provider: UNRULY MEJIA Report Released Date/Time: Nov 10, 2024 09:46 PM Reporting Lab: [place] [facility] [place] [facility] [address] [address] Performing Lab: [place] [facility] [address] [facility] [address] OSMOLALITY (URINE) [phone] Dec 17, 2024 02:54 PM [place] [facility] OSMOLALITY (SERUM) SERUM Specimen Type: SERUM No comment entered. Ordering Provider: UNRULY MEJIA Report Released Date/Time: Nov 10, 2024 09:46 PM Reporting Lab: [facility] [address] [address] Performing Lab: [facility] [address] [facility] [address] OSMOLALITY (SERUM) [phone] Dec 17, 2024 02:54 PM [facility] CALCIUM SERUM Specimen Type: SERUM No comment entered. Ordering Provider: UNRULY MEJIA Report Released Date/Time: Nov 10, 2024 09:46 PM Reporting Lab: [facility] [address] [address] Performing Lab: [facility] [address] [address] CALCIUM 9.5 mg/dL 8.5-10.2 Dec 17, 2024 02:54 PM [facility] BASIC METABOLIC PANEL (non-fasting) SERUM Spe cimen Type: SERUM No comment entered. Ordering Provider: UNRULY MEJIA Report Released Date/Time: Nov 10, 2024 09:46 PM Reporting Lab: [facility] [address] [address] Performing Lab: [facility] [address] [address] UREA NITROGEN 19 mg/dL 7-25 GLUCOSE 81 [...] and tobacco- related health factors from the [place] facility where the Encounter took place. Current Smoking Status This section includes the most current smoking, or tobacco-related health factor, from the [place] facility where the Encounter took place. Date/Time Current Smoking Status Comment Facil ity Jul 05, 2023 03:00 PM VA-TOBACCO NEVER USED [place] Tobacco Use History This section includes a history of the smoking, or tobacco-related health factors, that were collected on or before the date of the Encounter. The data comes from the [place] facility where the Encounter took place. Date/Time Smoking Status/Tobacco Use Comment F acility Jun 12, 2022 09:00 AM VA-TOBACCO FORMER USER [place] Jun 12, 2022 09:00 AM VA-TOBACCO QUIT 5 TO < 15 YRS [place] May 09, 2020 09:30 AM VA-TOBACCO FORMER USER [place] May 09, 2020 09:30 AM VA-TOBACCO QUIT 5 TO < 15 YRS [place] Encounter Notes: All associated encounter notes This section contains the clinical notes associated to the Encounter. Date/Time Encounter Note(s) Provider Source Dec 21, 2024 03:34 PM NEPHROLOGY E & M N OTE: LOCAL TITLE: NEPHROLOGY NOTE STANDARD TITLE: NEPHROLOGY E & M NOTE DATE OF NOTE: DEC 21, 2024@15:34 ENTRY DATE: DEC 21, 2024@15:34:44 AUTHOR: UNRULY MEJIA EXP COSIGNER: URGENCY: STATUS: COMPLETED NEPHROLOGY NOTE Has ADDENDA This was a f/u appt for the patient The telemedicine process was explained to the and they consented to a telenephrology visit. The was located in [facility] and I was in [place] during the encounter. ACTIVE PROBLEMS: Active problems - Computerized Problem List is the source for the followin. Hyperlipidemia ([facility] [id number]) 2. Vitamin D Deficiency ([facility] [id number]) 3. HTN - Hypertension ([facility] [id number]) 4. Pain in thoracic spine 5. Erectile Dysfunction ([facility] [id number]) 6. Secondary hypertension 7. Obesity 8. Sleep Apnea ([facility] [id number]) Home Sleep test 06/2020 9. Attention deficit hyperactivity disorder per chart review reviewed 10. Panic disorder reviewed 11. Bipolar disorder on lithium reviewed 12. Erectile dysfunction on sildenafil 13. Dyslipidaemia 05/2020 LDL 162 no pharm tx 14. Family history of diabetes mellitus type 2 Patient was seen in follow up . He has a history of bipolar disorder, was on lithium, had diabetes insipidus related to lithium use. So [place] was discontinued. And patient was started on Caplyta. He states he is doing well overall. He has modified his diet cut down on sugar and salt and also feels that his urine output has gone down. He does not have polyuria anymore. I had ordered some 24 hour urine tests that pt never got done, so unclear what his urine outpt is like. He wakes up only one or two times at night, compared to previous 5 to 6 times at night He's doing well overall, however, his blood pressures have been rather high. So he would be interested in getting started a blood pressure medication.. he does have a blood pressure cuff at home so he is willing to maintain a blood pressure log monitoring blood pressure three times a day, He's not entirely certain if the blood pressure cuff is working well He stated that there are variations in his blood pressure readings, when checked 5 to 10 minutes apart 190/70, P61, 134/81 P75, 184/92, P77 Not clear if it is an cuff related problem Pt denied any other complaints ROS: Negative other than as stated above OUTPATIENT MEDICATIONS: Active Outpatient Medications (including Supplies): Active Outpatient Medications Status = 1) ARTIFICIAL SALIVA ORAL SPRAY 2 SPRAYS BY MOUTH EVERY 2 HOURS ACTIVE NEEDED FOR DRY MOUTH 2) BUPROPION HCL 300MG 24HR SA TAB TAKE ONE TABLET BY MOUTH ACTIVE EVERY MORNING Indication: FOR MOOD 3) LUMATEPERONE 42MG ORAL CAP TAKE ONE CAPSULE BY MOUTH AT ACTIVE BEDTIME Indication: FOR BIPOLAR DEPRESSION 4) PROPRANOLOL HCL 10MG TAB TAKE ONE TABLET BY MOUTH TWICE ACTIVE DAILY FOR ANXIETY 5) SILDENAFIL CITRATE 100MG TAB TAKE ONE TABLET BY MOUTH ONCE ACTIVE DAILY NEEDED TAKE 1 HOUR PRIOR TO SEXUAL ACTIVITY Indication: FOR ERECTILE DYSFUNCTION Active Non-VA Medications Status = 1) Non-VA DIPHENHYDRAMINE HCL 12.5MG/5ML ALC-F LIQ 1 ACTIVE TEASPOONFUL (5ML) BY MOUTH AT BEDTIME NEEDED 2) Non-VA MELATONIN CAP/TAB BY MOUTH AT BEDTIME NEEDED ACTIVE 7 Total Medications Allergies/ADR: Patient has answered NKA VITAL SIGNS: Pulse: 56 (12/21/2024 15:26) B/P: 138/87 (12/21/2024 15:26) Temperature: 98.4 F [36.9 C] (12/21/2024 15:16) Weight: 235.1 lb [106.64 kg] (12/21/2024 15:16) Height: 72 in [182.9 cm] (06/12/2022 08:44) BMI: BMI: 32.0 Respiration: 16 (12/21/2024 15:16) PULSE OXEMETRY: POx 97% RA (12/21/2024 15:26) PHYSICAL EXAM: This was a telemedicine visit. The patient was alert and oriented to time, place and person. He spoke fluently and was engaged in the meeting. He was well dressed and groomed with no signs of heart failure, fluid overload or uremia. HEMOGLOBIN A1C TREND Collection DT Spec HGBA1c 07/09/2023 14:55 BLOOD 5.0 06/12/2022 09:42 BLOOD 4.9 06/13/2021 09:01 BLOOD 4.9 05/25/2020 09:45 BLOOD 5.4 DATE NA K HCO3 BUN/CR EGFR 12/17/24 143 3.7 24 19/0.92 >90 09/01/24 142 3.7 26 50/1.11 84 04/13/24 139 3.8 24 37/1.14 82 07/09/23 143 3.6 24 13/1.03 >90 06/12/22 139 4.0 24 12/0.83 >90 06/13/21 139 4.1 21 15/1.03 05/25/20 140 4.0 21 15/1.05 DATE sOsm Ur Osm 12/17/24 297 335 Assessment and Recommendations: 44 yo male with hx of bipolar d/o , who was on Li since 2016 and currently off it, with frequent urination and polydipsia to quench his thirst, 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.This defect can persist despite d/c of Li.Although his polyuria has improved, UOsm is still on the lower side This can be treated using either HCTZ and/or amiloride, this combination is mainly used when pt is on [place] and wishes to continue the same This will be also useful since patient has HTN Pt will also maintain BP log, monitoring BP three times a day as demonstrated Diuretics will be introduced once BP log is evaluated labs to det if secondary hypertension He is obese and trying to lose weight will get help from PCP to have pt started on wt loss medication # Recommendations for the patient please maintain BP log, will call you in a week to discuss BP values will order BP meds after that is done will order labs to r/o secondary causes of hypertension # Recommendations for the primary care team please help pt with calibration of hos BP cuff, not clear if its working well Please help pt get on wt loss meds I spent 45 minutes on this encounter that included a review of the patients active medication list, the recent lab results and interim /akil/ UNRULY MEJIA MD SHAPER MACHINE HAND Signed: 12/24/2024 13:13 Receipt Acknowledged By: * AWAITING SIGNATURE * JOSHUA SEGURA 12/29/2024 08:54 /akil/ TELMA GUERRERO DO Psychiatrist 12/29/2024 ADDENDUM STATUS: COMPLETED I appreciate Dr. Mejia's above note. I have reached out to the patient and encouraged him to schedule follow-up with PCP to discuss nephrology's recommendations. /sergio GUERRERO DO Psychiatrist Signed: 12/29/2024 08:55 Receipt Acknowledged By: * AWAITING SIGNATURE * LATIA MACIAS [place]
--- OUTSIDE RECORDS SUMMARY | 2025-01-19 13:06 | XMS_ITS | Encounter Summary ---
Author Name [facility] [place] [facility] [place] Address [address] [place] [id number] Care Team Providers Care Marble Machine Tender Name Role Phone SUZANNE PUENTES Primary Care Provider UnavailJOSHUA Hicks Primary Care Provider Unavail able Selected Encounter This section includes the information on record at [place] for the Encounter. 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 Date/Time Primary/Secondary Diagnosis Diagnosis Name Provider Source Nov 10, 2024 10:31 PM PRIMARY Nephrogenic diabetes insipidus ROBERTOUNRULY [facility] Nov 10, 2024 10:31 PM SECONDARY Essential (primary) hypertension SHELLY MEJIAJATA [facility] Nov 10, 2024 10:31 PM SECONDARY Other polyuria ROBERTOUNRULY [facility] Nov 10, 2024 10:31 PM SECONDARY Polydipsia UNRULY MEJIA [facility] Plan of Treatment: Future Appointments (+ 6 months) and Future Tests (+/- 45 days) The Plan of Treatment section includes future care activities for the [facility] This section includes future appointments and future orders which are active, pending or scheduled. Future Appointments This section includes appointments that were scheduled to occur 6 months from the date of the Encounter, up to a maximum of 20 appointments. The data comes from all [facility]. Appointment Date/Time Appointment Type Appointme nt Facility Name Nov 27, 2024 03:30 PM AMBULATORY - PSYCHIATRY [facility] Dec 21, 2024 03:00 PM AMBULATORY - NONE [facility] Dec 21, 2024 03:00 PM AMBULATORY - MEDICINE [facility] Feb 26, 2025 03:00 PM AMBULATORY - PSYCHIATRY [facility] Mar 15, 2025 01:00 PM AMBULATORY - NONE [facility] Mar 15, 2025 01:00 PM AMBULATORY - MEDICINE [facility] Active, Pending, and Scheduled Orders This section includes a listing of several types of active, pending, and scheduled orders, including clinic medications orders, diagnostic test orders, procedure orders and consult orders; where the start date of the order is 45 days before the date of the Encounter or 45 days after the date of theEncounter. The data comes from all [facility]. Test Date/Time Test Type Test Details Facility Name Dec 17, 2024 12:00 AM Laboratory - Chemi stry Order SODIUM, 24 HR URINE 24 HOUR URINE 24 HR URINE [facility] Encounter Notes: All associated encounter notes This section contains the clinical notes associated to the Encounter. Date/Time Encounter Note(s) Provider Source Nov 09, 2024 03:53 PM NEPHROLOGY OUTPATI ENT CONSULT: LOCAL TITLE: RENAL ATTENDING OUTPATIENT INITIAL CONSULT NOTE STANDARD TITLE: NEPHROLOGY OUTPATIENT CONSULT DATE OF NOTE: NOV 09, 2024@15:53 ENTRY DATE: NOV 09, 2024@15:53:42 AUTHOR: UNRULY MEJIA EXP COSIGNER: URGENCY: STATUS: COMPLETED Clinical services were provided by me from the [facility] to the [facility] of care: [facility] Modality of Care: Clinical Video Telehealth (CVT) Length of Service: 60 minutes Provisional Diagnosis: Nephrogenic DI, Polyuria, Polydipsia, HTN Please see Joint Legacy Viewer (JLV) for progress notes, clinical reminders, patient orders, consults, and any associated clinical data /es/ UNRULY MEJIA MD WASTE WATER OR WATER PLANT OPERATOR Signed: 11/10/2024 22:31 UNRULY MEJIA [facility]
[2025-01-19 13:10] LABS: Troponin-I High Sensitivity 6.4 ng/L (<3.5-35.0)
[2025-01-19] MEDS: amLODIPine Besylate 5 MG TABLET PO (14:08)
[2025-01-19] MEDS: clonazePAM 1 MG TABLET PO (16:04)
[2025-01-19 17:30] LABS: Alkaline Phosphatase 72 U/L (39-117)
== END 2025-01-19 17:03 | disposition home or self-care (01) ==
PROVIDERS: Physician Assistant; Emergency Provider Emergency Medicine Emergency Medical Services
DX: I10 Essential (primary) hypertension (principal); R51.9 Headache, unspecified; Z79.899 Other long term (current) drug therapy
CPT/HCPCS: 36415; 80048; 80076; 80307; 81003; 83735; 84484; 85025; 93005; 99284

== ENCOUNTER → 2025-01-19 10:36 | Outpatient (BNV) | payer OTHER, SELFPAY | PROVIDERS: Emergency Provider Emergency Medicine Emergency Medical Services; Visit Provider Internal Medicine | DX: I10 Essential (primary) hypertension (principal) | CPT/HCPCS: 93010 ==

== ENCOUNTER 2025-05-25 10:16 | Emergency (ER) | payer OTHER, SELFPAY ==
--- NOTE | 2025-05-25 10:17 | ED_ITS ---
HPI - General Adult General Chief complaint: General Medical Stated complaint: HYPERTENSION Time Seen by Provider: 05/25/25 10:17 Source: patient, RN notes reviewed and old records reviewed Mode of arrival: ambulatory Limitations: no limitations History of Present Illness ED Provider: Dat HPI narrative: Patient is a 45-year-old male with history of Bipolar disorder, HTN presenting to the ED from work where his BP was noted to be elevated. 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 States he felt mild lightheadedness but denies headache, vision changes, chest pain or shortness of breath. States that his HTN is managed by his customer account manager and he is currently on propranolol 20mg TID and hydralazine 50mg TID. Sees a customer account manager due to long-term use of lithium which he is no longer on. States his blood pressure readings at the school prior to arrival were in the 190's over one-teens. MD complaint: hypertension Related Data Allergies Allergy/AdvReac Type Severity Reaction Status Date / Time lactose Allergy Intermediate Gastrointestinal Verified 05/25/25 11:04 Upset Review of Systems 2 Review of Systems: As per HPI Yes all other systems are reviewed and are negative Constitutional: Constitutional: Reports as per HPI [facility] Social History Social History Alcohol intake: current Alcohol type: hard liquor Use of substances other than those prescribed or required for medical reasons: Yes Substance Use Type: Marijuana Substance Use Frequency Other:: a few tsp daily Advance Directives: No Advance Directives Information Provided: Yes Physical Exam ED Vital Signs: Vital Signs - 24 hr 05/25/25 10:21 05/25/25 12:06 05/25/25 13:55 Temperature 97.6 F Pulse Rate 63 65 Respiratory Rate 16 16 Blood Pressure 164/98 H 164/98 H 154/99 H Pulse Oximetry 98 99 Oxygen Delivery Method Room Air Room Air BMI result Body Mass Index 34.7 Vital signs have been reviewed and appear to be correct. Blood pressure elevated. Heart rate normal. Respiratory rate normal. Temperature normal. Oxygen saturation normal. Const General: cooperative, healthy appearing and no acute distress Orientation/consciousness: oriented to person, oriented to place, oriented to time and patient oriented x3 Limitations: no limitations HENMT Head: Yes normocephalic and Yes atraumatic Ears: external ears normal General nose exam: Normal external nose present Face and sinus: Yes face symmetric Mouth: oropharynx normal and moist mucous membranes Throat: Yes uvula midline Eyes Pupils: Equal, round and reactive pupils present Neck Neck: Yes normal visual inspection and Yes supple Resp Effort & Inspection: normal respiratory effort and able to speak in complete sentences Auscultation: clear to auscultation bilaterally Cardio Rate: regular rate Rhythm: regular rhythm Heart sounds: S1 normal heart sound present and S2 normal heart sound present GI Palpation (GI): Soft to palpation and nontender Auscultation: normoactive bowel sounds General: Yes no CVA tenderness Back/Spine/Pelvis Back: no CVA tenderness Skin General skin exam: elasticity normal and turgor normal Neuro General: oriented to person, oriented to place, oriented to time, patient oriented x3, moves all extremities, no focal motor deficits and CN's II-XI intact bilaterally Cranial nerves: Yes Equal, round and reactive pupils present Cognition (Neuro): normal cognition Extrem General: Yes full ROM, Yes no pedal edema and Yes no calf tenderness Psych Mental Status: mental status grossly normal Affect: normal affect Thought process: Normal thought process present Medications Administered Discontinued Medications Generic Name Dose Route Start Last Admin Trade Name Freq PRN Reason Stop Dose Admin Hydralazine HCl 50 mg 05/25/25 11:35 05/25/25 12:06 Hydralazine Hcl 50 Mg Tablet PO 05/25/25 11:36 50 mg ONCE ONE Administration Protocol Propranolol HCl 20 mg 05/25/25 11:35 05/25/25 12:40 Propranolol Hcl 20 Mg Tablet PO 05/25/25 11:36 20 mg ONCE ONE Administration Protocol Medical Decision Making Medical Decision Making [facility] Narrative: Patient is a 45-year-old male with history of Bipolar disorder, HTN presenting to the ED from work where his BP was noted to be elevated. On exam patient is awake, A+Ox3, BP elevated, VS otherwise WNL, afebrile, normal neurological exam without focal deficits, physical exam findings as above. Given reported symptoms and physical exam findings, initial differential includes but is not limited to uncontrolled hypertension, electrolyte abnormality, ADIN, hypertensive urgency/emergency. Low suspicion for ICH as patient denies headache, vision changes and has no focal neuro deficits. EKG shows normal sinus rhythm. Labs notable for no evidence of ADIN, negative troponin. Plan to medicate patient with noon time doses of his propranolol and hydralazine, then reassess. BP improved with patient's regularly prescribed medications. Advised patient to follow up with his customer account manager for further evaluation and he states that he has already spoken to her while in the ED today and has a follow up appointment scheduled. Return precautions discussed. Patient verbalized understanding of and agreement with plan. Differential Diagnosis Differential Diagnoses: The differential diagnosis associated with the presentation includes As per [facility] Admission/Observation Consideration of admission/observation: Escalation of care including admission/observation considered Patient would have been admitted to the hospital had their clinical presentation warranted hospital admission. Lab Data [facility] Lab Attestation statement: I reviewed the patient's lab results. as per [facility] 05/25/25 10:52 05/25/25 10:52 Labs: Lab Results 05/25/25 Range/Units 10:52 WBC 7.2 (4.8-10.8) X10*3/uL RBC 5.30 (4.60-5.80) X10*6/uL Hgb 15.7 (14.0-18.0) g/dl Hct 47.7 (42.0-52.0) % MCV 90.0 (80.0-98.0) fL MCH 29.6 (27.0-33.0) pg MCHC 32.9 (31.0-36.0) g/dl RDW 14.2 (11.0-16.0) % Plt Count Not Reportable MPV Not Reportable Immature Gran % (Auto) 0.1 (0.0-0.4) % Neut % (Auto) 58.1 (45-73) % Lymph % (Auto) 31.9 (20-40) % [place] % (Auto) 7.7 (2-11) % Eos % (Auto) 1.5 (0-4) % Baso % (Auto) 0.7 (0-2) % Lymph # (Auto) 2.3 (1.2-4.9) X10*3/uL [place] # (Auto) 0.6 (0.1-1.2) X10*3/uL Eos # (Auto) 0.1 (0.0-0.4) X10*3/uL Baso # (Auto) 0.1 (0.0-0.2) X10*3/uL Abs Immat Gran (auto) 0.01 (0.00-0.03) X10*3/uL Absolute Neuts (auto) 4.2 (2.0-8.3) x10*3/uL Absolute Nucleated RBC 0.000 (0.0-0.012) X10*3/uL Nucleated RBC % (auto) 0.0 (0.0-0.2) /100WBC Smear Tech's Comments VERIFIED Sodium 144 (135-145) mmol/L Potassium 3.7 (3.3-5.1) mmol/L Chloride 110 H (96-108) mmol/L Carbon Dioxide 23 (22-29) mmol/L Anion Gap 15 (12-20) BUN 16 (9-16) mg/dL Creatinine 1.05 (0.5-1.4) mg/dL Estim Creat Clear Calc 112.1 Estimated GFR > 60 Random Glucose 97 (60-115) mg/dL Calcium 9.0 (8.4-10.2) mg/dL Magnesium 2.2 (1.6-2.6) mg/dL Total Bilirubin 0.5 (0.0-1.0) mg/dL AST 24 (5-37) U/L ALT 28 (0-40) U/L Alkaline Phosphatase 69 (39-117) U/L Troponin I High Sens 3.2 (<3.5-35.0) ng/L Total Protein 7.0 (6.5-8.0) g/dL Albumin 4.5 (3.5-5.0) g/dL Independent Interpretation I performed an independent interpretation of an: EKG (normal sinus rhythm, rate 63 bpm, normal PT interval and qtc) External Record Review External record reviewed: Inpatient record, Office record and Outpatient record Critical Care Time Critical Care Time Critical Care Time: Yes Total Critical Care Time: 33 Attestation: I have personally provided critical care time exclusive of time spent on separately billable procedures. Time includes review of lab data, radiology results, discussion with consultants, and monitoring for potential decompensation. Intervention performed as documented. Discharge Plan Discharge Clinical Impression: Uncontrolled hypertension Patient Disposition: Home, Self-Care Instructions: Hypertension (ED), How to Take a Blood Pressure Reading (ED) Additional Instructions: You were evaluated in the emergency department today for elevated blood pressure, also known as hypertension. Your blood pressure improved in the emergency department after taking your regularly prescribed medications. Your EKG and labs were reassuring. We recommend that you follow-up with your customer account manager as soon as possible for further evaluation of your blood pressure and possible medication changes. Return to the emergency department if you develop headache, vision changes, chest pain, shortness of breath, palpitations, dizziness or lightheadedness, fainting or any other new or concerning symptoms. Print Language: Emirati
--- NOTE | 2025-05-25 10:20 | ECG_ITS ---
Test Reason : HYPERTENSION Blood Pressure : */* mmHG Vent. Rate : 63 BPM Atrial Rate : 63 BPM P-R Int : 172 ms QRS Dur : 98 ms QT Int : 424 ms P-R-T Axes : 39 29 -3 degrees QTcB Int : 433 ms Normal sinus rhythm Minimal voltage criteria for LVH, may be normal variant ( Sokolow-Garcia ) Borderline ECG When compared with ECG of 19-Jan-2025 10:47, No significant change was found Referred By: Angie Daugherty Electronically Signed By: ALESSANDRA WILKINS MD
[2025-05-25 10:21] VITALS: BP 164/98; PULSE 63; RESP 16; TEMP 36.4; O2SAT 98; BMI 34.7
[2025-05-25 10:22] VITALS: BP 180/115; PULSE 71; O2SAT 100
[2025-05-25 11:02] LABS: Hematocrit 47.7 % (42.0-52.0); Hemoglobin 15.7 g/dl (14.0-18.0); Imm Gran Abs Auto 0.01 X10*3/uL (0.00-0.03); Imm Gran Pct Auto 0.1 % (0.0-0.4); Lymphocytes Absolute Auto 2.3 X10*3/uL (1.2-4.9); MANUAL DIFF FLAG SCAN; Mean Corpuscular HGB Conc 32.9 g/dl (31.0-36.0); Mean Corpuscular Hemoglobin 29.6 pg (27.0-33.0); Mean Corpuscular Volume 90.0 fL (80.0-98.0); NRBC Abs Auto 0.000 X10*3/uL (0.0-0.012); NRBC Pct Auto 0.0 /100WBC (0.0-0.2); PLT CLUMP 1; Red Blood Count 5.30 X10*6/uL (4.60-5.80); SCAN SMEAR FLAG 1
--- NOTE | 2025-05-25 11:08 | PC.NURSE ---
Pt placed on full monitor on arrival. VSS, slightly hypertensive on arrival. No CP No SOB No dizziness NAD. Pt in NSR on tele.
[2025-05-25 11:11] LABS: Alanine Aminotransferase 28 U/L (0-40); Albumin Level 4.5 g/dL (3.5-5.0); Alkaline Phosphatase 69 U/L (39-117); Anion Gap 15 (12-20); Aspartate Amino Transferase 24 U/L (5-37); Blood Urea Nitrogen 16 mg/dL (9-16); Calcium 9.0 mg/dL (8.4-10.2); Carbon Dioxide 23 mmol/L (22-29); Chloride 110 mmol/L (96-108); Creatinine Clr Calc Pharmacy 112.1; Estimated Glomerular Filt Rate > 60; Magnesium 2.2 mg/dL (1.6-2.6); Potassium 3.7 mmol/L (3.3-5.1); Sodium 144 mmol/L (135-145); Total Protein 7.0 g/dL (6.5-8.0)
[2025-05-25 11:18] LABS: Troponin-I High Sensitivity 3.2 ng/L (<3.5-35.0)
[2025-05-25 11:38] LABS: White Blood Count 7.2 X10*3/uL (4.8-10.8)
[2025-05-25 12:06] VITALS: BP 164/98
[2025-05-25 13:55] VITALS: BP 154/99; PULSE 65; RESP 16; O2SAT 99
[2025-05-25 14:30] VITALS: BP 153/103; PULSE 65; RESP 16; TEMP 36.6; O2SAT 99
== END 2025-05-25 14:45 | disposition home or self-care (01) ==
PROVIDERS: Registered Nurse Emergency; Emergency Provider Emergency Medicine; PCP General Practice
DX: R94.31 Abnormal electrocardiogram [ECG] [EKG] (principal); I10 Essential (primary) hypertension; Z79.899 Other long term (current) drug therapy
CPT/HCPCS: 36415; 80053; 83735; 84484; 85025; 93005; 99283; 99284

== ENCOUNTER → 2025-05-25 10:20 | Outpatient (BNV) | payer OTHER, SELFPAY | PROVIDERS: Emergency Provider Emergency Medicine; PCP General Practice; Visit Provider Internal Medicine Cardiovascular Disease | DX: I10 Essential (primary) hypertension (principal) | CPT/HCPCS: 93010 ==

== ENCOUNTER 2025-05-28 08:17 | Emergency (ER) | payer OTHER, SELFPAY ==
[2025-05-28] VITALS (8 sets, daily range): BP systolic 142–181; BP diastolic 95–115; PULSE 64–96; RESP 16; TEMP 36.4–36.8; O2SAT 96–100; BMI 35.0
--- NOTE | 2025-05-28 | ECG_ITS ---
Test Reason : dizziness Blood Pressure : */* mmHG Vent. Rate : 51 BPM Atrial Rate : 51 BPM P-R Int : 182 ms QRS Dur : 88 ms QT Int : 432 ms P-R-T Axes : 31 26 4 degrees QTcB Int : 398 ms Sinus bradycardia Otherwise normal ECG When compared with ECG of 25-May-2025 10:43, No significant change was found Referred By: Oliver Angeles Electronically Signed By: ALESSANDRA WILKINS MD
--- NOTE | ~2025-05-28 | XR_ITS ---
EXAMINATION: XR CHEST CLINICAL INFORMATION: SOB COMPARISON: None available. TECHNIQUE: Frontal view of the chest was obtained. FINDINGS: No hyperinflation. Mild prominence of the interstitial markings. No consolidation, pleural effusion or pneumothorax. Cardiomediastinal silhouette size is normal. Osseous structures are grossly intact. XR/XR chest 1V IMPRESSION: Concerning acute small airway inflammatory process in the correct clinical settings. Electronically signed by: Yoan tSanley MD 05/28/2025 09:56 AM EDT
--- NOTE | 2025-05-28 08:32 | ED_ITS ---
HPI - General Adult General Chief complaint: Dizziness Stated complaint: DIZZY, BP 170/105,FROM WORK PER EMS Time Seen by Provider: 05/28/25 08:24 Source: patient Mode of arrival: EMS Limitations: no limitations History of Present Illness HPI narrative: This is a 45 years old the patient with a history of bipolar disorder, anxiety, essential hypertension presented to the emergency department with a chief complaint of elevated blood pressure. He states that he was at work today his blood pressure was elevated he feel lightheaded dizzy and call 911. He is feeling better now. He takes propranolol 20 mg t.i.d. and hydralazine 50 t.i.d. he states that he has been taking his medication. Onset (ago): hour(s) (1) Radiation: non-radiation Severity: mild Pain Consistency: constant Relieving factors: none Exacerbating factors: none Related Data Allergies Allergy/AdvReac Type Severity Reaction Status Date / Time lactose Allergy Intermediate Gastrointestinal Verified 05/28/25 08:30 Upset Review of Systems 2 Constitutional: Constitutional: Reports no additional constitutional complaints Respiratory: Respiratory: Reports no additional respiratory complaints Neurologic: Reports system reviewed and no additional complaints, except as documented [facility] Past Medical History Attestation statement: The following information was validated with the patient. [facility] Narrative: Hypertension/bipolar disorder/anxiety Social History Social History Alcohol intake: current Alcohol type: hard liquor Smoked in Last 30 Days: No Use of substances other than those prescribed or required for medical reasons: Yes Substance Use Type: Marijuana Advance Directives: No Advance Directives Information Provided: Yes Do you have a plan to hurt others: No Plan Physical Exam ED Exam Exam: On examination looks well not toxic appearing Vital Signs: Vital Signs - 24 hr 05/28/25 08:26 05/28/25 08:31 05/28/25 10:49 Temperature 98.2 F 98.2 F 97.6 F Pulse Rate 74 74 64 Respiratory Rate 16 16 16 Blood Pressure 142/104 H 142/104 H 181/115 H Pulse Oximetry 96 96 100 Oxygen Delivery Method Room Air Room Air Room Air 05/28/25 10:53 05/28/25 12:21 05/28/25 12:22 Temperature Pulse Rate 67 Respiratory Rate Blood Pressure 151/95 H 159/106 H 151/95 H Pulse Oximetry Oxygen Delivery Method 05/28/25 13:56 Temperature Pulse Rate Respiratory Rate Blood Pressure 151/95 H Pulse Oximetry Oxygen Delivery Method BMI result Body Mass Index 35.0 Const General: cooperative Orientation/consciousness: patient oriented x3 HENMT Head: Yes normal to inspection General nose exam: Normal external nose present Face and sinus: Yes normal facial exam Neck Neck: Yes normal visual inspection Chest Chest palpation & inspection: normal inspection of the chest Resp Effort & Inspection: normal respiratory effort Auscultation: clear to auscultation bilaterally Cardio Jugular venous distension: no JVD Palpation: normal PMI Rate: regular rate GI Inspection: Yes normal to inspection Palpation (GI): Soft to palpation, not firm and nontender Auscultation: normal bowel sounds Skin General skin exam: no rashes or lesions noted, elasticity normal and turgor normal Neuro General: patient oriented x3 Course Reevaluation(s) Reevaluation #1: Blood pressure is much better he is asymptomatic I think he can be discharged home at this point Time: 14:59 Medications Administered Discontinued Medications Generic Name Dose Route Start Last Admin Trade Name Dougq PRN Reason Stop Dose Admin Clonazepam 1 mg 05/28/25 08:31 05/28/25 08:35 Clonazepam 1 Mg Tablet PO 05/28/25 08:32 1 mg ONCE ONE Administration Clonidine HCl 0.1 mg 05/28/25 13:51 05/28/25 13:56 Clonidine Hcl 0.1 Mg Tablet PO 05/28/25 13:52 0.1 mg ONCE ONE Administration Protocol Hydralazine HCl 50 mg 05/28/25 12:00 05/28/25 12:22 Hydralazine Hcl 50 Mg Tablet PO 05/28/25 12:01 50 mg ONCE ONE Administration Protocol Propranolol HCl 40 mg 05/28/25 11:58 05/28/25 12:21 Propranolol Hcl 40 Mg Tablet PO 05/28/25 11:59 40 mg ONCE ONE Administration Protocol Medical Decision Making Medical Decision Making [facility] Narrative: Patient is here with dizziness elevated blood pressure we will do an EKG and labs 15:00 doing much better he is asymptomatic labs normal we will discharge home Differential Diagnosis Differential Diagnoses: The differential diagnosis associated with the presentation includes Hypertensive urgency/anxiety Admission/Observation Consideration of admission/observation: Escalation of care including admission/observation considered Lab Data [facility] Lab Attestation statement: I reviewed the patient's lab results. 05/28/25 09:07 05/28/25 09:07 Labs: Lab Results 05/28/25 Range/Units 09:07 WBC 6.5 (4.8-10.8) X10*3/uL RBC 5.21 (4.60-5.80) X10*6/uL Hgb 15.5 (14.0-18.0) g/dl Hct 44.0 (42.0-52.0) % MCV 84.5 D (80.0-98.0) fL MCH 29.8 (27.0-33.0) pg MCHC 35.2 (31.0-36.0) g/dl RDW 13.7 (11.0-16.0) % Plt Count 235 (160-400) X10*3/uL MPV 9.6 (9.4-12.4) fL Immature Gran % (Auto) 0.3 (0.0-0.4) % Neut % (Auto) 64.0 (45-73) % Lymph % (Auto) 25.3 (20-40) % [place] % (Auto) 7.6 (2-11) % Eos % (Auto) 2.0 (0-4) % Baso % (Auto) 0.8 (0-2) % Lymph # (Auto) 1.6 (1.2-4.9) X10*3/uL [place] # (Auto) 0.5 (0.1-1.2) X10*3/uL Eos # (Auto) 0.1 (0.0-0.4) X10*3/uL Baso # (Auto) 0.1 (0.0-0.2) X10*3/uL Abs Immat Gran (auto) 0.02 (0.00-0.03) X10*3/uL Absolute Neuts (auto) 4.1 (2.0-8.3) x10*3/uL Absolute Nucleated RBC 0.000 (0.0-0.012) X10*3/uL Nucleated RBC % (auto) 0.0 (0.0-0.2) /100WBC Sodium 141 (135-145) mmol/L Potassium 3.6 (3.3-5.1) mmol/L Chloride 111 H (96-108) mmol/L Carbon Dioxide 22 (22-29) mmol/L Anion Gap 12 (12-20) BUN 16 (9-16) mg/dL Creatinine 1.02 (0.5-1.4) mg/dL Estim Creat Clear Calc 118.5 Estimated GFR > 60 Random Glucose 90 (60-115) mg/dL Calcium 9.2 (8.4-10.2) mg/dL Total Bilirubin 0.3 (0.0-1.0) mg/dL AST 26 (5-37) U/L ALT 31 (0-40) U/L Alkaline Phosphatase 78 (39-117) U/L Troponin I High Sens 4.7 (<3.5-35.0) ng/L Total Protein 6.5 (6.5-8.0) g/dL Albumin 4.2 (3.5-5.0) g/dL Independent Interpretation I performed an independent interpretation of an: EKG (Normal sinus rhythm rate [address]-T changes) Independent Historian Clinical information obtained from an independent historian. History obtained from or confirmed by: EMS Critical Care Time Critical Care Time Critical Care Time: Yes Total Critical Care Time: 60 Attestation: Elevated blood pressure monitoring in the emergency department administration blood pressure medications clinic clonidine hydralazine propranolol Discharge Plan Discharge Clinical Impression: Hypertension, uncontrolled Patient Disposition: Home, Self-Care Instructions: Hypertension (ED) Additional Instructions: Follow-up with your primary care physician return to the emergency room if you worse Print Language: Trinidadian
[2025-05-28 09:15] LABS: MANUAL DIFF FLAG NO
[2025-05-28 09:18] LABS: Hematocrit 44.0 % (42.0-52.0); Hemoglobin 15.5 g/dl (14.0-18.0); Imm Gran Abs Auto 0.02 X10*3/uL (0.00-0.03); Imm Gran Pct Auto 0.3 % (0.0-0.4); Lymphocytes Absolute Auto 1.6 X10*3/uL (1.2-4.9); Mean Corpuscular HGB Conc 35.2 g/dl (31.0-36.0); Mean Corpuscular Hemoglobin 29.8 pg (27.0-33.0); Mean Corpuscular Volume 84.5 fL (80.0-98.0); NRBC Abs Auto 0.000 X10*3/uL (0.0-0.012); NRBC Pct Auto 0.0 /100WBC (0.0-0.2); Platelet Count 235 X10*3/uL (160-400); Red Blood Count 5.21 X10*6/uL (4.60-5.80); White Blood Count 6.5 X10*3/uL (4.8-10.8)
[2025-05-28 09:43] LABS: Alanine Aminotransferase 31 U/L (0-40); Albumin Level 4.2 g/dL (3.5-5.0); Alkaline Phosphatase 78 U/L (39-117); Anion Gap 12 (12-20); Aspartate Amino Transferase 26 U/L (5-37); Blood Urea Nitrogen 16 mg/dL (9-16); Calcium 9.2 mg/dL (8.4-10.2); Carbon Dioxide 22 mmol/L (22-29); Chloride 111 mmol/L (96-108); Creatinine Clr Calc Pharmacy 118.5; Estimated Glomerular Filt Rate > 60; Potassium 3.6 mmol/L (3.3-5.1); Sodium 141 mmol/L (135-145); Total Protein 6.5 g/dL (6.5-8.0)
[2025-05-28 09:50] LABS: Troponin-I High Sensitivity 4.7 ng/L (<3.5-35.0)
== END 2025-05-28 15:10 | disposition home or self-care (01) ==
PROVIDERS: Emergency Provider Emergency Medicine; PCP General Practice
DX: R00.1 Bradycardia, unspecified (principal); R42 Dizziness and giddiness; I10 Essential (primary) hypertension; Z79.899 Other long term (current) drug therapy
CPT/HCPCS: 36415; 71045; 80053; 84484; 85025; 93005; 99283; 99285

== ENCOUNTER → 2025-05-28 08:31 | Outpatient (BNV) | payer OTHER, SELFPAY | PROVIDERS: Emergency Provider Emergency Medicine; PCP General Practice; Visit Provider Radiology Diagnostic Radiology | DX: R06.02 Shortness of breath (principal) | CPT/HCPCS: 71045 ==

== ENCOUNTER → 2025-05-28 11:07 | Outpatient (BNV) | payer OTHER, SELFPAY | PROVIDERS: Emergency Provider Emergency Medicine; PCP General Practice; Visit Provider Internal Medicine Cardiovascular Disease | DX: R00.1 Bradycardia, unspecified (principal) | CPT/HCPCS: 93010 ==

== ENCOUNTER 2025-05-31 21:02 | Emergency (ER) | payer OTHER, SELFPAY ==
--- NOTE | ~2025-05-31 | XR_ITS ---
CLINICAL HISTORY: chest pain 2 view chest x-ray Comparison: CR/SR - XR CHEST 1 VIEW - 05/28/25 09:44 EDT Findings: The lungs are clear. Heart size is normal. No acute fracture. IMPRESSION: 1. No acute findings. This document has been electronically signed by: Germania Walsh MD on 05/31/2025 22:48:22
[2025-05-31 21:20] VITALS: BP 210/120; PULSE 66; RESP 20; TEMP 36.4; O2SAT 97; BMI 34.7
--- NOTE | 2025-05-31 21:38 | ECG_ITS ---
Test Reason : HIGH BLLOD PRESSURE Blood Pressure : */* mmHG Vent. Rate : 59 BPM Atrial Rate : 59 BPM P-R Int : 162 ms QRS Dur : 98 ms QT Int : 442 ms P-R-T Axes : 34 29 -7 degrees QTcB Int : 437 ms Sinus bradycardia with sinus arrhythmia Moderate voltage criteria for LVH, may be normal variant ( Sokolow-Garcia , Bird product ) Borderline ECG When compared with ECG of 28-May-2025 11:07, No significant change was found Referred By: Natalie Thomas Electronically Signed By: FANNIE CHI
--- NOTE | 2025-05-31 21:38 | ED_ITS ---
HPI - General Adult General Chief complaint: General Medical Stated complaint: hypertensive crisis Time Seen by Provider: 05/31/25 21:38 Source: patient Mode of arrival: ambulatory Limitations: no limitations History of Present Illness ED Provider: Dr. Natalie Thomas HPI narrative: 45-year-old male with history of hypertension and renal insufficiency presenting with elevated blood pressures from school. 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 He went to the urgent care who then told him to come to the emergency department. Has not taking all of his blood pressure medications as prescribed including propanolol and hydralazine. His blood pressure is managed by his kidney specialist. States that he has been having issues with poorly controlled high blood pressure since about December. At that time, he had been hospitalized for this issue and was noted to be in acute renal failure with a elevated potassium levels in the setting of lithium use. Since that time, he was taken off of his lithium and his blood pressures have been somewhat labile. He takes hydralazine 3 times a day and propanolol 3 times a day. No other blood pressure medications at this point. He denies associated chest pain, difficulty breathing, headaches, flank pain, decreased urination or leg swelling. Related Data Previous Rx's ?Medication ?Instructions ?Recorded hydralazine 50 mg tablet 50 mg PO TID #30 tabs Allergies Allergy/AdvReac Type Severity Reaction Status Date / Time lactose Allergy Intermediate Gastrointestinal Verified 05/31/25 21:28 Upset Review of Systems 2 Review of Systems: As per HPI, full review of systems performed and negative but for the above mentioned pertinent positives and negatives. [facility] Social History Social History Alcohol intake: current Alcohol type: hard liquor Substance Use Type: Marijuana Advance Directives: No Advance Directives Information Provided: No Do you have a plan to hurt others: No Plan Physical Exam ED Exam Exam: GENERAL: Well-Appearing, conversant, no acute distress. SKIN: Normal skin color for ethnicity, warm, dry, no rashes noted. HEENT: Normocephalic, atraumatic, no stridor, posterior oropharynx nonerythematous, dentition intact, EOMI. NECK: Soft, supple, full ROM, midline structures nontender, no step-offs, no deformities, no lymphadenopathy. CHEST: Heart regular rate and rhythm, no murmurs, symmetric chest rise and fall. PULMONARY: Clear to auscultation bilaterally, no labored breathing, no wheezes/rhales/rhonchi. ABDOMINAL: Soft, nondistended, nontender, positive bowel sounds in all quadrants. : Deferred. MUSCULOSKELETAL: Normal tone, full range of motion, no deformities, no peripheral edema. NEURO: Alert and oriented x3, CN II through XII intact, equal strength and sensation bilateral upper and lower extremities, no focal neurologic deficits. PSYCHIATRIC: Normal affect, fluid speech, good eye contact and appropriate demeanor. Vital Signs: Vital Signs - 24 hr 05/31/25 21:20 05/31/25 21:57 06/01/25 00:48 Temperature 97.6 F 98.2 F Pulse Rate 66 64 Respiratory Rate 20 Blood Pressure 210/120 H 175/128 H 172/111 H Pulse Oximetry 97 97 Oxygen Delivery Method Room Air Room Air 06/01/25 01:51 Temperature Pulse Rate Respiratory Rate Blood Pressure 161/103 H Pulse Oximetry Oxygen Delivery Method BMI result Body Mass Index 34.7 Medications Administered Discontinued Medications Generic Name Dose Route Start Last Admin Trade Name Dougq PRN Reason Stop Dose Admin Clonidine HCl 0.3 mg 06/01/25 00:20 06/01/25 01:51 Clonidine Hcl 0.1 Mg Tablet PO 06/01/25 00:21 0.3 mg ONCE ONE Administration Protocol Diazepam 5 mg 05/31/25 22:31 05/31/25 23:00 Diazepam 5 Mg Tablet PO 05/31/25 22:32 5 mg ONCE ONE Administration Nifedipine 60 mg 05/31/25 21:42 05/31/25 21:57 Nifedipine Er 60 Mg Tab.Er.24 PO 05/31/25 21:43 60 mg ONCE ONE Administration Protocol Medical Decision Making Medical Decision Making MDM Narrative: Patient presenting with chief complaint of high blood pressures from dialysis today. Differential diagnosis includes hypertensive urgency, hypertensive emergency, essential hypertension, uncontrolled hypertension, ACS, aortic dissection when accompanied with pain or neurologic dysfunction, renal insufficiency or injury, electrolyte abnormality, among many others. Patient given nifedipine p.o. with no significant change. We will attempt diazepam. Diazepam with very little effect. Plan for clonidine. Patient now having improved blood pressures after these multiple medications. I discussed importance of follow up with his treatment supervisor as well as strict return precautions to the emergency department. Using shared decision making, plan for discharge home to follow-up with primary care and/or specialist. Patient understands and agrees with plan for discharge. Discharged home in stable condition. Differential Diagnosis Differential Diagnoses: The differential diagnosis associated with the presentation includes (As above) Admission/Observation Consideration of admission/observation: Escalation of care including admission/observation considered Lab Data MDM Lab Attestation statement: I reviewed the patient's lab results. 05/31/25 22:07 05/31/25 22:07 Labs: Lab Results 05/31/25 Range/Units 22:07 WBC 11.3 H (4.8-10.8) X10*3/uL RBC 5.82 H (4.60-5.80) X10*6/uL Hgb 17.5 (14.0-18.0) g/dl Hct 49.2 (42.0-52.0) % MCV 84.5 (80.0-98.0) fL MCH 30.1 (27.0-33.0) pg MCHC 35.6 (31.0-36.0) g/dl RDW 13.7 (11.0-16.0) % Plt Count 266 (160-400) X10*3/uL MPV 9.6 (9.4-12.4) fL Immature Gran % (Auto) 0.3 (0.0-0.4) % Neut % (Auto) 64.9 (45-73) % Lymph % (Auto) 26.2 (20-40) % [place] % (Auto) 7.8 (2-11) % Eos % (Auto) 0.4 (0-4) % Baso % (Auto) 0.4 (0-2) % Lymph # (Auto) 3.0 (1.2-4.9) X10*3/uL [place] # (Auto) 0.9 (0.1-1.2) X10*3/uL Eos # (Auto) 0.1 (0.0-0.4) X10*3/uL Baso # (Auto) 0.1 (0.0-0.2) X10*3/uL Abs Immat Gran (auto) 0.03 (0.00-0.03) X10*3/uL Absolute Neuts (auto) 7.3 (2.0-8.3) x10*3/uL Absolute Nucleated RBC 0.000 (0.0-0.012) X10*3/uL Nucleated RBC % (auto) 0.0 (0.0-0.2) /100WBC Sodium 142 (135-145) mmol/L Potassium 3.7 (3.3-5.1) mmol/L Chloride 106 (96-108) mmol/L Carbon Dioxide 24 (22-29) mmol/L Anion Gap 16 (12-20) BUN 17 H (9-16) mg/dL Creatinine 1.23 (0.5-1.4) mg/dL Estim Creat Clear Calc 95.0 Estimated GFR > 60 Random Glucose 94 (60-115) mg/dL Calcium 10.2 D (8.4-10.2) mg/dL Total Bilirubin 1.1 H (0.0-1.0) mg/dL AST 24 (5-37) U/L ALT 28 (0-40) U/L Alkaline Phosphatase 79 (39-117) U/L Troponin I High Sens 5.5 (<3.5-35.0) ng/L B-Natriuretic Peptide 37 (<100) pg/mL Total Protein 8.3 H (6.5-8.0) g/dL Albumin 5.3 H (3.5-5.0) g/dL Independent Interpretation I performed an independent interpretation of an: EKG Interpretation: My independent interpretation of the ECG reveals normal sinus bradycardia with rate of if 59, normal axis, normal intervals, LVH, no ST elevations or depressions to suggest ischemic changes, relatively unchanged from previous on 05/28/2025. My independent interpretation of the chest x-ray reveals no consolidations, pulmonary edema, pleural effusion, pneumothorax, obvious bony abnormalities. Radiology Impression Discussion of test interpretation with radiology: I have reviewed the radiologist's reading. External Record Review External record reviewed: Inpatient record Chronic Conditions Patient?s care impacted by: Hypertension and Other (bipolar disorder, PTSD) Discharge Plan Discharge Clinical Impression: Hypertension, uncontrolled Patient Disposition: Home, Self-Care Instructions: Chronic Hypertension (ED) Additional Instructions: Elevated blood pressure in and of itself is not necessarily a medical emergency however, if you were to develop symptoms including chest pain, shortness of breath, severe headaches, inability to tolerate food or drink or fever-this would constitute as an emergency to come to the hospital for. You should call 911 with any medical emergency. Follow-up with your treatment supervisor to discuss treatment options for your poorly controlled blood pressure. Prescriptions: New hydralazine 50 mg tablet 50 mg PO TID Qty: 30 0RF Stand Alone Forms: Work/School Release Print Language: Romanian
[2025-05-31 21:57] VITALS: BP 175/128
[2025-05-31] MEDS: NIFEdipine ER 60 MG TAB.ER.24 PO (21:57)
[2025-05-31 22:16] LABS: MANUAL DIFF FLAG NO
[2025-05-31 22:18] LABS: Hematocrit 49.2 % (42.0-52.0); Hemoglobin 17.5 g/dl (14.0-18.0); Imm Gran Abs Auto 0.03 X10*3/uL (0.00-0.03); Imm Gran Pct Auto 0.3 % (0.0-0.4); Lymphocytes Absolute Auto 3.0 X10*3/uL (1.2-4.9); Mean Corpuscular HGB Conc 35.6 g/dl (31.0-36.0); Mean Corpuscular Hemoglobin 30.1 pg (27.0-33.0); Mean Corpuscular Volume 84.5 fL (80.0-98.0); NRBC Abs Auto 0.000 X10*3/uL (0.0-0.012); NRBC Pct Auto 0.0 /100WBC (0.0-0.2); Platelet Count 266 X10*3/uL (160-400); Red Blood Count 5.82 X10*6/uL (4.60-5.80); White Blood Count 11.3 X10*3/uL (4.8-10.8)
[2025-05-31 22:32] LABS: Alanine Aminotransferase 28 U/L (0-40); Albumin Level 5.3 g/dL (3.5-5.0); Alkaline Phosphatase 79 U/L (39-117); Anion Gap 16 (12-20); Aspartate Amino Transferase 24 U/L (5-37); Blood Urea Nitrogen 17 mg/dL (9-16); Calcium 10.2 mg/dL (8.4-10.2); Carbon Dioxide 24 mmol/L (22-29); Chloride 106 mmol/L (96-108); Creatinine Clr Calc Pharmacy 95.0; Estimated Glomerular Filt Rate > 60; Potassium 3.7 mmol/L (3.3-5.1); Sodium 142 mmol/L (135-145); Total Protein 8.3 g/dL (6.5-8.0)
[2025-05-31 22:37] LABS: B Type Natriuretic Peptide 37 pg/mL (<100)
[2025-05-31 22:39] LABS: Troponin-I High Sensitivity 5.5 ng/L (<3.5-35.0)
[2025-06-01 00:48] VITALS: BP 172/111; PULSE 64; TEMP 36.8; O2SAT 97
[2025-06-01 01:51] VITALS: BP 161/103
--- NOTE | 2025-06-01 01:53 | PC.NURSE ---
Delay in medication administration due to caring for more critical patient. PT medicated as per NOV. oni 161/103
[2025-06-01 04:18] VITALS: BP 141/90; PULSE 80; RESP 16; O2SAT 97
[2025-06-01 06:26] VITALS: BP 141/90; PULSE 80; RESP 16; TEMP 36.5; O2SAT 97
== END 2025-06-01 06:28 | disposition home or self-care (01) ==
PROVIDERS: Emergency Provider Emergency Medicine; PCP General Practice
DX: I16.0 Hypertensive urgency (principal); G90.09 Other idiopathic peripheral autonomic neuropathy; I49.8 Other specified cardiac arrhythmias; Z79.899 Other long term (current) drug therapy
CPT/HCPCS: 36415; 71046; 80053; 83880; 84484; 85025; 93005; 99283; 99284

== ENCOUNTER → 2025-05-31 21:38 | Outpatient (BNV) | payer OTHER, SELFPAY | PROVIDERS: Emergency Provider Emergency Medicine; PCP General Practice; Visit Provider Internal Medicine | DX: I49.9 Cardiac arrhythmia, unspecified (principal); R00.1 Bradycardia, unspecified | CPT/HCPCS: 93010 ==

== ENCOUNTER → 2025-05-31 21:41 | Outpatient (BNV) | payer OTHER, SELFPAY | PROVIDERS: Emergency Provider Emergency Medicine; PCP General Practice; Visit Provider Student in an Organized Health Care Education/Training Program | DX: R07.9 Chest pain, unspecified (principal) | CPT/HCPCS: 71046 ==

== ENCOUNTER 2025-06-30 11:18 | Emergency (ER) | payer OTHER, SELFPAY ==
[2025-06-30] VITALS (7 sets, daily range): BP systolic 177–200; BP diastolic 101–115; PULSE 53–62; RESP 14–20; TEMP 36.2–36.8; O2SAT 96–98; BMI 34.7
--- NOTE | ~2025-06-30 | CT_ITS ---
EXAMINATION: CT HEAD WITHOUT CONTRAST CLINICAL INFORMATION: dizziness, HOFFMAN, elevated BP COMPARISON: None available. TECHNIQUE: Contiguous axial imaging was performed from the skull base to vertex without intravenous administration of contrast. This CT examination was performed using dose optimization techniques as appropriate, variously including the following: *Automated exposure control *Adjustment of mA and/or kV according to patient size (this includes techniques or standardized protocols for targeted exams where dose is matched to indication/reason for exam; i.e. extremities or head) *Use of iterative reconstruction technique DLP: 715 mGy-cm FINDINGS: No acute intracranial hemorrhage, mass effect, midline shift, hydrocephalus or herniation. Shay-white matter differentiation is normal. Posterior cranial fossa contents demonstrated no acute hemorrhage or mass effect. Normal position of the cerebellar tonsils. Sellar/suprasellar region demonstrated no gross masses. No air-fluid levels in the paranasal sinuses. Mild mucosal thickening, left frontal ethmoid recess left ethmoid air cells and left saphenous sinus. Tympanic cavities and mastoid air cells are aerated. CT/CT head/brain wo IV con IMPRESSION: No acute or structural brain abnormality by CT. Mild, likely chronic, left-sided paranasal sinus disease. Electronically signed by: Yoan Stanley MD 06/30/2025 12:44 PM EDT
--- NOTE | 2025-06-30 11:36 | ED.GENADULT ---
HPI - General Adult General Chief complaint: General Medical Stated complaint: hypertensive Time Seen by Provider: 06/30/25 17:33 Source: patient Mode of arrival: ambulatory Limitations: no limitations History of Present Illness ED Provider: Dr. Villavicencio HPI narrative: This is a 45-year-old male history of hypertension on hydralazine, propranolol, losartan for blood pressure medication coming in for elevated blood pressure and dizziness. Patient is described as a pressure in his head. Patient is following nephrology for his blood pressure knee. He stated he is due for panel hydralazine at this time. Denies any neurological symptoms. He does complain of neck pain that radiates up to his head. Related Data Previous Rx's ?Medication ?Instructions ?Recorded hydralazine 50 mg tablet 50 mg PO TID #30 tabs 06/01/25 Allergies Allergy/AdvReac Type Severity Reaction Status Date / Time lactose Allergy Intermediate Gastrointestinal Verified 06/30/25 11:38 Upset Review of Systems Review of Systems: Pertinent review of systems as mentioned in HPI. All other system otherwise negative. [facility] Past Medical History [facility] Narrative: Hypertension Social History Social History Alcohol intake: current Alcohol type: hard liquor Smoked in Last 30 Days: No Use of substances other than those prescribed or required for medical reasons: Yes Substance Use Type: Marijuana Advance Directives: No Advance Directives Information Provided: No Do you have a plan to hurt others: No Plan Physical Exam ED Exam Exam: General: Pleasant, no distress, interacting appropriately Head: Normacephalic, atraumatic ENT: oral mucosa moist, neck supple, no tracheal deviation Cardiovascular: regular rate, regular rhythm, no murmurs, rubbing, gallops Respiratory: CTAB, no wheeze, rales, rhonchi Gastrointestinal: Soft, non distended, non tender, non guarding Extremities: No limb pain or swelling, no calf tenderness Neurological: Awake and alert, no facial droop noted Skin: Warm and dry Psychiatric: Appropriate mood and thoughts Vital Signs: Vital Signs - 24 hr 06/30/25 11:36 06/30/25 15:17 06/30/25 17:55 Temperature 97.9 F 97.2 F 98.3 F Pulse Rate 61 54 57 Respiratory Rate 18 20 16 Blood Pressure 179/101 H 200/105 H 193/115 H Pulse Oximetry 98 96 98 Oxygen Delivery Method Room Air Room Air Room Air 06/30/25 18:24 06/30/25 18:25 06/30/25 18:26 Temperature Pulse Rate 53 58 Respiratory Rate 14 Blood Pressure 183/114 H 183/114 H 183/114 H Pulse Oximetry 98 Oxygen Delivery Method Room Air BMI result Body Mass Index 34.7 Course Course Course Narrative: This is a Rapid Medical Examination (RME) performed by Sha Mccray PA-C in triage. Full HPI, ROS, assessment and treatment plan per primary provider in the Main ED. Hx: 45 yo M hx HTN managed by director customer here for eval of dizziness and head pressure on waking today. 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 reports recent increase to losartan this week. also takes propranolol q am and hydralazine in the afternoon. BPs has been poorly controlled since earlier this year. he states scotch helps . Plan: labs, ekg, CT head Medications Administered Discontinued Medications Generic Name Dose Route Start Last Admin Trade Name Freq PRN Reason Stop Dose Admin Acetaminophen 975 mg 06/30/25 18:12 06/30/25 18:24 Acetaminophen 325 Mg Tablet PO 06/30/25 18:13 975 mg ONCE ONE Administration Diazepam 5 mg 06/30/25 18:12 06/30/25 18:24 Diazepam 5 Mg Tablet PO 06/30/25 18:13 5 mg ONCE ONE Administration Hydralazine HCl 50 mg 06/30/25 18:12 06/30/25 18:24 Hydralazine Hcl 50 Mg Tablet PO 06/30/25 18:13 50 mg ONCE ONE Administration Protocol Propranolol HCl 40 mg 06/30/25 18:12 06/30/25 18:25 Propranolol Hcl 40 Mg Tablet PO 06/30/25 18:13 40 mg ONCE ONE Administration Protocol Medical Decision Making Medical Decision Making MDM Narrative: This is a 45-year-old male history of hypertension presented hospital today for elevated blood pressure and dizziness. Patient's blood pressure was 200 systolic We will plan to give patient's home dose of 40 mg of propranolol, 50 mg of hydralazine p.o. will be given to the patient as well. We will plan to give patient a dose of 5 mg p.o. Valium for tension headache. Tylenol will be given for the patient as well. Patient's blood pressure is elevated at this time. CT head did not show any signs of intracranial bleed. Patient's lab work is unremarkable no sign of his ADIN. EKG does shows left ventricular hypertrophy. Patient's BP has improved. At his normal baseline BP at this time. Patient stated his headache has feel better. We will plan to discharge patient at this time. He will plan to follow up with his director customer for further blood pressure control. Differential Diagnosis Differential Diagnoses: The differential diagnosis associated with the presentation includes ACS, CAD, hypertension, intracranial bleed, dizziness, headache, tension headache Lab Data MDM Lab Attestation statement: I reviewed the patient's lab results. 06/30/25 12:04 06/30/25 12:04 Labs: Lab Results 06/30/25 Range/Units 12:04 WBC 7.1 (4.8-10.8) X10*3/uL RBC 5.19 (4.60-5.80) X10*6/uL Hgb 15.3 (14.0-18.0) g/dl Hct 45.5 (42.0-52.0) % MCV 87.7 (80.0-98.0) fL MCH 29.5 (27.0-33.0) pg MCHC 33.6 (31.0-36.0) g/dl RDW 13.4 (11.0-16.0) % Plt Count 270 (160-400) X10*3/uL MPV 9.5 (9.4-12.4) fL Immature Gran % (Auto) 0.1 (0.0-0.4) % Neut % (Auto) 56.1 (45-73) % Lymph % (Auto) 33.5 (20-40) % [place] % (Auto) 7.7 (2-11) % Eos % (Auto) 2.0 (0-4) % Baso % (Auto) 0.6 (0-2) % Lymph # (Auto) 2.4 (1.2-4.9) X10*3/uL [place] # (Auto) 0.6 (0.1-1.2) X10*3/uL Eos # (Auto) 0.1 (0.0-0.4) X10*3/uL Baso # (Auto) 0.0 (0.0-0.2) X10*3/uL Abs Immat Gran (auto) 0.01 (0.00-0.03) X10*3/uL Absolute Neuts (auto) 4.0 (2.0-8.3) x10*3/uL Absolute Nucleated RBC 0.000 (0.0-0.012) X10*3/uL Nucleated RBC % (auto) 0.0 (0.0-0.2) /100WBC Sodium 142 (135-145) mmol/L Potassium 3.7 (3.3-5.1) mmol/L Chloride 110 H (96-108) mmol/L Carbon Dioxide 25 (22-29) mmol/L Anion Gap 11 L (12-20) BUN 14 (9-16) mg/dL Creatinine 0.95 (0.5-1.4) mg/dL Estim Creat Clear Calc 123.0 Estimated GFR > 60 Random Glucose 118 H (60-115) mg/dL Calcium 9.2 D (8.4-10.2) mg/dL Magnesium 2.1 (1.6-2.6) mg/dL Total Bilirubin 0.5 (0.0-1.0) mg/dL AST 19 (5-37) U/L ALT 23 (0-40) U/L Alkaline Phosphatase 67 (39-117) U/L Troponin I High Sens < 2.7 D (<3.5-35.0) ng/L Total Protein 6.8 (6.5-8.0) g/dL Albumin 4.4 (3.5-5.0) g/dL Independent Interpretation I performed an independent interpretation of an: CT Scan Radiology Impression Discussion of test interpretation with radiology: I have reviewed the radiologist's reading. Discharge Plan Discharge Clinical Impression: Hypertension Qualifiers: Hypertension type: unspecified Qualified Code(s): I10 - Essential (primary) hypertension Headache Qualifiers: Headache type: tension-type Headache chronicity pattern: unspecified pattern Intractability: not intractable Qualified Code(s): G44.209 - Tension-type headache, unspecified, not intractable Patient Disposition: Home, Self-Care Instructions: Chronic Hypertension (ED) Additional Instructions: Follow up with your doctor on your hypertension Prescriptions: No Action hydralazine 50 mg tablet 50 mg PO TID Qty: 30 0RF Stand Alone Forms: Work/School Release Print Language: Micronesian
--- NOTE | 2025-06-30 11:39 | ECG_ITS ---
Test Reason : hypertensive Blood Pressure : */* mmHG Vent. Rate : 59 BPM Atrial Rate : 59 BPM P-R Int : 162 ms QRS Dur : 94 ms QT Int : 422 ms P-R-T Axes : 48 52 -20 degrees QTcB Int : 417 ms Sinus bradycardia with sinus arrhythmia Minimal voltage criteria for LVH, may be normal variant ( Sokolow-Garcia ) Nonspecific T wave abnormality Abnormal ECG When compared with ECG of 31-May-2025 22:29, Nonspecific T wave abnormality now evident in Lateral leads Referred By: Savannah Mccray Electronically Signed By: Nato Lag[place]
[2025-06-30 12:11] LABS: MANUAL DIFF FLAG NO
[2025-06-30 12:15] LABS: Hematocrit 45.5 % (42.0-52.0); Hemoglobin 15.3 g/dl (14.0-18.0); Imm Gran Abs Auto 0.01 X10*3/uL (0.00-0.03); Imm Gran Pct Auto 0.1 % (0.0-0.4); Lymphocytes Absolute Auto 2.4 X10*3/uL (1.2-4.9); Mean Corpuscular HGB Conc 33.6 g/dl (31.0-36.0); Mean Corpuscular Hemoglobin 29.5 pg (27.0-33.0); Mean Corpuscular Volume 87.7 fL (80.0-98.0); NRBC Abs Auto 0.000 X10*3/uL (0.0-0.012); NRBC Pct Auto 0.0 /100WBC (0.0-0.2); Platelet Count 270 X10*3/uL (160-400); Red Blood Count 5.19 X10*6/uL (4.60-5.80); White Blood Count 7.1 X10*3/uL (4.8-10.8)
[2025-06-30 12:30] LABS: Alanine Aminotransferase 23 U/L (0-40); Albumin Level 4.4 g/dL (3.5-5.0); Alkaline Phosphatase 67 U/L (39-117); Anion Gap 11 (12-20); Aspartate Amino Transferase 19 U/L (5-37); Blood Urea Nitrogen 14 mg/dL (9-16); Calcium 9.2 mg/dL (8.4-10.2); Carbon Dioxide 25 mmol/L (22-29); Chloride 110 mmol/L (96-108); Creatinine Clr Calc Pharmacy 123.0; Estimated Glomerular Filt Rate > 60; Magnesium 2.1 mg/dL (1.6-2.6); Potassium 3.7 mmol/L (3.3-5.1); Sodium 142 mmol/L (135-145); Total Protein 6.8 g/dL (6.5-8.0)
[2025-06-30 12:36] LABS: Troponin-I High Sensitivity < 2.7 ng/L (<3.5-35.0)
== END 2025-06-30 19:59 | disposition home or self-care (01) ==
PROVIDERS: Physician Assistant Medical; Emergency Provider Student in an Organized Health Care Education/Training Program; PCP General Practice
DX: G44.209 Tension-type headache, unspecified, not intractable (principal); R00.1 Bradycardia, unspecified; I49.8 Other specified cardiac arrhythmias; I10 Essential (primary) hypertension; Z79.899 Other long term (current) drug therapy
CPT/HCPCS: 36415; 70450; 80053; 83735; 84484; 85025; 93005; 99283; 99285

== ENCOUNTER → 2025-06-30 11:39 | Outpatient (BNV) | payer OTHER, SELFPAY | PROVIDERS: PCP General Practice; Visit Provider Radiology Diagnostic Radiology | DX: J34.89 Other specified disorders of nose and nasal sinuses (principal) | CPT/HCPCS: 70450 ==

== ENCOUNTER → 2025-06-30 11:39 | Outpatient (BNV) | payer OTHER, SELFPAY | PROVIDERS: Emergency Provider Student in an Organized Health Care Education/Training Program; PCP General Practice; Visit Provider Internal Medicine Cardiovascular Disease | DX: I49.9 Cardiac arrhythmia, unspecified (principal); R00.1 Bradycardia, unspecified | CPT/HCPCS: 93010 ==